=== PATIENT | female | born 1940 | race African-American/Black ===

== ENCOUNTER 2016-10-31 14:16 | Outpatient (CLI) | payer MEDICARE ==
[~2016-10-31] VITALS: Ht 165.1 cm; Wt 69.4 kg
[2016-10-31 14:34] VITALS: BP_SYST 176; BP_DIAS 88; BP_DIAS 96
[2016-11-06] MEDS ORDERED: METF850T2 PO (17:11)
== END 2016-10-31 23:59 | disposition home or self-care (01) ==
LOC: CSC 14:16
PROVIDERS: ATTEND Internal Medicine
DX: F01.50 Vascular dementia, unspecified severity, without behavioral disturbance, psychotic disturbance, mood disturbance, and anxiety (principal); I10 Essential (primary) hypertension; E78.5 Hyperlipidemia, unspecified; M19.042 Primary osteoarthritis, left hand; M19.041 Primary osteoarthritis, right hand; T44.7X6A Underdosing of beta-adrenoreceptor antagonists, initial encounter; Y92.039 Unspecified place in apartment as the place of occurrence of the external cause; K59.09 Other constipation; E03.9 Hypothyroidism, unspecified; E11.9 Type 2 diabetes mellitus without complications; Z79.84 Long term (current) use of oral hypoglycemic drugs; E83.52 Hypercalcemia; N39.41 Urge incontinence; F32.9 Major depressive disorder, single episode, unspecified; R45.3 Demoralization and apathy
CPT/HCPCS: G0463

== ENCOUNTER 2019-03-23 21:38 | Inpatient (IN) | payer MEDICARE, OTHER ==
[~2019-03-23] VITALS: Ht 167.6 cm; Wt 44.6 kg
[~2019-03-23 21:38] MED LIST: METF-441 PO
--- NOTE | 2019-03-23 21:50 | NUR ---
BIB AMBULANCE. DTR PRESENT AT THE BED SIDE. DTR REPORTED INCREASED WEAKNESS AND LATHARGIC SINCE FRIDAY NIGHT. PMH: DM TYPE 2, ANIMAL THERAPIST SHUNT IN PLACE. VSS . PLACED ON A MONITOR . WILL CONT TO MONITOR ,
--- NOTE | 2019-03-23 22:08 | NUR ---
FSBS:[id number] DR EDDY AT THE BED SIDE
[2019-03-23] MEDS ORDERED: IV NS 0.9% 1,000 ML BAG IV ONE ×2 (22:30→23:00)
[2019-03-23 22:50] LABS: WHITE BLOOD COUNT (AUTO) 8.7 K/uL (4.3-11.0)
[2019-03-23 22:51] LABS: HEMATOCRIT 39 % (33-45); HEMOGLOBIN 12.7 g/dL (11.5-14.8); LYMPHOCYTES % (AUTO) 3.5 % (20.0-44.0); MEAN CORPUSCULAR HGB CONC 32 g/dl (31.0-36.0); MEAN CORPUSCULAR VOLUME 91 fL (82-100); MONOCYTES % (AUTO) 3.1 % (2.0-12.0); NEUTROPHILS % (AUTO) 93.4 % (43.0-81.0); PLATELET COUNT (AUTO) 115 /CMM (150-450); RED BLOOD CELL COUNT(AUTO) 4.32 MIL/uL (4.0-5.2)
[2019-03-23 22:53] LABS: BILIRUBIN,TOTAL 0.3 mg/dL (0.2-1.0); CALCIUM, SERUM 10.3 mg/dL (8.5-10.1); CARBON DIOXIDE 34 mmol/L (21-32); CHLORIDE 122 mmol/L (98-107); CREATININE 0.8 mg/dL (0.6-1.3); GLUCOSE 300 mg/dL (74-106); UREA NITROGEN, BLOOD 32 mg/dL (7-18)
[2019-03-23 22:54] LABS: ALANINE AMINOTRANSFERASE 63 U/L (12-78); ALBUMIN 2.7 g/dL (3.4-5.0); ALKALINE PHOSPHATASE 123 U/L (46-116); ASPARTATE AMINOTRANSFERASE 4 U/L (15-37); TOTAL PROTEIN, SERUM 6.1 g/dL (6.4-8.2)
[2019-03-23 22:55] LABS: POTASSIUM 2.4 mmol/L (3.5-5.1); SODIUM SERUM 167 mmol/L (136-145)
[2019-03-23 23:14] LABS: APPEARANCE,URINE SLIGHTLY CLOUDY (CLEAR); COLOR,URINE YELLOW (YELLOW); PROTEIN,URINE 30 mg/dl (NEGATIVE); UGLUCOSE 500 MG/DL mg/dL (NEGATIVE)
[2019-03-23 23:15] LABS: BILIRUBIN,URINE NEGATIVE (NEGATIVE); BLOOD, URINE TRACE Ery/uL (NEGATIVE); KETONES,URINE NEGATIVE (NEGATIVE); LEUKOCYTE ESTERASE ,URINE NEGATIVE (NEGATIVE); NITRITE, URINE NEGATIVE (NEGATIVE)
[2019-03-23] MEDS ORDERED: POTASSIUM CL. PREMIX PERIPHER. 200 ML ONE (23:17)
[2019-03-23] MEDS: POTASSIUM CL. PREMIX PERIPHER. 50 ML IV SCH (23:26)
[2019-03-23] MEDS ORDERED: IV 1/2NS 1000 ML 1,000 ML IV PRN (23:38)
--- NOTE | 2019-03-23 23:40 | NUR ---
311-2 TELE DX DEHYDRATION, HYPOKALCEMIA, HYPERNATREMIA
--- NOTE | 2019-03-23 23:54 | NUR ---
REPORT GIVEN TO MITCH ON THIRD FLOOR
[2019-03-24] VITALS (7 sets, daily range): BP systolic 130–149; BP diastolic 72–86
[2019-03-24] MEDS ORDERED: MAG HYDROX/AL HYDROX/SIMETH 30 ML UDC PO PRN
[2019-03-24] MEDS ORDERED: DEXTROSE 50%-WATER 50 ML DISP.SYRIN IV PRN
[2019-03-24] MEDS ORDERED: ONDANSETRON HCL/PF 4 MG/2 ML VIAL IVP PRN
[2019-03-24] MEDS ORDERED: HYDROCODONE/APAP 5/325MG 1 EACH TABLET PO PRN
[2019-03-24] MEDS ORDERED: MAGNESIUM HYDROXIDE 30 ML UDC PO PRN
[2019-03-24] MEDS ORDERED: ZOLPIDEM TARTRATE 5 MG TABLET PO PRN
[2019-03-24] MEDS ORDERED: Z GUARD REMEDY 2 OZ OINT TP PRN
[2019-03-24] MEDS ORDERED: ACETAMINOPHEN 325 MG TABLET PO PRN
--- NOTE | 2019-03-24 00:25 | NUR ---
dredge master opening notes Received Pt from ER nurse Lore. Pt is awake and aphasic. Pt's daughter at the bed side. Pt's daughter helped with the admission process. Pt potassium was 2.4 and received 2 bags of potassium with Lore and will continue to have 2 more bags of potassium. Pt's glucose was 155 and gave 2 Units of regular insulin. VS is stable Pt is on tele monitor Sinus Rhythm. Safety precaution is maintained. Bed at low position and call light is within reach. Will continue to monitor.
--- NOTE | 2019-03-24 00:30 | NUR ---
TRANSFERRED TO RM 311-2 ON THIRD FLOOR IN STABLE CONDITION UNDER ACLS PROTOCOL
[2019-03-24] MEDS: POTASSIUM CL. PREMIX PERIPHER. 50 ML IV SCH ×9 (00:31→16:27)
--- NOTE | 2019-03-24 00:33 | NUR ---
TWO BAG OF KCL WAS ADMINISTERED AND ANOTHER TWO BAG WAS HANDED TO WILDA ON THIRD FLOOR TO BE ADMINISTERED.
[2019-03-24 00:34] LABS: RBC,URINE 0-2 /HPF (0-2)
[2019-03-24 00:35] LABS: BACTERIA,URINE Many /HPF (None Seen); SQUAMOUS EPITHELIAL CELL,UR Few /HPF (None Seen); WBC,URINE 0-2 /HPF (0-3)
[2019-03-24] MEDS: BLOOD SUGAR DIAGNOSTIC 1 EACH STRIP IN SCH ×4 (00:42→17:45)
[2019-03-24] MEDS: INSULIN REGULAR, HUMAN 100 UNIT/ML 3 ML VIAL SQ PRN ×3 (00:50→17:51)
--- NOTE | 2019-03-24 04:10 | NUR ---
gasket former notes Pt is resting in bed comfortably with eyes closed. No signs of distress or discomfort. NO SOB. Iv sites on L AC is intact and patent. Administered IV fluids 0.45%NS 1000ml rate @ 75ml/hr. Will continue to monitor.
[2019-03-24 06:53] LABS: HEMOGLOBIN 11.2 g/dL (11.5-14.8); RED BLOOD CELL COUNT(AUTO) 3.82 MIL/uL (4.0-5.2); WHITE BLOOD COUNT (AUTO) 6.8 K/uL (4.3-11.0)
[2019-03-24 06:54] LABS: BASOPHILS % (AUTO) 0.1 % (0.0-2.0); EOSINOPHILS % (AUTO) 0.1 % (0.0-6.0); HEMATOCRIT 35 % (33-45); LYMPHOCYTES # (AUTO) 0.3 /CMM (0.8-4.8); LYMPHOCYTES % (AUTO) 4.5 % (20.0-44.0); MEAN CORPUSCULAR HGB CONC 32 g/dl (31.0-36.0); MEAN CORPUSCULAR VOLUME 90 fL (82-100); MONOCYTES # (AUTO) 0.2 /CMM (0.1-1.30); MONOCYTES % (AUTO) 3.3 % (2.0-12.0); NEUTROPHILS # (AUTO) 6.3 /CMM (1.8-8.9); PLATELET COUNT (AUTO) 83 /CMM (150-450)
--- NOTE | 2019-03-24 07:00 | NUR ---
freelance designer closing notes Pt is aphasic/non verbal. Pt is resting in bed comfortbaly. Arouse easily. No signs of acute distress or discomfort. VS is stable. IV sites on left AC is intact, patent and infusing well. Pt is on bus monitor-SR with occasionally PVC, occasionally PAC and occasionally junctional. Pt is NPO per MD order. Pt blood glucose in the morning was 128. Safety precaution is maintained. Bed at low position and call light. Will endorse to morning nurse for ALEX.
[2019-03-24 07:17] LABS: CALCIUM, SERUM 8.5 mg/dL (8.5-10.1); CARBON DIOXIDE 35 mmol/L (21-32); CHLORIDE 125 mmol/L (98-107); CREATININE 0.4 mg/dL (0.6-1.3); GLUCOSE 144 mg/dL (74-106); UREA NITROGEN, BLOOD 22 mg/dL (7-18)
--- NOTE | 2019-03-24 07:17 | NUR ---
DRY MILL OPERATOR NOTE REPORTED CRITICAL LAB RESULTS NA 167 AND K 2.6 TO PRIMARY HOSPITALIST CARLOS ALLEN NP PER PROTOCOL. NO ORDERS AT THIS TIME, PER CARLOS HE WILL REVIEW AND PT IS PENDING NEPHROLOGY CONSULT.
[2019-03-24 07:18] LABS: MAGNESIUM 1.8 mg/dL (1.8-2.4); PHOSPHORUS 1.8 mg/dL (2.5-4.9)
[2019-03-24 07:22] LABS: POTASSIUM 2.6 mmol/L (3.5-5.1); SODIUM SERUM 167 mmol/L (136-145)
--- NOTE | 2019-03-24 07:30 | NUR ---
HOT SAW HELPER OPENING NOTE RECEIVED PT IN BED, SEMI-FOWLERS. PT IS NON-VERBAL, EYES OPEN SPONTANEOUSLY TO VERBAL AND TACTILE STIMULI. NO ACUTE DISTRESS NOTED, BREATHING IS EVEN AND UNLABORED ON ROOM AIR. LEFT AC #20G IS INFUSING 1/2 NS @ 75 ML/HR WITHOUT REDNESS OR SWELLING. ASPIRATION PRECAUTIONS MAINTAINED. PT IS NPO PENDING SWALLOW EVAL. 1:1 SITTER AT THE BEDSIDE FOR SAFETY. ALL NEEDS ATTENDED TO. BED IS LOCKED AND IN LOWEST POSITION, SIDE RAILS UP X2, BED ALARM ON, CALL LIGHT AND POSSESSIONS WITHIN REACH.
[2019-03-24 07:43] LABS: CHOLESTEROL 187 mg/dL (<200); HDL CHOLESTEROL 45 mg/dL (40-60); LDL 109 mg/dL (0-99); THYROID STIMULATING HORMONE 0.362 uIU/mL (0.358-3.74); TRIGLYCERIDES 229 mg/dL (30-150)
--- NOTE | 2019-03-24 07:45 | NUR ---
BUSINESS PROCESS EXPERT NOTE REPORTED TO PRIMARY HOSPITALIST GURINDER ALLEN NP THAT PT PRESENTS WITH INCREASED LEFT SIDED WEAKNESS SINCE ADMISSION WITH NO HEAD IMAGING DONE SINCE ER ADMISSION. PER DMITIRY HE WILL REVIEW AND PLACE ORDERS IF HEAD IMAGING INDICATED.
[2019-03-24] MEDS ORDERED: METF-440 PO (08:39)
[2019-03-24] MEDS: FAMOTIDINE/PF INJ 20 MG/2 ML VIAL IV SCH ×2 (08:40→17:45)
[2019-03-24] MEDS ORDERED: POTA20TA83 PO (08:43)
[2019-03-24] MEDS ORDERED: AMLO10TA4 PO (08:43)
[2019-03-24] MEDS ORDERED: MULT-1200 PO (08:43)
[2019-03-24] MEDS ORDERED: LISI40TA4 PO (08:43)
[2019-03-24] MEDS ORDERED: PANTOPRAZOLE 40 MG VIAL IV SCH (09:00)
[2019-03-24] MEDS ORDERED: IV 1/2NS 1000 ML 1,000 ML IV PRN (10:13)
--- NOTE | 2019-03-24 10:15 | NUR ---
AIR BREAKER OPERATOR NOTE PER AYAKA IN PHARMACY POTASSIUM CHLORIDE MIX COMPATIBLE WITH 1/2 NS FLUIDS.
[2019-03-24] MEDS ORDERED: NEUTRA PHOS 1 POWD.PACKET PO ONE ×2 (10:30→12:00)
--- NOTE | 2019-03-24 10:53 | NUR ---
WOUND CARE CONSULT: PT PRESENTS WITH SACRAL ULCER WITH SURROUNDING DEEP TISSUE INJURY, BUTTOCK AND PERINEAL RASH WITH SKIN STAINING AND RT HEEL INTACT DEEP TISSUE INJURY AND LEFT HEEL SCAR, PRESENT ON ADMISSION. PT IS VERY THIN WITH CURRENT STACY SCORE OF 11. PT ON NUSRAT ISOFLEX LOW AIRLOSS BED. ALL SKIN PROTECTION AND WOUND CARE RECOMMENDATIONS DISCUSSED WITH NURSING STAFF. RECOMMEND SURGICAL CONSULT. DR MARY GRACE PRICE NOTIFIED OF CONSULT REQUEST. IN AGREEMENT WITH PLAN OF CARE. WILL SEE PRN. Addendum: 03/24/19 at 1055 by JOSE VALLES WNDNU Amended: Links added.
[2019-03-24] MEDS ORDERED: HYDROGEL DRESSING 90 GM TUBE TP PRN (11:00)
[2019-03-24] MEDS: HYDROGEL DRESSING 90 GM TUBE TP SCH (11:52)
[2019-03-24] MEDS: IV 1/2NS 1000 ML 1,000 ML IV PRN ×2 (11:53→22:00)
[2019-03-24] MEDS: LISINOPRIL (20MG) 20 MG TABLET PO SCH (16:26)
[2019-03-24] MEDS ORDERED: ENSURE ENLIVE 237 ML LIQUID (VANILLA) PO SCH (17:00)
[2019-03-24] MEDS: ENSURE ENLIVE 237 ML LIQUID (VANILLA) PO SCH (17:45)
[2019-03-24] MEDS: CLOTRIMAZOLE 1% 15 GM TUBE TP SCH (17:45)
--- NOTE | 2019-03-24 18:19 | NUR ---
FLORIST HELPER CLOSING NOTE PT IN BED, SEMI-FOWLERS. PT IS NON-VERBAL, EYES OPEN SPONTANEOUSLY TO VERBAL AND TACTILE STIMULI. NO ACUTE DISTRESS NOTED, BREATHING IS EVEN AND UNLABORED ON ROOM AIR. PT ON MOBILE APPLICATION ENGINEER WITH SINUS TACHYCARDIA WIH PVC AND PJC, HR 110 AT THIS TIME. LEFT AC #20G IS INFUSING 1/2 NS @ 75 ML/HR WITHOUT REDNESS OR SWELLING. ASPIRATION PRECAUTIONS MAINTAINED. ADLS AND WOUND CARE PROVIDED ORDERED AND PT TURNED AND REPOSITIONED Q2H FOR THE DURATION OF THE SHIFT. 1:1 SITTER AT THE BEDSIDE FOR SAFETY. ALL NEEDS ATTENDED TO. BED IS LOCKED AND IN LOWEST POSITION, SIDE RAILS UP X2, BED ALARM ON, CALL LIGHT AND POSSESSIONS WITHIN REACH. WILL ENDORSE TO REGISTERED NURSE POST PARTUM NURSE FOR CONTINUITY OF CARE.
--- NOTE | 2019-03-24 18:51 | NUR ---
MS PAULINO NOTE NOAH GILLETTE FROM CRISIS TEAM, SHE IS PLACING PT ON HOLD AND WILL BRING UP DOCUMENTATION SHORTLY. Addendum: 03/24/19 at 1852 by SARAHI IGLESIAS RN PLEASE DISREGARD, WRONG PT
--- NOTE | 2019-03-24 18:53 | NUR ---
MS RN NOTE URINE COLLECTED VIA STRAIGHT CATH, DENIS JERRY IN LAB FOR DISTRIBUTION COORDINATOR
--- NOTE | 2019-03-24 19:30 | NUR ---
MS RN NOTES RECEIVED ON BED SLEEPING ON SEMI LEFT SIDE POSITION,BREATHING REGULAR,NOT IN ANY FORM OF RESPIRATORY DISTRESS.IVF 1/2 NS AT 100ML/HR RATE IN PROGRESS VIA IV PUMP ON LAC,SITTER AT BEDSIDE FOR SAFETY.SACRAL DRESSING INTACT AND DRY.CALL LIGHT IN REACH,NEEDS ANTICIPATED.
[2019-03-24 20:31] LABS: URINE SODIUM, RANDOM 64 mmol/l (40-220)
[2019-03-24 21:25] LABS: OSMOLALITY,URINE 486 mOS/kg (340-1090)
[2019-03-25] VITALS: BP_SYST 153; BP_DIAS 75; BP_DIAS 78
--- NOTE | 2019-03-25 | NUR ---
HEAD BOYS TENNIS COACH NOTES ACCU-CHECK BLOOD SUGAR CHECK 378,COVERED WITH HUMULIN R 15 UNITS PER SLIDING SCALE.
[2019-03-25] MEDS: BLOOD SUGAR DIAGNOSTIC 1 EACH STRIP IN SCH ×5 (00:11→23:49)
[2019-03-25] MEDS: INSULIN REGULAR, HUMAN 100 UNIT/ML 3 ML VIAL SQ PRN ×5 (00:19→23:52)
--- NOTE | 2019-03-25 03:00 | NUR ---
NAIL FEEDER NOTES SOUND ASLEEP,SITTER AT BEDSIDE.
[2019-03-25 04:00] VITALS: BP 139/69
--- NOTE | 2019-03-25 05:30 | NUR ---
MS RN NOTES ACCU-CHECK BLOOD SUGAR CHECK 180,COVERED WITH HUMULIN R 3 UNITS PER SLIDING SCALE.IVF IN PROGRESS.
--- NOTE | 2019-03-25 06:05 | NUR ---
COMIC BOOK DESIGNER NOTES REMAINS NON VERBAL,OPEN EYES ONLY,SACRAL WOUND DRESSING CHANGED WITH MEPILEX,ID RECOMMEND SURGICAL CONSULT.LEFT ARMS REMAINS FLACCID AND WEAK ON RIGHT ARM.IVF IN PROGRESS.MORNING CARE ADMINISTERED BY ANNETTA BLEVINS TOLERATED WELL.IN NO ACUTE DISTRESS.WILL ENDORSE TO DAY NURSE FOR ALEX.
--- NOTE | 2019-03-25 07:30 | NUR ---
veteran appeals reviewer Opening Note Patient currently resting in bed with eyes open in Semi-Fowlers position, no acute distress noted. Aspiration precautions maintained. Easily arousable to verbal and tactile stimuli. Alert and oriented to self, non-verbal. No acute neurological changes. Respirations even and unlabored on room air. External media monitor in place: current rhythm junctional with PAC and PVC at 97 bpm. Peripheral IV access to the left AC 20 gauge, intact, patent and infusing 0.45% NS at 100 ml/hr. as ordered. Safety and fall precautions in place: bed in lowest and locked position, side rails up x2, bed alarm on, call light and personal possessions in reach, room well lit, floor clutter-free. Patient currently clean, dry and comfortable, on low-air loss mattress. Will continue to monitor and intervene as needed.
[2019-03-25 08:00] VITALS: BP 149/83
--- NOTE | 2019-03-25 08:30 | NUR ---
correctional supervisor lieutenant Note Seen and examined by MD. at bedside. Given verbal update to daughter via telephone. Will continue to monitor.
[2019-03-25] MEDS: IV 1/2NS 1000 ML 1,000 ML IV PRN (08:33)
[2019-03-25] MEDS: ASCORBIC ACID 500 MG TABLET PO SCH (08:34)
[2019-03-25] MEDS: LISINOPRIL (20MG) 20 MG TABLET PO SCH (08:34)
[2019-03-25] MEDS: MULTIVIT W/MINERALS 1 TAB TABLET PO SCH (08:34)
[2019-03-25] MEDS: AMLODIPINE BESYLATE 10 MG TABLET PO SCH (08:34)
[2019-03-25] MEDS: HYDROGEL DRESSING 90 GM TUBE TP SCH (08:37)
[2019-03-25] MEDS: CLOTRIMAZOLE 1% 15 GM TUBE TP SCH ×2 (08:37→17:40)
[2019-03-25] MEDS: FAMOTIDINE/PF INJ 20 MG/2 ML VIAL IV SCH ×2 (08:38→17:41)
[2019-03-25] MEDS: ENSURE ENLIVE 237 ML LIQUID (VANILLA) PO SCH ×3 (08:38→17:41)
[2019-03-25] MEDS ORDERED: MULTIVIT W/MINERALS 1 TAB TABLET PO SCH (09:00)
[2019-03-25 09:04] LABS: BASOPHILS % (AUTO) 0.3 % (0.0-2.0); EOSINOPHILS % (AUTO) 0.7 % (0.0-6.0); HEMATOCRIT 36 % (33-45); HEMOGLOBIN 11.3 g/dL (11.5-14.8); LYMPHOCYTES # (AUTO) 0.4 /CMM (0.8-4.8); LYMPHOCYTES % (AUTO) 5.3 % (20.0-44.0); MEAN CORPUSCULAR HGB CONC 32 g/dl (31.0-36.0); MEAN CORPUSCULAR VOLUME 91 fL (82-100); MONOCYTES # (AUTO) 0.2 /CMM (0.1-1.30); MONOCYTES % (AUTO) 2.9 % (2.0-12.0); NEUTROPHILS # (AUTO) 6.2 /CMM (1.8-8.9); NEUTROPHILS % (AUTO) 90.8 % (43.0-81.0); PLATELET COUNT (AUTO) 70 /CMM (150-450); RED BLOOD CELL COUNT(AUTO) 3.95 MIL/uL (4.0-5.2); WHITE BLOOD COUNT (AUTO) 6.8 K/uL (4.3-11.0)
[2019-03-25 09:21] LABS: CALCIUM, SERUM 8.7 mg/dL (8.5-10.1); CARBON DIOXIDE 32 mmol/L (21-32); CHLORIDE 114 mmol/L (98-107); CREATININE 0.6 mg/dL (0.6-1.3); MAGNESIUM 1.7 mg/dL (1.8-2.4); PHOSPHORUS 2.2 mg/dL (2.5-4.9); SODIUM SERUM 154 mmol/L (136-145); UREA NITROGEN, BLOOD 19 mg/dL (7-18)
[2019-03-25 09:28] LABS: GLUCOSE 360 mg/dL (74-106); POTASSIUM 2.6 mmol/L (3.5-5.1)
[2019-03-25 09:55] LABS: LYMPHOCYTES % (MANUAL) 3 % (16-48); MONOCYTES % (MANUAL) 5 % (0-11.0); NEUTROPHILS % (MANUAL) 92 (42-76)
[2019-03-25] MEDS ORDERED: NEUTRA PHOS 1 POWD.PACKET PO ONE (10:00)
[2019-03-25] MEDS: Magnesium 1GM/D5W 100ML PREMIX 100 ML IV SCH ×2 (11:29→13:14)
[2019-03-25] MEDS: POTASSIUM CL. PREMIX PERIPHER. 50 ML IV SCH ×6 (11:29→18:53)
[2019-03-25] MEDS ORDERED: SILVER NITRATE APPLICATOR 1 EA BOX TP ONE (12:00)
--- NOTE | 2019-03-25 18:30 | NUR ---
power shovel operator Closing Note Patient currently resting in bed with eyes open in Semi-Fowlers position, no acute distress noted. Aspiration precautions maintained. Easily arousable to verbal and tactile stimuli. Alert and oriented to self, non-verbal. No acute neurological changes. Respirations even and unlabored on room air. External satellite project site monitor in place: current rhythm junctional with PAC and PVC at 92 bpm. Peripheral IV access to the left AC 20 gauge, intact, patent and infusing fluids as ordered. Safety and fall precautions in place: bed in lowest and locked position, side rails up x2, bed alarm on, call light and personal possessions in reach, room well lit, floor clutter-free. Patient currently clean, dry and comfortable, on low-air loss mattress. Turned and repositioned every 2 hours and as tolerated to maintain skin integrity. Family present at bedside. No acute events this shift. Will endorse to Pina RN for continuity of care.
--- NOTE | 2019-03-25 19:30 | NUR ---
PROFESSIONAL BASS FISHERMAN NOTES RECEIVED ON BED HAVING DINNER FOOD,WITH DAUGHTER AT BEDSIDE.NOTED ALMOST 100% OF HER DINNER FOOD CONSUMED.NEGATIVE FOR ASPIRATION.HOB ELEVATED .LAST DOSE OF POTASSIUM IV INFUSING VIA IV PUMP.IV SITE REMAINS PATENT.LEFT ARM REMAINS FLACCID AND WEAKNESS ON THE RIGHT ARM.MEPILEX ON SACRAL AREA INTACT AND DRY.REPOSITION PER PROTOCOL.ON GEL BED FOR WOUND MANAGEMENT.WILL CONTINUE TO MONITOR STATUS.
[2019-03-25 20:00] VITALS: BP 136/62
--- NOTE | 2019-03-25 21:23 | NUR ---
ADMITTING COORDINATOR NOTES STARTED ON IVF 1 WITH 40MEQ KCL AT 100ML/HR RATE ORDERED.
--- NOTE | 2019-03-26 | NUR ---
DIRECTOR INSTRUMENTATION NOTES ACCU-CHECK BLOOD SUGAR CHECK 225,COVERED WITH HUMULIN R 6 UNITS ,GIVEN SQ ON RIGHT LOWER QUADRANT
[2019-03-26 00:42] VITALS: BP 130/72
[2019-03-26 04:00] VITALS: BP 139/69
[2019-03-26] MEDS: BLOOD SUGAR DIAGNOSTIC 1 EACH STRIP IN SCH ×3 (05:26→17:25)
--- NOTE | 2019-03-26 05:30 | NUR ---
FOOD MANAGER NOTES ACCU-CHECK BLOOD SUGAR CHECK 250,COVERED WITH HUMULIN R 6 UNITS GIVEN SQ ON LEFT DELTOID
[2019-03-26] MEDS: INSULIN REGULAR, HUMAN 100 UNIT/ML 3 ML VIAL SQ PRN ×3 (05:33→17:44)
--- NOTE | 2019-03-26 06:25 | NUR ---
PAINTING SUPERVISOR NOTES NO SIGNIFICANT CHANGE IN STATUS.REMAINS NON VERBAL,IVF IN PROGRESS,MORNING CARE RENDERED,TOLERATED WELL.FOR SACRAL WOUND DEBRIDEMENT BY BERNY TODAY,CONSENT ON CHART.REPOSITION PER PROTOCOL.CALL LIGHT IN REACH,NEEDS ATTENDED.
[2019-03-26 07:05] LABS: BASOPHILS % (AUTO) 0.1 % (0.0-2.0); CALCIUM, SERUM 8.5 mg/dL (8.5-10.1); CARBON DIOXIDE 35 mmol/L (21-32); CHLORIDE 115 mmol/L (98-107); CREATININE 0.4 mg/dL (0.6-1.3); EOSINOPHILS % (AUTO) 0.1 % (0.0-6.0); GLUCOSE 259 mg/dL (74-106); HEMATOCRIT 29 % (33-45); HEMOGLOBIN 9.6 g/dL (11.5-14.8); LYMPHOCYTES # (AUTO) 0.3 /CMM (0.8-4.8); LYMPHOCYTES % (AUTO) 5.4 % (20.0-44.0); MAGNESIUM 2.1 mg/dL (1.8-2.4); MEAN CORPUSCULAR HGB CONC 33 g/dl (31.0-36.0); MEAN CORPUSCULAR VOLUME 89 fL (82-100); MONOCYTES # (AUTO) 0.2 /CMM (0.1-1.30); MONOCYTES % (AUTO) 2.9 % (2.0-12.0); NEUTROPHILS % (AUTO) 91.5 % (43.0-81.0); PHOSPHORUS 2.3 mg/dL (2.5-4.9); PLATELET COUNT (AUTO) 66 /CMM (150-450); POTASSIUM 3.6 mmol/L (3.5-5.1); RED BLOOD CELL COUNT(AUTO) 3.24 MIL/uL (4.0-5.2); SODIUM SERUM 152 mmol/L (136-145); UREA NITROGEN, BLOOD 17 mg/dL (7-18); WHITE BLOOD COUNT (AUTO) 5.5 K/uL (4.3-11.0)
--- NOTE | 2019-03-26 07:15 | NUR ---
filter operator Opening Note Patient currently resting in bed with eyes open in Semi-Fowlers position, no acute distress noted. Aspiration precautions maintained. Easily arousable to verbal and tactile stimuli. Alert and oriented to self, non-verbal. No acute neurological changes. Respirations even and unlabored on room air. External production internship in place: current rhythm junctional with PAC and PVC at 85 bpm. Peripheral IV access to the left AC 20 gauge, intact, patent and infusing fluids as ordered. Safety and fall precautions in place: bed in lowest and locked position, side rails up x2, bed alarm on, call light and personal possessions in reach, room well lit, floor clutter-free. Patient currently clean, dry and comfortable, on low-air loss mattress. Will continue to monitor and intervene as needed.
[2019-03-26 08:00] VITALS: BP 154/77
[2019-03-26 08:38] LABS: BAND % (MANUAL) 1 % (0.0-5.0); LYMPHOCYTES % (MANUAL) 8 % (16-48); MONOCYTES % (MANUAL) 3 % (0-11.0); NEUTROPHILS % (MANUAL) 88 (42-76)
[2019-03-26] MEDS: MULTIVIT W/MINERALS 1 TAB TABLET PO SCH (09:10)
[2019-03-26] MEDS: ASCORBIC ACID 500 MG TABLET PO SCH (09:10)
[2019-03-26] MEDS: FAMOTIDINE/PF INJ 20 MG/2 ML VIAL IV SCH ×2 (09:10→17:00)
[2019-03-26] MEDS: LISINOPRIL (20MG) 20 MG TABLET PO SCH (09:11)
[2019-03-26] MEDS: ENSURE ENLIVE 237 ML LIQUID (VANILLA) PO SCH ×3 (09:11→17:00)
[2019-03-26] MEDS: AMLODIPINE BESYLATE 10 MG TABLET PO SCH (09:11)
[2019-03-26] MEDS: CLOTRIMAZOLE 1% 15 GM TUBE TP SCH ×2 (09:22→17:36)
[2019-03-26] MEDS: HYDROGEL DRESSING 90 GM TUBE TP SCH (09:23)
[2019-03-26] MEDS ORDERED: NEUTRA PHOS 1 POWD.PACKET PO ONE (10:00)
--- NOTE | 2019-03-26 11:00 | NUR ---
superintendent service Note Seen and examined by MD. at bedside. Given verbal update to daughter via telephone. Will continue to monitor.
[2019-03-26] MEDS ORDERED: NEUTRA PHOS 1 POWD.PACKET NG ONE (12:00)
[2019-03-26 16:00] VITALS: BP 155/67
--- NOTE | 2019-03-26 18:50 | NUR ---
MS RN Closing Note Patient currently resting in bed with eyes open in Semi-Fowlers position, no acute distress noted. Aspiration precautions maintained. Easily arousable to verbal and tactile stimuli. Alert and oriented to self, non-verbal. Tracks with eyes. No acute neurological changes. Respirations even and unlabored on room air. Peripheral IV access to the left AC 20 gauge, intact, patent and infusing fluids as ordered. Safety and fall precautions in place: bed in lowest and locked position, side rails up x2, bed alarm on, call light and personal possessions in reach, room well lit, floor clutter-free. Patient currently clean, dry and comfortable, on low-air loss mattress. Turned and repositioned every 2 hours and as tolerated to maintain skin integrity. Family present at bedside. No acute events this shift. Wound care rendered as ordered. Will endorse to nightshift RN for continuity of care.
--- NOTE | 2019-03-26 19:40 | NUR ---
MSRN ASLEEP. APPEARS COMFORTABLE. DAUGHTER AT BEDSIDE. DISCUSSED TO DAUGHTER PLAN OF CARE AND MEDICATION REGIMEN. NEEDS FREQ REPOSITIONING, SACRAL ULCER COVERED WITH MEPILEX, S/P INCISION AND DEBRIDEMENT EARLIER TODAY. NO OTHER NEEDS FOR NOW, CLOSELY WATCHED.
[2019-03-26 20:00] VITALS: BP 131/68
[2019-03-26] MEDS: CEFEPIME 1 GM in IV D5W 50 ML IV SCH (21:46)
--- NOTE | 2019-03-26 22:30 | NUR ---
MSRN IV SITE LEAKING, STARTED 24 GAUGE ON RIGHT HAND WITH GOOD BLOOD RETURN BY RN. REMAINS NONVERBAL . HS CARE STARTED, KEPT DRY CLEAN AND COMFORTABLE. PRESENT IVF INFUSING WELL.
[2019-03-27] MEDS: BLOOD SUGAR DIAGNOSTIC 1 EACH STRIP IN SCH ×5 (00:49→23:27)
[2019-03-27] MEDS: INSULIN REGULAR, HUMAN 100 UNIT/ML 3 ML VIAL SQ PRN ×5 (00:50→23:28)
[2019-03-27 06:21] LABS: EOSINOPHILS % (AUTO) 0.1 % (0.0-6.0); HEMATOCRIT 31 % (33-45); HEMOGLOBIN 10.4 g/dL (11.5-14.8); LYMPHOCYTES # (AUTO) 0.3 /CMM (0.8-4.8); LYMPHOCYTES % (AUTO) 5.1 % (20.0-44.0); MEAN CORPUSCULAR HGB CONC 34 g/dl (31.0-36.0); MEAN CORPUSCULAR VOLUME 89 fL (82-100); MONOCYTES # (AUTO) 0.2 /CMM (0.1-1.30); MONOCYTES % (AUTO) 3.2 % (2.0-12.0); NEUTROPHILS # (AUTO) 5.4 /CMM (1.8-8.9); NEUTROPHILS % (AUTO) 91.6 % (43.0-81.0); PLATELET COUNT (AUTO) 77 /CMM (150-450); RED BLOOD CELL COUNT(AUTO) 3.44 MIL/uL (4.0-5.2)
[2019-03-27 06:23] LABS: CALCIUM, SERUM 8.7 mg/dL (8.5-10.1); CARBON DIOXIDE 34 mmol/L (21-32); CHLORIDE 113 mmol/L (98-107); CREATININE 0.5 mg/dL (0.6-1.3); GLUCOSE 291 mg/dL (74-106); PHOSPHORUS 2.3 mg/dL (2.5-4.9); POTASSIUM 3.5 mmol/L (3.5-5.1); SODIUM SERUM 152 mmol/L (136-145); UREA NITROGEN, BLOOD 20 mg/dL (7-18)
--- NOTE | 2019-03-27 07:00 | NUR ---
MSRN ENDORSED TO INCOMING RN FOR CONTINUITY OF CARE. PATIENT REMAINS UNCHANGED.
[2019-03-27 08:00] VITALS: BP 160/71
[2019-03-27] MEDS: FAMOTIDINE/PF INJ 20 MG/2 ML VIAL IV SCH ×2 (08:59→18:03)
[2019-03-27] MEDS: CEFEPIME 1 GM in IV D5W 50 ML IV SCH (08:59)
[2019-03-27] MEDS: ASCORBIC ACID 500 MG TABLET PO SCH (09:00)
[2019-03-27] MEDS: AMLODIPINE BESYLATE 10 MG TABLET PO SCH (09:00)
[2019-03-27] MEDS: MULTIVIT W/MINERALS 1 TAB TABLET PO SCH (09:00)
[2019-03-27] MEDS: ENSURE ENLIVE 237 ML LIQUID (VANILLA) PO SCH ×3 (09:16→18:03)
[2019-03-27] MEDS: LISINOPRIL (20MG) 20 MG TABLET PO SCH (09:16)
[2019-03-27 09:21] LABS: LYMPHOCYTES % (MANUAL) 4 % (16-48); MONOCYTES % (MANUAL) 4 % (0-11.0); NEUTROPHILS % (MANUAL) 92 (42-76)
[2019-03-27] MEDS: HYDROGEL DRESSING 90 GM TUBE TP SCH (11:07)
[2019-03-27] MEDS: CLOTRIMAZOLE 1% 15 GM TUBE TP SCH ×2 (11:07→17:00)
[2019-03-27] MEDS ORDERED: NEUTRA PHOS 1 POWD.PACKET PO ONE (12:30)
[2019-03-27 16:00] VITALS: BP 153/88
[2019-03-27] MEDS: CEFAZOLIN 1 GM in IV D5W 50 ML IV SCH (19:00)
--- NOTE | 2019-03-27 19:14 | NUR ---
MS RN RECEIVE PT IN BED OPENS EYES NON VERBAL, RESPIRATIONS EVEN AND UNLABORED,STABLE, NO S/S OF DISTRESS, SAFETY MEASURES IN PLACE. WILL CONTINUE TO MONITOR
--- NOTE | 2019-03-27 19:55 | NUR ---
PATIENT ASLEEP. APPEARS COMFORTABLE. DAUGHTER AT BEDSIDE. NEEDS ATTENDED, PT TURNED AND REPOSITIONED Q2H, WOUND CARE PERFORMED, POST DEBRIDEMENT PICTURE TAKEN AND PLACED IN THE CHART. IV ASSESS INTACT AND PATENT, IV FLUID IS RUNNING ORDERED. WILL ENDORSE TO NEXT SHIFT FOR ALEX.
[2019-03-27 20:00] VITALS: BP 151/77
[2019-03-27] MEDS ORDERED: CEPHALEXIN MONOHYDRATE 250 MG CAPSULE PO SCH (21:00)
[2019-03-27] MEDS: Potassium Chloride 20 MEQ in IV D5W 1,000 ML IV PRN (21:09)
[2019-03-28] MEDS: CEFAZOLIN 1 GM in IV D5W 50 ML IV SCH ×3 (01:55→17:07)
[2019-03-28] MEDS: BLOOD SUGAR DIAGNOSTIC 1 EACH STRIP IN SCH ×3 (05:18→16:46)
[2019-03-28] MEDS: INSULIN REGULAR, HUMAN 100 UNIT/ML 3 ML VIAL SQ PRN ×4 (05:20→21:56)
--- NOTE | 2019-03-28 06:19 | NUR ---
MS RN ASLEEP AND EASILY AWAKEN, RESPIRATION EVEN AND UNLABORED, KEPT CLEAN AND DRY AND COMFORTABLE. NEEDS ATTENDED AND ANTICIPATED, NURSING CARE RENDERED, OFFLOAD HEELS AND ELBOWS. REPOSITION EVERY 2 HOURS. TREATMENT ORDERED TO THE WOUND. GOOD SKIN CARE PROVIDED. SAFETY MEASURES AT ALL TIMES. ENDORSE TO THE NEXT SHIFT.
[2019-03-28 06:39] LABS: EOSINOPHILS % (AUTO) 0.1 % (0.0-6.0); HEMATOCRIT 28 % (33-45); HEMOGLOBIN 9.3 g/dL (11.5-14.8); LYMPHOCYTES # (AUTO) 0.3 /CMM (0.8-4.8); LYMPHOCYTES % (AUTO) 4.2 % (20.0-44.0); MEAN CORPUSCULAR HGB CONC 34 g/dl (31.0-36.0); MEAN CORPUSCULAR VOLUME 89 fL (82-100); MONOCYTES # (AUTO) 0.2 /CMM (0.1-1.30); MONOCYTES % (AUTO) 3.5 % (2.0-12.0); NEUTROPHILS # (AUTO) 5.7 /CMM (1.8-8.9); NEUTROPHILS % (AUTO) 92.2 % (43.0-81.0); PLATELET COUNT (AUTO) 80 /CMM (150-450); RED BLOOD CELL COUNT(AUTO) 3.12 MIL/uL (4.0-5.2); WHITE BLOOD COUNT (AUTO) 6.2 K/uL (4.3-11.0)
[2019-03-28 06:43] LABS: CALCIUM, SERUM 8.4 mg/dL (8.5-10.1); CARBON DIOXIDE 32 mmol/L (21-32); CHLORIDE 110 mmol/L (98-107); CREATININE 0.5 mg/dL (0.6-1.3); GLUCOSE 296 mg/dL (74-106); PHOSPHORUS 2.3 mg/dL (2.5-4.9); POTASSIUM 3.5 mmol/L (3.5-5.1); SODIUM SERUM 147 mmol/L (136-145); UREA NITROGEN, BLOOD 19 mg/dL (7-18)
[2019-03-28 07:42] LABS: LYMPHOCYTES % (MANUAL) 9 % (16-48); MONOCYTES % (MANUAL) 1 % (0-11.0); NEUTROPHILS % (MANUAL) 90 (42-76)
[2019-03-28 08:00] VITALS: BP 130/63
[2019-03-28] MEDS: MULTIVIT W/MINERALS 1 TAB TABLET PO SCH (08:54)
[2019-03-28] MEDS: ASCORBIC ACID 500 MG TABLET PO SCH (08:54)
[2019-03-28] MEDS: FAMOTIDINE/PF INJ 20 MG/2 ML VIAL IV SCH ×2 (08:54→17:07)
[2019-03-28] MEDS: AMLODIPINE BESYLATE 10 MG TABLET PO SCH (08:56)
[2019-03-28] MEDS: LISINOPRIL (20MG) 20 MG TABLET PO SCH (08:57)
[2019-03-28] MEDS ORDERED: NEUTRA PHOS 1 POWD.PACKET PO ONE (09:00)
[2019-03-28] MEDS: THERAHONEY GEL 1.5 OZ TUBE TP SCH (09:00)
[2019-03-28] MEDS: CLOTRIMAZOLE 1% 15 GM TUBE TP SCH ×2 (09:00→17:09)
[2019-03-28] MEDS: HYDROGEL DRESSING 90 GM TUBE TP SCH (09:00)
[2019-03-28] MEDS: ENSURE ENLIVE 237 ML LIQUID (VANILLA) PO SCH ×3 (09:02→17:09)
[2019-03-28 09:19] VITALS: BP 130/63
[2019-03-28] MEDS: Potassium Chloride 20 MEQ in IV D5W 1,000 ML IV PRN (11:52)
--- NOTE | 2019-03-28 12:00 | NUR ---
PETE APPLIED TO THE AFFECTED ARIA DIRECTED.
[2019-03-28 15:52] VITALS: BP 139/76
--- NOTE | 2019-03-28 19:00 | NUR ---
PATIENT ASLEEP. NO S/S PAIN OR DISCOMFORT. DAUGHTER AT BEDSIDE. NEEDS ATTENDED, PT TURNED AND REPOSITIONED Q2H, WOUND CARE PERFORMED, IV ASSESS INTACT AND PATENT, IV FLUID IS RUNNING ORDERED. WILL ENDORSE TO NEXT SHIFT FOR ALEX.
--- NOTE | 2019-03-28 19:54 | NUR ---
RN MS OPENING NOTES PT IN BED, SLEEPING, EASILY AROUSED TO NAME CALL, BREATHING EVEN AND UNLABORED ON ROOM AIR. IN NO APPARENT PAIN OR DISCOMFORT AT THIS TIME, IV ACCESS ON THE R HAND 24G WITH 1/2 NS WITH 40 MEQ @100ML./HR BED IN LOWEST LOCKED POSITION, CALL LIGHT WITHIN REACH AT ALL TIMES. DAUGHTER AT BEDSIDE. WILL CONTINUE TO MONITOR FREQUENTLY.
[2019-03-28 20:00] VITALS: BP 149/68
[2019-03-28] MEDS ORDERED: INSULIN GLARGINE, 100 UNIT/ML CARTRIDGE SQ SCH (22:00)
[2019-03-29] MEDS: BLOOD SUGAR DIAGNOSTIC 1 EACH STRIP IN SCH ×4 (00:17→17:22)
[2019-03-29] MEDS: INSULIN REGULAR, HUMAN 100 UNIT/ML 3 ML VIAL SQ PRN ×4 (00:19→17:29)
[2019-03-29] MEDS: CEFAZOLIN 1 GM in IV D5W 50 ML IV SCH ×3 (01:40→17:33)
[2019-03-29] MEDS: Potassium Chloride 20 MEQ in IV D5W 1,000 ML IV PRN (01:41)
--- NOTE | 2019-03-29 06:03 | NUR ---
RN MS CLOSING NOTES PT REMAINS IN BED, SLEEPING, EASILY AROUSED TO NAME CALL, BREATHING EVEN AND UNLABORED ON ROOM AIR. IN NO APPARENT PAIN OR DISCOMFORT AT THIS TIME, IV ACCESS ON THE R HAND 24G WITH 1/2 NS WITH 20 MEQ @100ML./HR BG OF 249, INSULIN GIVEN. BED IN LOWEST LOCKED POSITION, CALL LIGHT WITHIN REACH AT ALL TIMES. DAUGHTER AT BEDSIDE. WILL ENDORSE TO DAY NURSE FOR ALEX.
--- NOTE | 2019-03-29 07:10 | NUR ---
m/s director physical therapy: initial assessment received pt in bed with eyes open, non-verbal, and unable to comprehend. reality orientation provided prn. vp marketing services and skin at bedside to draw blood, but unable to due to hard stick. noted iv leaking to right hand. no apparent distress noted. will continue to monitor.
[2019-03-29 07:17] LABS: CALCIUM, SERUM 8.5 mg/dL (8.5-10.1); CARBON DIOXIDE 29 mmol/L (21-32); CHLORIDE 106 mmol/L (98-107); CREATININE 0.4 mg/dL (0.6-1.3); GLUCOSE 256 mg/dL (74-106); PHOSPHORUS 2.6 mg/dL (2.5-4.9); POTASSIUM 3.7 mmol/L (3.5-5.1); SODIUM SERUM 142 mmol/L (136-145); UREA NITROGEN, BLOOD 20 mg/dL (7-18)
[2019-03-29] MEDS: LISINOPRIL (20MG) 20 MG TABLET PO SCH (08:24)
[2019-03-29] MEDS: MULTIVIT W/MINERALS 1 TAB TABLET PO SCH (08:25)
[2019-03-29] MEDS: ASCORBIC ACID 500 MG TABLET PO SCH (08:25)
[2019-03-29] MEDS: AMLODIPINE BESYLATE 10 MG TABLET PO SCH (08:25)
[2019-03-29] MEDS: ENSURE ENLIVE 237 ML LIQUID (VANILLA) PO SCH (08:30)
--- NOTE | 2019-03-29 08:30 | NUR ---
m/s waiter/waitress second class: notes pt received glucerna on her tray, but order was ensure. pt is diabetic and per recommendation pt should be on glucerna. order change to glucerna. lab called and informed me that her blood was clotted and someone will draw her lab around 9am.
[2019-03-29 08:38] VITALS: BP 165/78
--- NOTE | 2019-03-29 10:00 | NUR ---
m/s corn shucker: notes attempted to insert new iv, but unsuccessful. will continue to monitor.
[2019-03-29] MEDS: THERAHONEY GEL 1.5 OZ TUBE TP SCH (11:17)
[2019-03-29] MEDS: CLOTRIMAZOLE 1% 15 GM TUBE TP SCH ×2 (11:18→17:22)
[2019-03-29] MEDS: HYDROGEL DRESSING 90 GM TUBE TP SCH (11:21)
--- NOTE | 2019-03-29 11:30 | NUR ---
m/s dairy cattle farm worker: notes e.r. nurse here to inserted new iv to right hand, gauge #22 at this time. will continue to monitor.
[2019-03-29] MEDS: FAMOTIDINE/PF INJ 20 MG/2 ML VIAL IV SCH ×2 (11:42→17:33)
[2019-03-29] MEDS: GLUCERNA SHAKE 237 ML CAN PO SCH ×2 (12:07→17:22)
--- NOTE | 2019-03-29 14:00 | NUR ---
m/s television analyzer: notes daughter visiting at this time and updated plan of care; also all questions and concerns answered.
--- NOTE | 2019-03-29 14:30 | NUR ---
m/s artificial breeding distributor: notes received order to d'c iv fluids of d5w with 20meq potassium. order read back and carried out and acknowledged.
--- NOTE | 2019-03-29 16:15 | NUR ---
Post-op java web application developer Note Patient ambulates with steady gait, in stable condition. Vital signs stable. Monitored appropriately. Personal belongings inventoried, signed belongings form. No skin issues noted. Peripheral IV access established to the left hand 20 gauge removed with catheter tip intact, no bleeding, redness or swelling of site. Provided post-operative education, discharge education and Exitcare provided to both patient and spouse. Emphasized emergency situations and possible complications with both patient and spouse. Verbalized understanding, signed discharge form. All questions answered. ID bands removed. Patient escorted to [facility] via wheelchair with ISIDRO Casiano, discharged home in stable condition with spouse, Shea, via private car. Addendum: 03/29/19 at 1616 by TORSTEN LAMB RN Correction: Documentation for wrong patient for this entry.
[2019-03-29 16:18] VITALS: BP 140/78
--- NOTE | 2019-03-29 16:30 | NUR ---
m/s all round butcher: notes daughter left at this time. pt resting comfortable with no distress noted. will monitor.
--- NOTE | 2019-03-29 17:25 | NUR ---
m/s community outreach director: notes dr. perez (surgeon) here and clarify sacral wound tx order with order to d'c hydrogel. order read back and carried out.
--- NOTE | 2019-03-29 18:30 | NUR ---
m/s roll or tape edge machine operator: notes resting comfortable in bed with no distress noted. needs attended. call light within reach. will continue to monitor.
--- NOTE | 2019-03-29 19:22 | NUR ---
RN MS OPENING NOTES PT IN BED, SLEEPING, EASILY AROUSED TO NAME CALL, BREATHING EVEN AND UNLABORED ON ROOM AIR. IN NO APPARENT PAIN OR DISCOMFORT AT THIS TIME, IV ACCESS ON THE R HAND 22 SL, PATENT AND FLUSHING. BED IN LOWEST LOCKED POSITION, CALL LIGHT WITHIN REACH AT ALL TIMES. WILL CONTINUE TO MONITOR FREQUENTLY.
[2019-03-29 19:45] LABS: BASOPHILS % (AUTO) 0.3 % (0.0-2.0); EOSINOPHILS % (AUTO) 1.3 % (0.0-6.0); HEMATOCRIT 31 % (33-45); HEMOGLOBIN 10.4 g/dL (11.5-14.8); LYMPHOCYTES # (AUTO) 0.5 /CMM (0.8-4.8); LYMPHOCYTES % (AUTO) 5.2 % (20.0-44.0); MEAN CORPUSCULAR HGB CONC 33 g/dl (31.0-36.0); MEAN CORPUSCULAR VOLUME 89 fL (82-100); MONOCYTES # (AUTO) 0.3 /CMM (0.1-1.30); MONOCYTES % (AUTO) 3.7 % (2.0-12.0); NEUTROPHILS # (AUTO) 7.8 /CMM (1.8-8.9); NEUTROPHILS % (AUTO) 89.5 % (43.0-81.0); PLATELET COUNT (AUTO) 118 /CMM (150-450); RED BLOOD CELL COUNT(AUTO) 3.52 MIL/uL (4.0-5.2); WHITE BLOOD COUNT (AUTO) 8.8 K/uL (4.3-11.0)
[2019-03-29 20:00] VITALS: BP 138/77
[2019-03-29 20:12] VITALS: BP 138/77
[2019-03-29] MEDS: INSULIN GLARGINE, 100 UNIT/ML CARTRIDGE SQ SCH (21:55)
[2019-03-30] MEDS: INSULIN REGULAR, HUMAN 100 UNIT/ML 3 ML VIAL SQ PRN ×5 (00:32→23:30)
[2019-03-30] MEDS: BLOOD SUGAR DIAGNOSTIC 1 EACH STRIP IN SCH ×5 (00:33→23:28)
[2019-03-30] MEDS: CEFAZOLIN 1 GM in IV D5W 50 ML IV SCH ×3 (02:02→18:31)
--- NOTE | 2019-03-30 06:09 | NUR ---
RN MS CLOSING NOTES PT REMAINS IN BED, SLEEPING, EASILY AROUSED TO NAME CALL, BREATHING EVEN AND UNLABORED ON ROOM AIR. IN NO APPARENT PAIN OR DISCOMFORT AT THIS TIME, IV ACCESS ON THE R HAND 22G SL PATENT AND FLUSHING. BG OF 172, INSULIN GIVEN. BED IN LOWEST LOCKED POSITION, CALL LIGHT WITHIN REACH AT ALL TIMES. WILL ENDORSE TO DAY NURSE FOR ALEX.
--- NOTE | 2019-03-30 07:00 | NUR ---
MS RN INITIAL NOTES Report received at bedside. Patient received in bed, awake, comfortable. Patient is non-verbal. No signs and symptoms of distress. No SOB/labored breathing noted. Safety measures in place. Will continue to monitor and assess patient
[2019-03-30 08:00] VITALS: BP 140/77
[2019-03-30] MEDS: GLUCERNA SHAKE 237 ML CAN PO SCH ×3 (08:04→17:23)
[2019-03-30] MEDS: AMLODIPINE BESYLATE 10 MG TABLET PO SCH (08:42)
[2019-03-30] MEDS: MULTIVIT W/MINERALS 1 TAB TABLET PO SCH (08:42)
[2019-03-30] MEDS: ASCORBIC ACID 500 MG TABLET PO SCH (08:42)
[2019-03-30] MEDS: FAMOTIDINE/PF INJ 20 MG/2 ML VIAL IV SCH ×2 (08:42→17:19)
[2019-03-30] MEDS: LISINOPRIL (20MG) 20 MG TABLET PO SCH (08:42)
[2019-03-30] MEDS: CLOTRIMAZOLE 1% 15 GM TUBE TP SCH ×2 (08:43→17:24)
[2019-03-30] MEDS: THERAHONEY GEL 1.5 OZ TUBE TP SCH (08:43)
--- NOTE | 2019-03-30 11:55 | NUR ---
MS RN NOTES Ms. Dora NP at bedside
[2019-03-30 16:40] VITALS: BP 145/71
--- NOTE | 2019-03-30 19:10 | NUR ---
MS RN OPENING NOTES Received patient sitting up in bed watching TV, daughter at bedside. Breathing even and unlabored. Not in any distress, on room air. Daughter said she just finished feeding her mother, tolerating well. Safety measures in place; call light within reach. Bed in low, locked position. Patient stable as endorsed by the morning RN. Will continue to monitor accordingly
--- NOTE | 2019-03-30 19:35 | NUR ---
MS RN CLOSING NOTES Patient remained in bed, intermittently sleeping, easily aroused. All due meds given and tolerated. No facial grimacing or moaning noted or reported. No SOB/labored breathing noted or reported. No signs and symptoms of distress noted or reported. Continue antibiotics and hospital stay as planned. Kept patient clean, dry and comfortable. Wound treatment rendered. Bed in lowest position with bed alarm on and call light within reach. Daughter at bedside aware of possible discharge tomorrow. Endorsed to oncoming shift nurse
--- NOTE | 2019-03-30 19:37 | NUR ---
MS LORA CLOSING NOTES Patient remained in bed, intermittently sleeping, easily aroused. All due meds given and tolerated. No facial grimacing or moaning noted or reported. On continuous oxygen therapy @2LPM via nasal cannula with no SOB/labored breathing noted or reported. No signs and symptoms of distress noted or reported. Continue antibiotics and hospital stay as planned. Continue on IVF treatment. Kept patient clean, dry and comfortable. wound treatment rendered. Called RT for breathing treatment. Awaiting for arrival. Bed in lowest position with bed alarm on and call light within reach. Endorsed to oncoming shift nurse Addendum: 03/31/19 at 0832 by ROBBY HINOJOSA RN INCORRECT PATIENT Addendum: 03/31/19 at 0834 by ROBBY HINOJOSA RN INCORRECT PATIENT (DUPLICATE)
[2019-03-30 20:19] VITALS: BP 155/77
[2019-03-30] MEDS: INSULIN GLARGINE, 100 UNIT/ML CARTRIDGE SQ SCH (21:35)
--- NOTE | 2019-03-30 21:35 | NUR ---
RN NOTES BSL checked- 295mg/dL. Lantus 10units given as ordered. Will continue to monitor
--- NOTE | 2019-03-30 23:30 | NUR ---
RN NOTES BSL checked- 276mg/dL. Insulin 9units given per sliding scale. Will continue to monitor
[2019-03-31] MEDS: CEFAZOLIN 1 GM in IV D5W 50 ML IV SCH ×2 (01:41→10:34)
[2019-03-31] MEDS: BLOOD SUGAR DIAGNOSTIC 1 EACH STRIP IN SCH ×2 (05:29→12:23)
[2019-03-31] MEDS: INSULIN REGULAR, HUMAN 100 UNIT/ML 3 ML VIAL SQ PRN ×2 (05:31→12:25)
--- NOTE | 2019-03-31 05:31 | NUR ---
RN NOTES BSL checked- 159mg/dL. Insulin 2units given per sliding scale.
--- NOTE | 2019-03-31 07:27 | NUR ---
MS RN CLOSING NOTES Patient in bed, awake, non- verbal. Breathing even and unlabored. Not in any distress, on room air. IV access intact and patent. No acute changes overnight. Safety measures in place. Endorsed ALEX to AM RN
[2019-03-31 08:00] VITALS: BP 133/61
[2019-03-31] MEDS: GLUCERNA SHAKE 237 ML CAN PO SCH ×2 (08:31→12:23)
[2019-03-31 09:16] VITALS: BP 133/71
[2019-03-31] MEDS: MULTIVIT W/MINERALS 1 TAB TABLET PO SCH (09:16)
[2019-03-31] MEDS: ASCORBIC ACID 500 MG TABLET PO SCH (09:16)
[2019-03-31] MEDS: LISINOPRIL (20MG) 20 MG TABLET PO SCH (09:16)
[2019-03-31] MEDS: AMLODIPINE BESYLATE 10 MG TABLET PO SCH (09:16)
[2019-03-31] MEDS: FAMOTIDINE/PF INJ 20 MG/2 ML VIAL IV SCH (09:16)
[2019-03-31] MEDS: CLOTRIMAZOLE 1% 15 GM TUBE TP SCH (09:17)
[2019-03-31] MEDS: THERAHONEY GEL 1.5 OZ TUBE TP SCH (09:18)
[2019-03-31] MEDS ORDERED: CEPH-570 PO (13:37)
--- NOTE | 2019-03-31 16:55 | NUR ---
MS EVIDENCE TECHNICIAN NOTES Patient is cleared for discharge by provider. Discharge instructions provided to Araceli (Daughter) along with discharge papers - reviewed and signed by daughter. Daughter verbalized understanding. Belongings checked by MOTORBOAT MECHANIC INBOARD/OUTBOARD, reviewed and form signed and confirmed by daughter. All due meds given and tolerated. No facial grimacing or moaning noted or reported. No SOB/labored breathing noted or reported. No signs and symptoms of distress noted or reported. Antibiotics prescription provided to daughter. Kept patient clean, dry and comfortable. Wound treatment rendered. IV access removed: cath tip intact with no bleeding noted. Questions and concerns addressed. Mepilex provided as requested. Approved by counter caser and OFFICE MACHINE REPAIR SHOP SUPERVISOR.
--- NOTE | 2019-03-31 17:05 | NUR ---
MS FIBERGLASS MODEL MAKER NOTES Patient picked up and to be transported by home by [facility]. Report given to EMT. Patient in stable condition. No signs and symptoms of distress noted.
== END 2019-03-31 17:05 | disposition home health service (06) | DRG 622 ==
LOC: ER 21:40 → TELE 23:41 → MED 03-26 09:22
PROVIDERS: ADMIT Student in an Organized Health Care Education/Training Program; ATTEND Hospitalist
PROC: 0JB70ZZ Excision of Back Subcutaneous Tissue and Fascia, Open Approach (ICD-10-PCS; principal; 2019-03-26)
PROC: 0JB90ZZ Excision of Buttock Subcutaneous Tissue and Fascia, Open Approach (ICD-10-PCS; 2019-03-26)
DX: E87.0 Hyperosmolality and hypernatremia (principal); L89.153 Pressure ulcer of sacral region, stage 3; L89.323 Pressure ulcer of left buttock, stage 3; G93.41 Metabolic encephalopathy; N17.0 Acute kidney failure with tubular necrosis; E44.0 Moderate protein-calorie malnutrition; G91.2 (Idiopathic) normal pressure hydrocephalus; N39.0 Urinary tract infection, site not specified; Z68.1 Body mass index [BMI] 19.9 or less, adult; J81.1 Chronic pulmonary edema; E86.0 Dehydration; E87.6 Hypokalemia; E11.65 Type 2 diabetes mellitus with hyperglycemia; E83.52 Hypercalcemia; I10 Essential (primary) hypertension; Z79.84 Long term (current) use of oral hypoglycemic drugs; D64.9 Anemia, unspecified; D69.6 Thrombocytopenia, unspecified; E83.42 Hypomagnesemia; Z98.890 Other specified postprocedural states; Z98.2 Presence of cerebrospinal fluid drainage device; Z74.01 Bed confinement status; B96.20 Unspecified Escherichia coli [E. coli] as the cause of diseases classified elsewhere; E83.39 Other disorders of phosphorus metabolism
CPT/HCPCS: 36415; 71045-TC; 80048-TC; 80061-TC; 80076-TC; 81000-TC; 82962-TC; 83735-TC; 83935-TC; 84100-TC; 84300-TC; 84443-TC; 85025-TC; 87081-TC; 87086-TC; 87186-TC; 92526; 92611-TC; 97112-TC; 97530-TC; A6248; A6402; G0378; J0690; J0692; J1815; J3475; J3480; J3490; J7060; J7070

== ENCOUNTER 2019-04-06 14:57 | Inpatient (IN) | payer MEDICARE, OTHER ==
[~2019-04-06] VITALS: Ht 167.6 cm; Wt 49.9 kg
[~2019-04-06 14:57] MED LIST changes: +AMLO10TA4 PO; +CEPH-570 PO; +LISI40TA4 PO; +METF-440 PO; -METF-441 PO; +MULT-1200 PO; +POTA20TA83 PO
[2019-04-06] MEDS ORDERED: IV NS 0.9% 1,000 ML BAG IV ONE ×2 (15:30→16:30)
[2019-04-06 15:32] LABS: BASOPHILS % (AUTO) 0.2 % (0.0-2.0); HEMATOCRIT 30 % (33-45); HEMOGLOBIN 10.4 g/dL (11.5-14.8); LYMPHOCYTES # (AUTO) 0.1 /CMM (0.8-4.8); LYMPHOCYTES % (AUTO) 1.4 % (20.0-44.0); MEAN CORPUSCULAR HGB CONC 34 g/dl (31.0-36.0); MEAN CORPUSCULAR VOLUME 90 fL (82-100); MONOCYTES # (AUTO) 0.3 /CMM (0.1-1.30); MONOCYTES % (AUTO) 3.2 % (2.0-12.0); NEUTROPHILS # (AUTO) 9.9 /CMM (1.8-8.9); NEUTROPHILS % (AUTO) 95.2 % (43.0-81.0); PLATELET COUNT (AUTO) 142 /CMM (150-450); RED BLOOD CELL COUNT(AUTO) 3.36 MIL/uL (4.0-5.2); WHITE BLOOD COUNT (AUTO) 10.4 K/uL (4.3-11.0)
[2019-04-06] MEDS ORDERED: CEPH-570 PO (15:43)
[2019-04-06 15:58] LABS: ALANINE AMINOTRANSFERASE 29 U/L (12-78); ALBUMIN 2.3 g/dL (3.4-5.0); ALKALINE PHOSPHATASE 128 U/L (46-116); ASPARTATE AMINOTRANSFERASE 21 U/L (15-37); BILIRUBIN,DIRECT 0.2 mg/dL (0.0-0.2); BILIRUBIN,TOTAL 0.6 mg/dL (0.2-1.0); CALCIUM, SERUM 9.3 mg/dL (8.5-10.1); CARBON DIOXIDE 33 mmol/L (21-32); CHLORIDE 102 mmol/L (98-107); CREATININE 0.5 mg/dL (0.6-1.3); POTASSIUM 3.3 mmol/L (3.5-5.1); SODIUM SERUM 142 mmol/L (136-145); TOTAL PROTEIN, SERUM 5.1 g/dL (6.4-8.2); UREA NITROGEN, BLOOD 24 mg/dL (7-18)
[2019-04-06 16:00] LABS: GLUCOSE 388 mg/dL (74-106)
[2019-04-06] MEDS ORDERED: CEFEPIME 1 GM in IV D5W 50 ML IV ONE (16:30)
[2019-04-06 16:35] LABS: APPEARANCE,URINE Clear (CLEAR); BILIRUBIN,URINE Negative (NEGATIVE); BLOOD, URINE Trace-intact Ery/uL (NEGATIVE); COLOR,URINE Yellow (YELLOW); KETONES,URINE Negative (NEGATIVE); LEUKOCYTE ESTERASE ,URINE Negative (NEGATIVE); NITRITE, URINE Negative (NEGATIVE); PH,URINE 6.5 (5.0-8.0); PROTEIN,URINE Trace mg/dl (NEGATIVE); UGLUCOSE 500 MG/DL mg/dL (NEGATIVE); UROBILINOGEN,URINE 0.2 EU/dL (0.2)
--- NOTE | 2019-04-06 17:14 | NUR ---
EPIC PAGED AYAKA BERGER FOR ADMISSION
[2019-04-06 17:19] LABS: BACTERIA,URINE Rare /HPF (None Seen); RBC,URINE 0-3 /HPF (0-2); SQUAMOUS EPITHELIAL CELL,UR Few /HPF (None Seen); WBC,URINE 0-2 /HPF (0-3)
--- NOTE | 2019-04-06 17:46 | NUR ---
BED 201 MEDSURG , AYAKA BERGER
--- NOTE | 2019-04-06 17:58 | NUR ---
REPORT GIVEN TO FREDY PAULINO FOR ALEX
[2019-04-06] MEDS ORDERED: INSULIN REGULAR, HUMAN 100 UNIT/ML 10 ML VIAL ONE (17:59)
[2019-04-06] MEDS ORDERED: INSULIN REGULAR, HUMAN 100 UNIT/ML 10 ML VIAL SQ ONE (18:00)
--- NOTE | 2019-04-06 18:57 | NUR ---
PATIENT TRANSFERRED TO [facility]. NO DISTRESS NOTED.
--- NOTE | 2019-04-06 19:50 | NUR ---
MS RN NOTE: PATIENT RESTING IN BED, NO ACUTE DISTRESS NOTED, DAUGHTER AT BEDSIDE. BREATHING EVEN AND UNLABORED, NO SOB NOTED. IV TO LFA IN PLACE. AWAITING ADMIT ORDERS. NO S/S OF HYPER/HYPOGLYCEMIA NOTED. BED LOCKED AND IN LOWEST POSITION, CALL LIGHT IN REACH. WILL CONTINUE TO MONITOR.
[2019-04-06 20:00] VITALS: BP 164/75
[2019-04-06] MEDS ORDERED: DEXTROSE 50%-WATER 50 ML DISP.SYRIN IV PRN (20:00)
[2019-04-06] MEDS ORDERED: Z GUARD REMEDY 2 OZ OINT TP PRN (20:00)
[2019-04-06] MEDS ORDERED: ACETAMINOPHEN 325 MG TABLET PO PRN (20:00)
[2019-04-06] MEDS ORDERED: ONDANSETRON HCL/PF 4 MG/2 ML VIAL IVP PRN (20:00)
--- NOTE | 2019-04-06 21:00 | NUR ---
MS RN NOTE: RECEIVED ADMIT ORDER FROM AYAKA BERGER NP, PATIENT WILL BLOOD PRESSURE OF 164/75, HR 87, CLARIFIED WITH MD IF PATIENT BLOOD PRESSURE MEDICATIONS CAN BE STARTED TONIGHT SINCE PATIENT HAS NOT RECEIVED TODAY'S DOSE. NORVASC 10MG ORAL AND LISINOPRIL 40MG ORAL ADJUSTED TO START TONIGHT. ORDER NOTED AND CARRIED OUT. WILL CONTINUE TO MONITOR.
[2019-04-06] MEDS: IV NS 0.9% 1,000 ML IV PRN (21:01)
[2019-04-06] MEDS: BLOOD SUGAR DIAGNOSTIC 1 EACH STRIP IN SCH ×2 (21:01→21:35)
[2019-04-06] MEDS: ENOXAPARIN SODIUM 40 MG/0.4 ML DISP.SYRIN SQ SCH (21:03)
[2019-04-06] MEDS: INSULIN REGULAR, HUMAN 100 UNIT/ML 3 ML VIAL SQ PRN (21:34)
--- NOTE | 2019-04-06 21:45 | NUR ---
MS RN NOTE: PATIENT BLOOD SUGAR LEVEL 255MG/DL, PATIENT TO RECEIVE 6 UNITS OF INSULIN PER SLIDING SCALE. NO S/S OF HYPERGLYCEMIA NOTED. WILL CONTINUE TO MONITOR.
[2019-04-06] MEDS: AMLODIPINE BESYLATE 10 MG TABLET PO SCH (21:49)
[2019-04-06] MEDS: LISINOPRIL (20MG) 20 MG TABLET PO SCH (21:49)
[2019-04-07] MEDS: INSULIN REGULAR, HUMAN 100 UNIT/ML 3 ML VIAL SQ PRN ×4 (05:56→21:17)
--- NOTE | 2019-04-07 06:15 | NUR ---
MS RN NOTE: PATIENT RESTING IN BED, NO ACUTE DISTRESS NOTED. BREATHING EVEN AND UNLABORED, NO SOB NOTED. IV TO LFA IN PLACE, INFUSING NS AT 75ML/HR. PATIENT BLOOD SUGAR LEVEL 163MG/DL, TO RECEIVE 3 UNITS OF INSULIN PER SLIDING SCALE. NO S/S OF HYPER/HYPOGLYCEMIA NOTED. BED LOCKED AND IN LOWEST POSITION, CALL LIGHT IN REACH. WILL ENDORSE TO DAY NURSE TO CONTINUE WITH PLAN OF CARE.
[2019-04-07 06:27] LABS: CHOLESTEROL 150 mg/dL (<200); HDL CHOLESTEROL 43 mg/dL (40-60); LDL 88 mg/dL (0-99); THYROID STIMULATING HORMONE 0.242 uIU/mL (0.358-3.74); TRIGLYCERIDES 153 mg/dL (30-150)
[2019-04-07 06:28] LABS: ALANINE AMINOTRANSFERASE 26 U/L (12-78); ALKALINE PHOSPHATASE 105 U/L (46-116); ASPARTATE AMINOTRANSFERASE 30 U/L (15-37); BILIRUBIN,TOTAL 0.6 mg/dL (0.2-1.0); CALCIUM, SERUM 8.8 mg/dL (8.5-10.1); CARBON DIOXIDE 33 mmol/L (21-32); CHLORIDE 108 mmol/L (98-107); CREATININE 0.2 mg/dL (0.6-1.3); GLUCOSE 167 mg/dL (74-106); MAGNESIUM 1.4 mg/dL (1.8-2.4); PHOSPHORUS 1.8 mg/dL (2.5-4.9); SODIUM SERUM 146 mmol/L (136-145); TOTAL PROTEIN, SERUM 4.4 g/dL (6.4-8.2); UREA NITROGEN, BLOOD 17 mg/dL (7-18)
[2019-04-07 06:33] LABS: BASOPHILS % (AUTO) 0.2 % (0.0-2.0); HEMATOCRIT 27 % (33-45); HEMOGLOBIN 9.1 g/dL (11.5-14.8); LYMPHOCYTES # (AUTO) 0.2 /CMM (0.8-4.8); LYMPHOCYTES % (AUTO) 3.3 % (20.0-44.0); MEAN CORPUSCULAR HGB CONC 34 g/dl (31.0-36.0); MEAN CORPUSCULAR VOLUME 89 fL (82-100); MONOCYTES # (AUTO) 0.2 /CMM (0.1-1.30); MONOCYTES % (AUTO) 3.5 % (2.0-12.0); NEUTROPHILS # (AUTO) 6.5 /CMM (1.8-8.9); PLATELET COUNT (AUTO) 125 /CMM (150-450)
[2019-04-07 06:36] LABS: IRON, SERUM 45 ug/dl (50-175); TOTAL IRON BINDING CAPACITY 104 ug/dl (250-450)
[2019-04-07 06:41] LABS: POTASSIUM 2.6 mmol/L (3.5-5.1)
[2019-04-07] MEDS: BLOOD SUGAR DIAGNOSTIC 1 EACH STRIP IN SCH ×4 (07:30→21:12)
[2019-04-07 08:00] VITALS: BP 168/68
--- NOTE | 2019-04-07 08:00 | NUR ---
MS RN NOTE: PATIENT RESTING IN BED, AWAKE,NON VERBAL,NO ACUTE DISTRESS NOTED,BREATHING EVEN AND UNLABORED, NO SOB NOTED. IV TO LFA IN PLACE WITH IV NS AT 75 ML/HR INFUSING WELL.NO S/S OF HYPER/HYPOGLYCEMIA NOTED.SEEN BY JOSEWOUND PIPE LINER WITH TX ORDERS.BED LOCKED AND IN LOWEST POSITION, CALL LIGHT IN REACH. WILL CONTINUE TO MONITOR.
[2019-04-07] MEDS: CEFTRIAXONE 1 G in IV D5W 50 ML IV SCH (08:39)
[2019-04-07] MEDS: LISINOPRIL (20MG) 20 MG TABLET PO SCH (08:40)
[2019-04-07] MEDS: AMLODIPINE BESYLATE 10 MG TABLET PO SCH (08:40)
--- NOTE | 2019-04-07 08:40 | NUR ---
WOUND CARE CONSULT: PT PRESENTS WITH STAGE 3 SACRAL ULCER AND LEFT HEEL WOUND, SOME SCRATCH MARTINEZ TO HIP AREAS, PRESENT ON ADMISSION. RECOMMEND SURGICAL AND DPM CONSULTS. LOW AIRLOSS BED TO BE PLACED (ISOFLEX). ALL SKIN PROTECTION AND WOUND CARE RECOMMENDATIONS DISCUSSED WITH NURSING STAFF. DEFER TO DPM FOR LOWER EXTREMITY. WILL SEE PRN. MARI IN AGREEMENT WITH PLAN OF CARE. Addendum: 04/07/19 at 0844 by JOSE PAIZU Amended: Links added. Addendum: 04/07/19 at [address] MARY GRACE PRICE AND DR HANLEY NOTIFIED OF SURGICAL AND DPM CONSULT REQUESTS.
[2019-04-07] MEDS ORDERED: LISINOPRIL (20MG) 20 MG TABLET PO SCH (09:00)
[2019-04-07] MEDS ORDERED: AMLODIPINE BESYLATE 10 MG TABLET PO SCH (09:00)
[2019-04-07] MEDS ORDERED: HYDROGEL DRESSING 90 GM TUBE TP PRN (09:00)
[2019-04-07] MEDS ORDERED: METFORMIN 500 MG TABLET PO SCH (09:00)
--- NOTE | 2019-04-07 10:00 | NUR ---
PLACED PT ON ISOFLEX BED AND AFLOAT AMMON HEELS WITH PILLOWS.
[2019-04-07] MEDS: HYDROGEL DRESSING 90 GM TUBE TP SCH (10:24)
[2019-04-07] MEDS: CLOTRIMAZOLE 1% 15 GM TUBE TP SCH ×2 (10:25→17:41)
[2019-04-07] MEDS: IV NS 0.9% 1,000 ML IV PRN (10:41)
[2019-04-07] MEDS: Magnesium 1GM/D5W 100ML PREMIX 100 ML IV SCH ×4 (12:13→16:00)
[2019-04-07] MEDS ORDERED: K PHOS NEUTRAL 250 MG TABLET PO ONE (12:30)
[2019-04-07] MEDS ORDERED: POTASSIUM CHLORIDE 20 MEQ TAB.PRT.SR PO ONE ×2 (12:30→18:00)
[2019-04-07 16:00] VITALS: BP 125/69
--- NOTE | 2019-04-07 18:23 | NUR ---
MS RN CLOSING NOTES PATIENT RESTING IN BED, NO ACUTE DISTRESS NOTED. BREATHING EVEN AND UNLABORED, NO SOB NOTED. IV TO LFA INTACT.SEEN BY SELENA GALICIA.NO S/S OF HYPER/HYPOGLYCEMIA NOTED. DTR AT BEDSIDE.BED LOCKED AND IN LOWEST POSITION, CALL LIGHT IN REACH.
--- NOTE | 2019-04-07 19:30 | NUR ---
RECEIVED PATIENT IN BED AWAKE; NONVERBAL. NO ACUTE DISTRESS NOTED. NO SIGNS OF PAIN NOTED. IV SITE PATENT, INTACT; FLUSHED. DAUGHTER AT BEDSIDE. SAFETY REMINDERS GIVEN. ON LOW BED WITH BILATERAL UPPER SIDE RAILS UP. CALL KEY WITHIN EASY REACH. WILL CONTINUE TO MONITOR.
[2019-04-07 20:00] VITALS: BP 137/60
[2019-04-07] MEDS: ENOXAPARIN SODIUM 40 MG/0.4 ML DISP.SYRIN SQ SCH (21:07)
--- NOTE | 2019-04-08 06:00 | NUR ---
PATIENT ASLEEP, EASILY AROUSABLE. RESPIRATIONS EVEN. NO SIGNS OF PAIN NOTED. NO SYMPTOMS OF HYPER/HYPOGLYCEMIA. DUE MEDS GIVEN WITH NO ASE NOTED. NEEDS ATTENDED. KEPT CLEAN, DRY, AND COMFORTABLE. TURNED AND REPOSITIONED Q 2 HOURS. SAFETY PRECAUTIONS AND COMFORT MEASURES IN PLACE. WILL GIVE REPORT TO DAY SHIFT FOR CONTINUITY OF CARE.
[2019-04-08 06:42] LABS: HEMATOCRIT 30 % (33-45); HEMOGLOBIN 10.1 g/dL (11.5-14.8); LYMPHOCYTES # (AUTO) 0.3 /CMM (0.8-4.8); MEAN CORPUSCULAR HGB CONC 34 g/dl (31.0-36.0); MEAN CORPUSCULAR VOLUME 90 fL (82-100); MONOCYTES # (AUTO) 0.3 /CMM (0.1-1.30); MONOCYTES % (AUTO) 3.7 % (2.0-12.0); NEUTROPHILS # (AUTO) 7.9 /CMM (1.8-8.9); NEUTROPHILS % (AUTO) 93.3 % (43.0-81.0); PLATELET COUNT (AUTO) 136 /CMM (150-450); RED BLOOD CELL COUNT(AUTO) 3.31 MIL/uL (4.0-5.2); WHITE BLOOD COUNT (AUTO) 8.5 K/uL (4.3-11.0)
[2019-04-08] MEDS: BLOOD SUGAR DIAGNOSTIC 1 EACH STRIP IN SCH ×4 (06:42→21:30)
[2019-04-08] MEDS: INSULIN REGULAR, HUMAN 100 UNIT/ML 3 ML VIAL SQ PRN ×4 (06:43→21:36)
[2019-04-08 07:06] LABS: CALCIUM, SERUM 8.8 mg/dL (8.5-10.1); CARBON DIOXIDE 36 mmol/L (21-32); CHLORIDE 106 mmol/L (98-107); CREATININE 0.3 mg/dL (0.6-1.3); GLUCOSE 153 mg/dL (74-106); MAGNESIUM 2.1 mg/dL (1.8-2.4); PHOSPHORUS 1.9 mg/dL (2.5-4.9); SODIUM SERUM 147 mmol/L (136-145); UREA NITROGEN, BLOOD 14 mg/dL (7-18)
[2019-04-08 07:10] LABS: POTASSIUM 2.4 mmol/L (3.5-5.1)
--- NOTE | 2019-04-08 07:10 | NUR ---
RECEIVED CALL FROM LAB K 2.4. WILL ENDORSE TO DAY SHIFT NURSE.
[2019-04-08 08:00] VITALS: BP 160/73
--- NOTE | 2019-04-08 08:00 | NUR ---
MS 2 RN AM NOTES RECEIVED PATIENT IN BED AWAKE; NONVERBAL. NO ACUTE DISTRESS NOTED. NO SIGNS OF PAIN NOTED. IV SITE PATENT, INTACT; FLUSHED. TURNED EVERY TWO HRS.WITH PITTING EDEMA ON BUE/BLE.ELEVATED BUE/BLE WITH PILLOWS. SAFETY REMINDERS GIVEN. ON LOW BED WITH BILATERAL UPPER SIDE RAILS UP. CALL KEY WITHIN EASY REACH. WILL CONTINUE TO MONITOR.
[2019-04-08] MEDS: CEFTRIAXONE 1 G in IV D5W 50 ML IV SCH (08:11)
[2019-04-08] MEDS: AMLODIPINE BESYLATE 10 MG TABLET PO SCH (08:12)
[2019-04-08] MEDS: LISINOPRIL (20MG) 20 MG TABLET PO SCH (08:13)
[2019-04-08] MEDS: HYDROGEL DRESSING 90 GM TUBE TP SCH (08:14)
[2019-04-08] MEDS: CLOTRIMAZOLE 1% 15 GM TUBE TP SCH ×2 (08:15→19:02)
[2019-04-08] MEDS ORDERED: NS 0.9% IV SCH (10:30)
[2019-04-08] MEDS ORDERED: D5W IV SCH (10:30)
[2019-04-08] MEDS ORDERED: LIDOCAINE HCL IV SCH (10:30)
[2019-04-08] MEDS ORDERED: POTASSIUM PHOSPHATE IV SCH (10:30)
[2019-04-08] MEDS ORDERED: POTASSIUM CHLORIDE IV SCH (10:30)
[2019-04-08] MEDS: THERAHONEY GEL 1.5 OZ TUBE TP SCH ×2 (10:47→19:03)
[2019-04-08] MEDS: POTASSIUM PHOSPHATE MM 7.5 MMOL in IV D5W 100 ML IV SCH ×4 (11:15→20:23)
[2019-04-08] MEDS: Potassium Chloride 10 MEQ, LIDOCAINE HCL/PF 1% 1 ML in IV D5W 50 ML IV SCH ×4 (12:47→17:46)
[2019-04-08 16:00] VITALS: BP 131/60
--- NOTE | 2019-04-08 19:30 | NUR ---
RECEIVED PATIENT IN BED AWAKE; NONVERBAL. NO ACUTE DISTRESS NOTED. NO SIGNS OF PAIN NOTED. IV SITES PATENT, INTACT; FLUSHED. DAUGHTER AT BEDSIDE. SAFETY REMINDERS GIVEN. ON LOW BED WITH BILATERAL UPPER SIDE RAILS UP. CALL KEY WITHIN EASY REACH. WILL CONTINUE TO MONITOR.
[2019-04-08 20:00] VITALS: BP 152/78
[2019-04-08 20:32] VITALS: BP 152/78
[2019-04-08] MEDS: ENOXAPARIN SODIUM 40 MG/0.4 ML DISP.SYRIN SQ SCH (21:25)
[2019-04-09] MEDS: BLOOD SUGAR DIAGNOSTIC 1 EACH STRIP IN SCH ×4 (06:49→21:19)
[2019-04-09] MEDS: INSULIN REGULAR, HUMAN 100 UNIT/ML 3 ML VIAL SQ PRN ×4 (06:50→21:20)
[2019-04-09 06:51] LABS: BASOPHILS % (AUTO) 0.1 % (0.0-2.0); HEMATOCRIT 30 % (33-45); LYMPHOCYTES # (AUTO) 0.3 /CMM (0.8-4.8); LYMPHOCYTES % (AUTO) 2.9 % (20.0-44.0); MEAN CORPUSCULAR HGB CONC 34 g/dl (31.0-36.0); MEAN CORPUSCULAR VOLUME 90 fL (82-100); MONOCYTES # (AUTO) 0.3 /CMM (0.1-1.30); MONOCYTES % (AUTO) 3.6 % (2.0-12.0); NEUTROPHILS # (AUTO) 8.5 /CMM (1.8-8.9); NEUTROPHILS % (AUTO) 93.4 % (43.0-81.0); PLATELET COUNT (AUTO) 135 /CMM (150-450); RED BLOOD CELL COUNT(AUTO) 3.28 MIL/uL (4.0-5.2); WHITE BLOOD COUNT (AUTO) 9.1 K/uL (4.3-11.0)
[2019-04-09 07:15] LABS: CALCIUM, SERUM 8.5 mg/dL (8.5-10.1); CARBON DIOXIDE 34 mmol/L (21-32); CHLORIDE 104 mmol/L (98-107); CREATININE 0.4 mg/dL (0.6-1.3); GLUCOSE 204 mg/dL (74-106); MAGNESIUM 1.8 mg/dL (1.8-2.4); PHOSPHORUS 2.9 mg/dL (2.5-4.9); SODIUM SERUM 145 mmol/L (136-145); UREA NITROGEN, BLOOD 16 mg/dL (7-18)
[2019-04-09 07:18] LABS: POTASSIUM 2.8 mmol/L (3.5-5.1)
--- NOTE | 2019-04-09 07:19 | NUR ---
RECEIVED REPORT FROM LAB REGARDING K 2.8. ENDORSED TO DAY SHIFT.
--- NOTE | 2019-04-09 07:32 | NUR ---
MS RN OPENING NOTES RECEIVED PT IN BED, AWAKE, NON VERBAL, A/O X1. TOLERATING RA, WITH NO ACUTE RESPIRATORY DISTRESS NOTED. PT HAS NO SIGNS OF PAIN OR ANY DISCOMFORT NOTED. PIVS TO LFA G20 SL AND RAC G24 SL, BOTH FLUSHED WITH NS, INTACT AND OPERATIONAL. PT KEPT COMFORTABLE. PT'S BED IN LOWEST, LOCKED POSITION X2. CALL LIGHT WITHIN REACH. WILL CONTINUE PLAN OF CARE.
[2019-04-09] MEDS: CEFTRIAXONE 1 G in IV D5W 50 ML IV SCH (08:41)
[2019-04-09] MEDS: LISINOPRIL (20MG) 20 MG TABLET PO SCH (08:42)
[2019-04-09] MEDS: AMLODIPINE BESYLATE 10 MG TABLET PO SCH (08:42)
[2019-04-09 09:00] VITALS: BP 141/71
[2019-04-09] MEDS: CLOTRIMAZOLE 1% 15 GM TUBE TP SCH ×2 (09:01→18:04)
[2019-04-09] MEDS: THERAHONEY GEL 1.5 OZ TUBE TP SCH ×2 (09:01→18:04)
[2019-04-09] MEDS: HYDROGEL DRESSING 90 GM TUBE TP SCH (09:02)
[2019-04-09 16:03] VITALS: BP 156/70
[2019-04-09] MEDS: POTASSIUM CL. PREMIX PERIPHER. 50 ML IV SCH ×6 (17:13→23:26)
--- NOTE | 2019-04-09 19:22 | NUR ---
RN OPEN NOTES RECEIVED PATIENT AWAKE IN BED WITH FAMILY AT BEDSIDE. A/OX1, NON-VERBAL BUT TRACKING. NO SIGNS OF DISTRESS OR DISCOMFORT. BREATHING EVEN AND UNLABORED. IV ACCESS IN RAC AND LFA WITH KCL 10MEQ INFUSING, PATENT AND INTACT, NO SIGNS OF REDNESS OR INFILTRATION. BED IN LOW LOCKED POSITION WITH SIDE RAILS X3. CALL LIGHT WITHIN REACH. WILL CONTINUE TO MONITOR.
--- NOTE | 2019-04-09 19:49 | NUR ---
MS RN CLOSING NOTES RECEIVED PT IN BED, AWAKE, NON VERBAL, A/O X1. TOLERATING RA, WITH NO ACUTE RESPIRATORY DISTRESS NOTED. PT HAS NO SIGNS OF PAIN OR ANY DISCOMFORT NOTED. DAUGHTER PRESENT BEDSIDE. PIVS TO LFA G20 SL AND RAC G24 SL, BOTH FLUSHED WITH NS, INTACT AND OPERATIONAL. ON GOING POTASSIUM IV TO LFA, NO REDNESS OR ANY INFILTRATION NOTED. ALL NEEDS AND CARE PROVIDED. PT KEPT COMFORTABLE. PT'S BED IN LOWEST, LOCKED POSITION X3. CALL LIGHT WITHIN REACH. ENDORSED TO NIGHT NURSE FOR ALEX.
[2019-04-09 20:00] VITALS: BP 158/91
[2019-04-09] MEDS: GUAIFENESIN/D-METHORPHAN HB 5 ML UDC PO PRN (21:20)
--- NOTE | 2019-04-09 21:20 | NUR ---
RN NOTES ADMINISTERED ROBITUSSIN DM ORDERED FOR COUGH AT FAMILY REQUEST. PER FAMILY PATIENT HAS HAD SLIGHT COUGH THROUGHOUT DAY. WILL CONTINUE TO MONITOR.
[2019-04-09] MEDS: ENOXAPARIN SODIUM 40 MG/0.4 ML DISP.SYRIN SQ SCH (21:22)
[2019-04-10] MEDS: BLOOD SUGAR DIAGNOSTIC 1 EACH STRIP IN SCH ×4 (06:30→21:32)
[2019-04-10] MEDS: INSULIN REGULAR, HUMAN 100 UNIT/ML 3 ML VIAL SQ PRN ×4 (06:31→21:38)
[2019-04-10 06:33] LABS: HEMATOCRIT 29 % (33-45); HEMOGLOBIN 9.8 g/dL (11.5-14.8); LYMPHOCYTES # (AUTO) 0.2 /CMM (0.8-4.8); LYMPHOCYTES % (AUTO) 2.2 % (20.0-44.0); MEAN CORPUSCULAR HGB CONC 34 g/dl (31.0-36.0); MEAN CORPUSCULAR VOLUME 90 fL (82-100); MONOCYTES # (AUTO) 0.3 /CMM (0.1-1.30); MONOCYTES % (AUTO) 3.5 % (2.0-12.0); NEUTROPHILS # (AUTO) 8.7 /CMM (1.8-8.9); NEUTROPHILS % (AUTO) 94.3 % (43.0-81.0); PLATELET COUNT (AUTO) 131 /CMM (150-450); RED BLOOD CELL COUNT(AUTO) 3.22 MIL/uL (4.0-5.2); WHITE BLOOD COUNT (AUTO) 9.2 K/uL (4.3-11.0)
[2019-04-10 06:42] LABS: THYROID STIMULATING HORMONE 0.292 uIU/mL (0.358-3.74); URIC ACID 3.5 mg/dL (2.6-7.2)
[2019-04-10 06:43] LABS: CALCIUM, SERUM 8.6 mg/dL (8.5-10.1); CARBON DIOXIDE 38 mmol/L (21-32); CHLORIDE 106 mmol/L (98-107); CREATININE 0.4 mg/dL (0.6-1.3); GLUCOSE 171 mg/dL (74-106); MAGNESIUM 1.8 mg/dL (1.8-2.4); POTASSIUM 3.3 mmol/L (3.5-5.1); SODIUM SERUM 146 mmol/L (136-145); UREA NITROGEN, BLOOD 17 mg/dL (7-18)
--- NOTE | 2019-04-10 06:51 | NUR ---
RN CLOSING NOTES PATIENT RESTING IN BED, EASILY AROUSABLE. A/OX1, NON-VERBAL BUT TRACKING. NO SIGNS OF DISTRESS OR DISCOMFORT. BREATHING EVEN AND UNLABORED. IV ACCESS IN RAC AND LFA , PATENT AND INTACT, NO SIGNS OF REDNESS OR INFILTRATION. ALL NEEDS MET. NO SIGNIFICANT CHANGES THROUGH THE NIGHT. PATIENT REPOSITIONED Q2H AND PRN. BED IN LOW LOCKED POSITION WITH SIDE RAILS X3. CALL LIGHT WITHIN REACH. WILL ENDORSE TO AM SHIFT FOR ALEX.
--- NOTE | 2019-04-10 07:22 | NUR ---
MS RN OPENING NOTES RECEIVED PT IN BED, ASLEEP, EASILY AROUSED, NON VERBAL, A/O X1. TOLERATING RA, WITH NO ACUTE RESPIRATORY DISTRESS NOTED. PT HAS NO SIGNS OF PAIN OR ANY DISCOMFORT NOTED. PIVS TO LFA G20 SL AND RAC G24 SL, BOTH FLUSHED WITH NS, INTACT AND OPERATIONAL. PT KEPT COMFORTABLE. HOB ELEVATED. PT'S BED IN LOWEST, LOCKED POSITION X3. CALL LIGHT WITHIN REACH. WILL CONTINUE TO MONITOR.
[2019-04-10 08:00] VITALS: BP 152/82
[2019-04-10] MEDS: CEFTRIAXONE 1 G in IV D5W 50 ML IV SCH (08:42)
[2019-04-10] MEDS: AMLODIPINE BESYLATE 10 MG TABLET PO SCH (08:42)
[2019-04-10] MEDS: LISINOPRIL (20MG) 20 MG TABLET PO SCH (08:43)
[2019-04-10] MEDS: CLOTRIMAZOLE 1% 15 GM TUBE TP SCH ×2 (08:44→17:48)
[2019-04-10] MEDS: THERAHONEY GEL 1.5 OZ TUBE TP SCH ×2 (08:44→17:48)
[2019-04-10] MEDS: HYDROGEL DRESSING 90 GM TUBE TP SCH (09:52)
[2019-04-10] MEDS ORDERED: POTASSIUM CHLORIDE 20 MEQ TAB.PRT.SR PO SCH (11:00)
[2019-04-10] MEDS: POTASSIUM CL. PREMIX PERIPHER. 50 ML IV SCH ×2 (11:13→12:12)
--- NOTE | 2019-04-10 12:40 | NUR ---
RN NOTES RECEIVED A FAX FROM [facility] [place] [facility] REGARDING PT'S CORTISOL LEVEL OF 78.1. DR HUTCHINSON MADE AWARE. AWAITING FOR RESPONSE.
[2019-04-10] MEDS ORDERED: K PHOS NEUTRAL 250 MG TABLET PO ONE (13:00)
--- NOTE | 2019-04-10 14:20 | NUR ---
RN NOTES DR HUTCHINSON NO RESPONSE UP TO THIS MOMENT. HOSPITALIST/TS MADE AWARE WITH ORDERS NOTED. MISCELLANEOUS ORDER WILL ENDORSE TO INCOMING NIGHT NURSE REGARDING IMPORTANT TEST.
[2019-04-10 16:00] VITALS: BP 150/83
[2019-04-10 16:47] LABS: CHLORIDE,URINE RANDOM 80 mmol/L (55-125); POTASSIUM RNDM,URINE 47 mmol/L (25-125); URINE SODIUM, RANDOM 42 mmol/l (40-220)
--- NOTE | 2019-04-10 18:45 | NUR ---
RN NOTES PT HAD EPISODE OF HTN 180/70, HR AT 130S, RR 26, O2 SATURATION AT RA AT 85-88%; HAPPENED WHEN DAUGHTER WAS FEEDING THE PT. PT PLACED ON SUPPLEMENTAL OXYGEN AT 4L VIA NC. STILL SATING AT 85-86%. PT RECHECKED BP 136/88, HR 130S. HOSPITALIST TS MADE AWARE AND ORDERED STAT CXRAY FOR POSSIBLE ASPIRATION. DAUGHTER PRESENT BEDSIDE AND AWARE. WILL ENDORSE TO INCOMING NIGHT NURSE.
--- NOTE | 2019-04-10 19:26 | NUR ---
MS RN CLOSING NOTES PT REMAINS IN BED, AWAKE, A/O X1. DAUGHTER PRESENT BEDSIDE. ON SUPPLEMENTAL OXYGEN 8L VIA SIMPLE MASK, WITH NO ACUTE RESPIRATORY DISTRESS NOTED. PT HAS NO SIGNS OF PAIN OR ANY DISCOMFORT NOTED. PIVS TO LFA G20 SL AND RAC G24 SL, BOTH FLUSHED WITH NS, INTACT AND OPERATIONAL. PT KEPT COMFORTABLE. HOB ELEVATED. PT'S BED IN LOWEST, LOCKED POSITION X3. CALL LIGHT WITHIN REACH. ENDORSED TO SUPERCHARGER MECHANIC NURSE FOR ALEX. SPECIFICALLY FOR DEXAMETHASONE SUPPRESSION TEST TONIGHT AND STAT CXRAY THAT WAS JUST DONE AT 0645.
--- NOTE | 2019-04-10 19:30 | NUR ---
MS RN NOTE: PATIENT RESTING IN BED, NO ACUTE DISTRESS NOTED, DAUGHTER AT BEDSIDE. BREATHING EVEN AND UNLABORED, NO SOB NOTED. IV TO LFA AND RFA IN PLACE. NO S/S OF HYPER/HYPOGLYCEMIA NOTED. BED LOCKED AND IN LOWEST POSITION, CALL LIGHT IN REACH. WILL CONTINUE TO MONITOR.
[2019-04-10] MEDS: GUAIFENESIN/D-METHORPHAN HB 5 ML UDC PO PRN (19:58)
[2019-04-10 20:00] VITALS: BP 153/90
[2019-04-10 21:28] LABS: OSMOLALITY,URINE 401 mOS/kg (340-1090)
--- NOTE | 2019-04-10 21:30 | NUR ---
MS RN NOTE: PATIENT BLOOD SUGAR LEVEL 212MG/DL, PATIENT TO RECEIVE 4 UNITS OF INSULIN PER SLIDING SCALE. NO S/S OF HYPERGLYCEMIA NOTED. WILL CONTINUE TO MONITOR.
[2019-04-10] MEDS: ENOXAPARIN SODIUM 40 MG/0.4 ML DISP.SYRIN SQ SCH (21:33)
[2019-04-10] MEDS ORDERED: DEXAMETHASONE 1 MG TABLET PO ONE (23:00)
[2019-04-11] MEDS: GUAIFENESIN/D-METHORPHAN HB 5 ML UDC PO PRN (03:20)
--- NOTE | 2019-04-11 06:15 | NUR ---
MS RN NOTE: PATIENT RESTING IN BED, NO ACUTE DISTRESS NOTED. BREATHING EVEN AND UNLABORED, NO SOB NOTED. IV TO LFA AND RFA IN PLACE. PATIENT BLOOD SUGAR LEVEL 134MG/DL, PATIENT TO RECEIVE 2 UNITS OF INSULIN PER SLIDING SCALE. NO S/S OF HYPER/HYPOGLYCEMIA NOTED. BED LOCKED AND IN LOWEST POSITION, CALL LIGHT IN REACH. WILL ENDORSE TO DAY NURSE TO CONTINUE WITH PLAN OF CARE.
[2019-04-11] MEDS: INSULIN REGULAR, HUMAN 100 UNIT/ML 3 ML VIAL SQ PRN ×4 (06:44→21:55)
[2019-04-11] MEDS: BLOOD SUGAR DIAGNOSTIC 1 EACH STRIP IN SCH ×4 (06:44→21:54)
--- NOTE | 2019-04-11 07:29 | NUR ---
MS RN OPENING NOTE RECEIVED PT IN BED, SEMI-FOWLERS. PT IS NON-VERBAL, EYES OPEN SPONTANEOUSLY TO VERBAL AND TACTILE STIMULI. NO ACUTE DISTRESS NOTED, BREATHING IS EVEN AND UNLABORED ON 3L NC AT THIS TIME. LEFT AC #20G AND R AC #24G IVS ARE SALINE LOCKED WITHOUT REDNESS OR SWELLING. ASPIRATION PRECAUTIONS MAINTAINED. BED IS LOCKED AND IN LOWEST POSITION, SIDE RAILS UP X3, BED ALARM ON, CALL LIGHT AND POSSESSIONS WITHIN REACH.
[2019-04-11 08:00] VITALS: BP 150/78
[2019-04-11 08:16] LABS: CALCIUM, SERUM 8.9 mg/dL (8.5-10.1); CARBON DIOXIDE 33 mmol/L (21-32); CHLORIDE 105 mmol/L (98-107); CREATININE 0.3 mg/dL (0.6-1.3); GLUCOSE 163 mg/dL (74-106); MAGNESIUM 1.8 mg/dL (1.8-2.4); PHOSPHORUS 2.6 mg/dL (2.5-4.9); POTASSIUM 4.1 mmol/L (3.5-5.1); SODIUM SERUM 143 mmol/L (136-145); UREA NITROGEN, BLOOD 16 mg/dL (7-18)
--- NOTE | 2019-04-11 08:32 | NUR ---
MS RN NOTE BOTH LEFT AC #20G AND R AC #24G IVS NOT FLUSHING AND WITH NO BLOOD RETURN. ATTEMPTED IV INSERTX2 UNSUCCESSFULLY. REQUESTED ANOTHER STAFF MEMBER TO TRY, AWAITING ARRIVAL.
[2019-04-11] MEDS: AMLODIPINE BESYLATE 10 MG TABLET PO SCH (08:35)
[2019-04-11] MEDS: LISINOPRIL (20MG) 20 MG TABLET PO SCH (08:35)
[2019-04-11] MEDS: CEFTRIAXONE 1 G in IV D5W 50 ML IV SCH ×3 (08:35→14:34)
[2019-04-11] MEDS: HYDROGEL DRESSING 90 GM TUBE TP SCH (08:36)
[2019-04-11] MEDS: CLOTRIMAZOLE 1% 15 GM TUBE TP SCH ×2 (08:36→16:54)
[2019-04-11] MEDS: THERAHONEY GEL 1.5 OZ TUBE TP SCH ×2 (08:37→16:54)
[2019-04-11 09:20] VITALS: BP 136/75
--- NOTE | 2019-04-11 09:23 | NUR ---
MS RN NOTE INFORMED PRIMARY HOSPITALIST, REGARDING PT HR 115-140 FOR THE DURATION OF THE MORNING INCLUDING AFTER LISINOPRIL 20MG AND AMLODIPINE 10MG ADMINISTRATION. CURRENT BP: 136/75. AWAITING RESPONSE.
[2019-04-11 09:30] LABS: HEMATOCRIT 39 % (33-45); MEAN CORPUSCULAR VOLUME 93 fL (82-100); PLATELET COUNT (AUTO) 115 /CMM (150-450)
[2019-04-11 09:43] LABS: HEMOGLOBIN 12.4 g/dL (11.5-14.8); RED BLOOD CELL COUNT(AUTO) 4.14 MIL/uL (4.0-5.2); WHITE BLOOD COUNT (AUTO) 2.3 K/uL (4.3-11.0)
[2019-04-11 09:44] LABS: LYMPHOCYTES % (AUTO) 8.2 % (20.0-44.0); MEAN CORPUSCULAR HGB CONC 32 g/dl (31.0-36.0); MONOCYTES % (AUTO) 2.2 % (2.0-12.0); NEUTROPHILS % (AUTO) 88.6 % (43.0-81.0)
[2019-04-11 10:06] LABS: BAND % (MANUAL) 7 % (0.0-5.0); LYMPHOCYTES % (MANUAL) 11 % (16-48); MONOCYTES % (MANUAL) 5 % (0-11.0); NEUTROPHILS % (MANUAL) 76 (42-76); REACTIVE LYMPHOCYTES 1 % (0-0)
--- NOTE | 2019-04-11 10:40 | NUR ---
MS RN NOTE ANOTHER RN ATTEMPTED IV INSERT X3 UNSUCCESSFULLY. WILL INFORM HOSPITALIST.
--- NOTE | 2019-04-11 10:50 | NUR ---
MS RN NOTE PAGED EPIC FOR PRIMARY HOSPITALIST DR.TIM BERGER, AWAITING RESPONSE.
--- NOTE | 2019-04-11 11:00 | NUR ---
MS RN NOTE INFORMED NURSING BONDING AND COMPOSITE FABRICATOR REGARDING PT HAVING NO IV ACCESS AND WAITING RESPONSE FROM PRIMARY HOSPITALIST
--- NOTE | 2019-04-11 12:00 | NUR ---
MS RN NOTE INFORMED CM REGARDING PT DAUGHTER REQUEST TO SPEAK TO CM ABOUT HOME HEALTH AND DME NEEDS UPON DISCHARGE.
--- NOTE | 2019-04-11 12:05 | NUR ---
MS RN NOTE OBTAINED ORDER FOR MIDLINE INSERTION FROM PRIMARY HOSPITALIST DR.TIM BERGER, INFORMED NURSING DRY BOSS.
--- NOTE | 2019-04-11 12:33 | NUR ---
MS RN ALIS MURILLO, PICC LINE NURSE AT THE BEDSIDE FOR MIDLINE INSERTION.
--- NOTE | 2019-04-11 14:16 | NUR ---
MS RN NOTE PER PRIMARY HOSPITALIST DR.TIM AB GOMEZ TO ADMIN ROCEPHIN 1 G NOW. INFORMED DELLA IN PHARMACY.
--- NOTE | 2019-04-11 14:38 | NUR ---
MS RN NOTE SENT RESULTS OF EKG TO PRIMARY HOSPITALIST
--- NOTE | 2019-04-11 15:15 | NUR ---
MS RN NOTE INFORMED DR.TIM BERGER OF PROCALCITONIN LEVEL 7.3. HE WILL REVIEW AND PLACE ORDERS.
--- NOTE | 2019-04-11 15:30 | NUR ---
MS RN NOTE INFORMED PRIMARY HOSPITALIST REGARDING PT LEFT UPPER EXTREMITY SWOLLEN, COLDER.
--- NOTE | 2019-04-11 15:40 | NUR ---
MS RN NOTE TECH AT THE BEDSIDE FOR DOPPLER.
--- NOTE | 2019-04-11 15:48 | NUR ---
MS RN NOTE INFORMED SELENA BUTLER FROM ID REGARDING REQUESTING TO D/C ROCEPHIN AND BEGIN VANCO AND ZOSYN. SHE IS AT THE BEDSIDE TO ROUND ON PATIENT. PER LUKE SHE "WILL TAKE CARE OF IT".
[2019-04-11 16:00] VITALS: BP 137/73
--- NOTE | 2019-04-11 16:00 | NUR ---
MS RN NOTE PER DOPPLER TECH, NO EVIDENCE OF DVT IN THE BILATERAL LOWER EXTREMITIES OR IN THE LEFT UPPER EXTREMITY.
[2019-04-11] MEDS ORDERED: MEROPENEM 500 MG in IV NS 0.9% 50 ML IV SCH (16:30)
--- NOTE | 2019-04-11 16:33 | NUR ---
MS RN NOTE INFORMED PRIMARY HOSPITALIST THAT ID ORDERED MERREM 1G Q12H AND KEPT ROCEPHIN 1G Q24H. ORDERS RECEIVED AND VERIFIED TO D/C ROCEPHIN AND START VANCO PER PHARMACY. INFORMED PHARMACIST OF NEED FOR VANCO DOSING THAT THAT PT IS A HARD STICK WITH ONLY ONE LINE.
[2019-04-11] MEDS: LACTOBACILLUS RHAMNOSUS GG 1 EACH CAP.SPRINK PO SCH (16:52)
[2019-04-11] MEDS: METOPROLOL TARTRATE 25 MG TABLET PO SCH ×3 (16:53→21:00)
[2019-04-11] MEDS ORDERED: MEROPENEM 1 G in IV NS 0.9% 100 ML IV ONE (17:00)
[2019-04-11] MEDS: MEROPENEM 1 G in IV NS 0.9% 100 ML IV SCH (17:58)
[2019-04-11] MEDS ORDERED: FEE PK DOSING 1 MIN EA MC ONE (18:01)
--- NOTE | 2019-04-11 18:22 | NUR ---
MS RN CLOSING NOTE PT IN BED, SEMI-FOWLERS. PT IS NON-VERBAL, EYES OPEN SPONTANEOUSLY TO VERBAL AND TACTILE STIMULI. BREATHING IS EVEN AND UNLABORED ON 4L NC, CONTINUOS PULSE OX IN PLACE WITH CLINICAL ALARMS CHECKED. RIGHT UPPER ARM MIDLINE IS PATENT WITH GOOD BLOOD RETURN, CLEAN, DRY AND INTACT. ADLS AND WOUND CARE PROVIDED ORDERED AND PT ASSISTED TO TURN AND REPOSITION Q2H FOR THE DURATION OF THE SHIFT. ASPIRATION PRECAUTIONS MAINTAINED. BED IS LOCKED AND IN LOWEST POSITION, SIDE RAILS UP X3, BED ALARM ON, CALL LIGHT AND POSSESSIONS WITHIN REACH. WILL ENDORSE TO VEGETABLE FARM WORKER NURSE FOR CONTINUITY OF CARE.
--- NOTE | 2019-04-11 19:25 | NUR ---
RN MS OPENING NOTES RECEIVED PT IN BED, AWAKE ALERT ORIENTEDX1, NON VERBAL, DAUGHTER AT BEDSIDE FEEDING HER. BREATHING EVEN AND UNLABORED ON 2L O2 NC. IN NO APPARENT PAIN OR DISCOMFORT AT THIS TIME. R UA MIDLINE IN PLACE, PATENT AND FLUSHING. BED UP RIGHT IN LOWEST LOCKED POSITION, CALL LIGHT WITHIN REACH AT ALL TIMES. WILL CONTINUE TO MONITOR FREQUENTLY.
[2019-04-11] MEDS ORDERED: VANCOMYCIN 0.75 GM in IV D5W 250 ML IV SCH (20:00)
[2019-04-11] MEDS: ENOXAPARIN SODIUM 40 MG/0.4 ML DISP.SYRIN SQ SCH (20:18)
[2019-04-11 20:38] VITALS: BP 145/39
[2019-04-12] MEDS ORDERED: MEROPENEM 1 G in IV NS 0.9% 100 ML IV SCH (05:00)
[2019-04-12] MEDS: MEROPENEM 1 G in IV NS 0.9% 100 ML IV SCH ×2 (05:53→18:00)
[2019-04-12 06:05] VITALS: BP 134/63
--- NOTE | 2019-04-12 06:30 | NUR ---
RN MS CLOSING NOTES PT REMAINS IN BED, AWAKE ALERT ORIENTEDX1, NON VERBAL. BREATHING EVEN AND UNLABORED ON 2L O2 NC. IN NO APPARENT PAIN OR DISCOMFORT AT THIS TIME. R UA MIDLINE IN PLACE, PATENT AND FLUSHING. BG OF 112, NO COVERAGE. SACRAL WOUND REDRESSED, PT REPOSITIONED Q2HRS.BED UP RIGHT IN LOWEST LOCKED POSITION, CALL LIGHT WITHIN REACH AT ALL TIMES. WILL ENDORSE TO DAY SHIFT FOR ALEX. BEDSIDE COMMODE IN ROOM REQUESTED BY DAUGHTER.
[2019-04-12 06:31] LABS: EOSINOPHILS % (AUTO) 0.1 % (0.0-6.0); HEMATOCRIT 30 % (33-45); HEMOGLOBIN 9.9 g/dL (11.5-14.8); LYMPHOCYTES # (AUTO) 0.2 /CMM (0.8-4.8); LYMPHOCYTES % (AUTO) 3.5 % (20.0-44.0); MEAN CORPUSCULAR HGB CONC 33 g/dl (31.0-36.0); MEAN CORPUSCULAR VOLUME 91 fL (82-100); MONOCYTES # (AUTO) 0.2 /CMM (0.1-1.30); MONOCYTES % (AUTO) 2.5 % (2.0-12.0); NEUTROPHILS # (AUTO) 5.6 /CMM (1.8-8.9); NEUTROPHILS % (AUTO) 93.9 % (43.0-81.0); PLATELET COUNT (AUTO) 106 /CMM (150-450); RED BLOOD CELL COUNT(AUTO) 3.27 MIL/uL (4.0-5.2); WHITE BLOOD COUNT (AUTO) 5.9 K/uL (4.3-11.0)
[2019-04-12 07:05] LABS: CALCIUM, SERUM 9.1 mg/dL (8.5-10.1); CARBON DIOXIDE 38 mmol/L (21-32); CHLORIDE 105 mmol/L (98-107); CREATININE 0.4 mg/dL (0.6-1.3); GLUCOSE 133 mg/dL (74-106); MAGNESIUM 1.8 mg/dL (1.8-2.4); PHOSPHORUS 2.1 mg/dL (2.5-4.9); SODIUM SERUM 147 mmol/L (136-145); UREA NITROGEN, BLOOD 18 mg/dL (7-18)
--- NOTE | 2019-04-12 07:30 | NUR ---
MS/RN NOTE THE PATIENT ALERT AND ORIENTED X1. RESPIRATION REGULAR AND UNLABORED. ON OXYGEN AT 4L/MIN VIA NASAL CANNULA. VILMA MIDLINE PATENT AND SALINE LOCKED. BED LOW AND LOCKED. SIDE RAILS UP X3. CALL LIGHT WITHIN REACH. WILL CONTINUE TO MONITOR.
[2019-04-12 07:51] LABS: BAND % (MANUAL) 24 % (0.0-5.0); LYMPHOCYTES % (MANUAL) 8 % (16-48); MONOCYTES % (MANUAL) 2 % (0-11.0); NEUTROPHILS % (MANUAL) 66 (42-76)
[2019-04-12 08:00] VITALS: BP 138/76
[2019-04-12] MEDS: BLOOD SUGAR DIAGNOSTIC 1 EACH STRIP IN SCH ×4 (08:04→23:10)
[2019-04-12] MEDS: INSULIN REGULAR, HUMAN 100 UNIT/ML 3 ML VIAL SQ PRN ×3 (08:07→23:11)
[2019-04-12] MEDS ORDERED: POTASSIUM CHLORIDE 20 MEQ TAB.PRT.SR PO ONE (09:00)
[2019-04-12] MEDS ORDERED: IV 1/2NS 1000 ML 1,000 ML IV ONE (09:00)
[2019-04-12] MEDS: LISINOPRIL (20MG) 20 MG TABLET PO SCH (09:04)
[2019-04-12] MEDS: LACTOBACILLUS RHAMNOSUS GG 1 EACH CAP.SPRINK PO SCH ×2 (09:04→16:28)
[2019-04-12] MEDS: METOPROLOL TARTRATE 25 MG TABLET PO SCH ×2 (09:05→21:06)
[2019-04-12] MEDS: AMLODIPINE BESYLATE 10 MG TABLET PO SCH (09:05)
[2019-04-12] MEDS: THERAHONEY GEL 1.5 OZ TUBE TP SCH ×2 (09:06→16:29)
[2019-04-12] MEDS: HYDROGEL DRESSING 90 GM TUBE TP SCH (09:06)
[2019-04-12] MEDS: CLOTRIMAZOLE 1% 15 GM TUBE TP SCH ×2 (09:06→16:29)
--- NOTE | 2019-04-12 11:49 | NUR ---
MS/RN NOTE THE PATIENT IS SEEN BY DR AYAKA BERGER AND RECEIVED NEW ORDER OF COLACE 100 MG BID PO. READ BACK, VERIFIED. NOTED AND CARRIED OUT.
--- NOTE | 2019-04-12 12:15 | NUR ---
MS/RN NOTE BLOOD SUGAR 217 AND 4 UNITS REGULAR INSULIN IS GIVEN PER ORDER. WITNESSED BY LORA MARIO.
[2019-04-12 16:00] VITALS: BP 152/65
[2019-04-12] MEDS ORDERED: K PHOS NEUTRAL 250 MG TABLET PO ONE (16:00)
--- NOTE | 2019-04-12 16:16 | NUR ---
MS/RN NOTE RECEIVED ORDER FROM DR AB NEGRETE CHOPPED FINE DIET. NOTED AND CARRIED OUT.
[2019-04-12] MEDS: DOCUSATE SODIUM 100 MG CAPSULE PO SCH (16:28)
--- NOTE | 2019-04-12 18:39 | NUR ---
MS/RN CLOSING NOTE THE PATIENT ALERT AND ORIENTED X1. RECEIVING OXYGEN AT 3L/MIN VIA NASAL CANNULA AND SATURATION IS AT 98%. RESPIRATION REGULAR AND UNLABORED. DENIES SOB. DENIES PAIN. THE PATIENT IS IN NO APPARENT DISTRESS. VILMA MIDLINE PATENT AND 0.45 NS INFUSING AT 75ML/HR AND NO S/S INFILTRATION NOTED. GOOD AND GENTLE SKIN CARE RENDERED. KEPT CLEAN, DRY AND COMFORTABLE. TURNED AND REPOSITIONED Q2HR AND NEEDED. BED LOW AND LOCKED. SIDE RAILS UP X3. CALL LIGHT WITHIN REACH. WILL ENDORSE TO RACING MANAGER.
--- NOTE | 2019-04-12 19:39 | NUR ---
RN MS OPENING NOTES RECEIVED PT IN BED, AWAKE ALERT ORIENTEDX1, NON VERBAL, DAUGHTER AT BEDSIDE. BREATHING EVEN AND UNLABORED ON 3L O2 NC. IN NO APPARENT PAIN OR DISCOMFORT AT THIS TIME. R UA MIDLINE IN PLACE 1/2 NS @75ML/HR . BED UP RIGHT IN LOWEST LOCKED POSITION, CALL LIGHT WITHIN REACH AT ALL TIMES. WILL CONTINUE TO MONITOR FREQUENTLY.
[2019-04-12] MEDS: DOXYCYCLINE 100 MG in IV NS 0.9% 100 ML IV SCH (21:05)
[2019-04-13] MEDS: DOXYCYCLINE 100 MG in IV NS 0.9% 100 ML IV SCH ×3 (05:46→20:07)
[2019-04-13] MEDS: MEROPENEM 1 G in IV NS 0.9% 100 ML IV SCH ×2 (05:48→17:52)
--- NOTE | 2019-04-13 06:04 | NUR ---
RN MS CLOSING NOTES PT REMAINS IN BED, AWAKE ALERT ORIENTEDX1, NON VERBAL. BREATHING EVEN AND UNLABORED ON 2L O2 NC. IN NO APPARENT PAIN OR DISCOMFORT AT THIS TIME. R UA MIDLINE IN PLACE, PATENT AND FLUSHING. SACRAL WOUND REDRESSED, PT REPOSITIONED Q2HRS.BED UP RIGHT IN LOWEST LOCKED POSITION, CALL LIGHT WITHIN REACH AT ALL TIMES. WILL ENDORSE TO DAY SHIFT FOR ALEX.
[2019-04-13] MEDS: INSULIN REGULAR, HUMAN 100 UNIT/ML 3 ML VIAL SQ PRN ×4 (06:51→22:43)
[2019-04-13] MEDS: BLOOD SUGAR DIAGNOSTIC 1 EACH STRIP IN SCH ×4 (06:51→22:41)
[2019-04-13 07:19] LABS: CALCIUM, SERUM 9.2 mg/dL (8.5-10.1); CARBON DIOXIDE 35 mmol/L (21-32); CHLORIDE 106 mmol/L (98-107); CREATININE 0.5 mg/dL (0.6-1.3); GLUCOSE 211 mg/dL (74-106); MAGNESIUM 1.7 mg/dL (1.8-2.4); PHOSPHORUS 2.4 mg/dL (2.5-4.9); POTASSIUM 3.5 mmol/L (3.5-5.1); SODIUM SERUM 147 mmol/L (136-145); UREA NITROGEN, BLOOD 17 mg/dL (7-18)
--- NOTE | 2019-04-13 07:20 | NUR ---
MS/RN OPENING NOTE THE PATIENT IS RECEIVED IN BED. AWAKE. PATIENT ALERT AND ORIENTED X1. PATIENT NON-VERBAL BUT ABLE TO FOLLOW WITH HER EYES. RECEIVING OXYGEN AT 2L/MIN VIA NASAL CANNULA. RESPIRATION REGULAR AND UNLABORED. IN NO APPARENT DISTRESS. VILMA MIDLINE PATENT AND SALINE LOCKED. BED LOW AND LOCKED. SIDE RAILS UP X3. CALL LIGHT WITHIN REACH. WILL CONTINUE TO MONITOR.
[2019-04-13 08:00] VITALS: BP 155/98
[2019-04-13] MEDS: DOCUSATE SODIUM 100 MG CAPSULE PO SCH ×2 (08:00→17:44)
[2019-04-13] MEDS: LACTOBACILLUS RHAMNOSUS GG 1 EACH CAP.SPRINK PO SCH ×2 (08:00→17:44)
[2019-04-13] MEDS: AMLODIPINE BESYLATE 10 MG TABLET PO SCH (08:00)
[2019-04-13] MEDS: METOPROLOL TARTRATE 25 MG TABLET PO SCH ×2 (08:00→20:35)
[2019-04-13] MEDS: LISINOPRIL (20MG) 20 MG TABLET PO SCH (08:01)
[2019-04-13] MEDS: THERAHONEY GEL 1.5 OZ TUBE TP SCH ×2 (08:30→17:44)
[2019-04-13] MEDS: CLOTRIMAZOLE 1% 15 GM TUBE TP SCH ×2 (08:31→17:44)
[2019-04-13] MEDS: HYDROGEL DRESSING 90 GM TUBE TP SCH (08:31)
[2019-04-13 09:48] LABS: BASOPHILS % (AUTO) 0.4 % (0.0-2.0); EOSINOPHILS % (AUTO) 1.9 % (0.0-6.0); HEMATOCRIT 32 % (33-45); HEMOGLOBIN 10.6 g/dL (11.5-14.8); LYMPHOCYTES # (AUTO) 0.1 /CMM (0.8-4.8); LYMPHOCYTES % (AUTO) 1.7 % (20.0-44.0); MEAN CORPUSCULAR HGB CONC 33 g/dl (31.0-36.0); MEAN CORPUSCULAR VOLUME 93 fL (82-100); MONOCYTES # (AUTO) 0.2 /CMM (0.1-1.30); MONOCYTES % (AUTO) 2.5 % (2.0-12.0); NEUTROPHILS # (AUTO) 7.1 /CMM (1.8-8.9); NEUTROPHILS % (AUTO) 93.5 % (43.0-81.0); PLATELET COUNT (AUTO) 121 /CMM (150-450); WHITE BLOOD COUNT (AUTO) 7.6 K/uL (4.3-11.0)
[2019-04-13] MEDS: Magnesium 1GM/D5W 100ML PREMIX 100 ML IV SCH ×2 (12:15→14:18)
[2019-04-13] MEDS ORDERED: K PHOS NEUTRAL 250 MG TABLET PO ONE (13:00)
--- NOTE | 2019-04-13 14:58 | NUR ---
MS/RN NOTE THE PATIENT WAS SEEN BY MIKE AND NEW ORDER OF THERAHONEY TO BE APPLIED ON SACRAL ULCER. NOTED AND CARRIED OUT.
[2019-04-13] MEDS ORDERED: IV D5W 1,000 ML IV PRN (15:56)
[2019-04-13 16:00] VITALS: BP 153/79
--- NOTE | 2019-04-13 18:16 | NUR ---
MS/RN CLOSING NOTE THE PATIENT ALERT AND ORIENTED X1. NON-VERBAL BUT ABLE TO FOLLOW WITH HER EYES. RECEIVING OXYGEN AT 1L/MIN AND SATURATION IS AT 96%. RESPIRATION REGULAR AND UNLABORED. IN NO APPARENT DISTRESS. VILMA MIDLINE PATENT AND IV ANTIBIOTIC INFUSING WITH NO S/S INFILTRATION. BED LOW AND LOCK.CALL LIGHT WITHIN REACH. WILL ENDORSE TO AIRCRAFT LOAD CONTROLLER.
--- NOTE | 2019-04-13 19:22 | NUR ---
RN MS OPENING NOTES RECEIVED PT IN BED, AWAKE ALERT ORIENTEDX1, NON VERBAL, DAUGHTER AT BEDSIDE. BREATHING EVEN AND UNLABORED ON 2L O2 NC. IN NO APPARENT PAIN OR DISCOMFORT AT THIS TIME. R UA MIDLINE IN PLACE. BED UP RIGHT IN LOWEST LOCKED POSITION, CALL LIGHT WITHIN REACH AT ALL TIMES. WILL CONTINUE TO MONITOR FREQUENTLY.
[2019-04-13 20:00] VITALS: BP 149/85
--- NOTE | 2019-04-13 20:36 | NUR ---
METOPROLOL PER PT'S DAUGHTER REQUEST, PM DOSE OF METOPROLOL HELD. PT'S HEART RATE GOING DOWN TO THE 40S DURING THE DAY, PER DAUGHTER.
[2019-04-13 21:42] VITALS: BP 149/85
[2019-04-14] MEDS: MEROPENEM 1 G in IV NS 0.9% 100 ML IV SCH ×2 (05:03→17:22)
[2019-04-14 06:34] LABS: CALCIUM, SERUM 8.7 mg/dL (8.5-10.1); CARBON DIOXIDE 39 mmol/L (21-32); CHLORIDE 108 mmol/L (98-107); CREATININE 0.5 mg/dL (0.6-1.3); GLUCOSE 216 mg/dL (74-106); MAGNESIUM 1.9 mg/dL (1.8-2.4); SODIUM SERUM 152 mmol/L (136-145); UREA NITROGEN, BLOOD 17 mg/dL (7-18)
[2019-04-14] MEDS: BLOOD SUGAR DIAGNOSTIC 1 EACH STRIP IN SCH ×4 (06:37→22:41)
[2019-04-14 06:38] LABS: POTASSIUM 2.2 mmol/L (3.5-5.1)
[2019-04-14] MEDS: INSULIN REGULAR, HUMAN 100 UNIT/ML 3 ML VIAL SQ PRN ×4 (06:39→22:41)
--- NOTE | 2019-04-14 07:21 | NUR ---
RN MS CLOSING NOTES PT REMAINS IN BED, AWAKE ALERT ORIENTEDX1, NON VERBAL. BREATHING EVEN AND UNLABORED ON 1L O2 NC. IN NO APPARENT PAIN OR DISCOMFORT AT THIS TIME. R UA MIDLINE IN PLACE, PATENT AND FLUSHING. SACRAL WOUND REDRESSED, PT REPOSITIONED Q2HRS.BED UP RIGHT IN LOWEST LOCKED POSITION, CALL LIGHT WITHIN REACH AT ALL TIMES. WILL ENDORSE TO DAY SHIFT FOR ALEX.
--- NOTE | 2019-04-14 07:30 | NUR ---
MS RN OPENING NOTE RECEIVED PT IN BED, SEMI-FOWLERS. PT IS NON-VERBAL, EYES OPEN SPONTANEOUSLY TO VERBAL AND TACTILE STIMULI. NO ACUTE DISTRESS NOTED, BREATHING IS EVEN AND UNLABORED ON 3L NC AT THIS TIME. RIGHT UPPER ARM MIDLINE IS PATENT WITH GOOD BLOOD RETURN, CLEAN, DRY AND INTACT. CONTINUOS PULSE OX IN PLACE, ALL CLINICAL ALARMS CHECKED. ASPIRATION PRECAUTIONS MAINTAINED. BED IS LOCKED AND IN LOWEST POSITION, SIDE RAILS UP X3, BED ALARM ON, CALL LIGHT AND POSSESSIONS WITHIN REACH.
[2019-04-14 08:00] VITALS: BP 149/94
[2019-04-14] MEDS: LISINOPRIL (20MG) 20 MG TABLET PO SCH (08:13)
[2019-04-14] MEDS: DOCUSATE SODIUM 100 MG CAPSULE PO SCH ×2 (08:13→17:19)
[2019-04-14] MEDS: LACTOBACILLUS RHAMNOSUS GG 1 EACH CAP.SPRINK PO SCH ×2 (08:13→17:19)
[2019-04-14] MEDS: AMLODIPINE BESYLATE 10 MG TABLET PO SCH (08:13)
[2019-04-14] MEDS: DOXYCYCLINE HYCLATE (100 MG) 100 MG TABLET PO SCH ×2 (08:13→20:07)
[2019-04-14] MEDS: THERAHONEY GEL 1.5 OZ TUBE TP SCH ×2 (08:14→17:19)
[2019-04-14] MEDS: CLOTRIMAZOLE 1% 15 GM TUBE TP SCH ×2 (08:15→17:22)
[2019-04-14] MEDS: HYDROGEL DRESSING 90 GM TUBE TP SCH (08:15)
[2019-04-14] MEDS: METOPROLOL TARTRATE 25 MG TABLET PO SCH (08:52)
--- NOTE | 2019-04-14 08:52 | NUR ---
MS RN NOTE PT DAUGHTER REFUSED METOPROLOL. EDUCATION PROVIDED, PT DAUGHTER STILL REFUSED. WILL INFORM PRIMARY HOSPITALIST OF HER REQUEST TO D/C MED ENTIRELY.
[2019-04-14] MEDS: POTASSIUM CL. PREMIX PERIPHER. 50 ML IV SCH ×4 (11:14→14:23)
--- NOTE | 2019-04-14 11:25 | NUR ---
MS RN NOTE ROUNDED WITH PRIMARY HOSPITALIST JADA RAYGOZA NP. PROVIDED NOTE FROM DAUGHTER PER HER REQUEST.
[2019-04-14] MEDS: SPIRONOLACTONE 25 MG TABLET PO SCH (15:30)
[2019-04-14 16:00] VITALS: BP 149/82
--- NOTE | 2019-04-14 17:18 | NUR ---
MS RN NOTE REQUESTED D5W WITH 40MEW KCL FROM PHARMACY, PER FAMILIA STILL BEING MADE, AWAITING RECEIPT.
--- NOTE | 2019-04-14 18:10 | NUR ---
MS RN CLOSING NOTE PT IN BED, SEMI-FOWLERS. PT IS NON-VERBAL, EYES OPEN SPONTANEOUSLY TO VERBAL AND TACTILE STIMULI. BREATHING IS EVEN AND UNLABORED ON 4L NC, CONTINUOS PULSE OX IN PLACE WITH CLINICAL ALARMS CHECKED. RIGHT UPPER ARM MIDLINE IS PATENT WITH GOOD BLOOD RETURN, CLEAN, DRY AND INTACT. ADLS AND WOUND CARE PROVIDED ORDERED AND PT ASSISTED TO TURN AND REPOSITION Q2H FOR THE DURATION OF THE SHIFT. ASPIRATION PRECAUTIONS MAINTAINED. BED IS LOCKED AND IN LOWEST POSITION, SIDE RAILS UP X3, BED ALARM ON, CALL LIGHT AND POSSESSIONS WITHIN REACH. WILL ENDORSE TO HIDE WORKER NURSE FOR CONTINUITY OF CARE.
--- NOTE | 2019-04-14 18:25 | NUR ---
MS RN NOTE PT BEGAN TO COUGH WHEN BEING FED IN HIGH FOWLERS POSITION, SP02 DECREASED TO 83% ON 2L NC. PROVIDED ORAL SUCTION, SWITCHED PT TO SIMPLE MASK 8L, SP02 INCREASED TO 93%. RT AT THE BEDSIDE FOR ASSESSMENT AND DEEP SUCTION. INFORMED PRIMARY HOSPITALIST JADA RAYGOZA NP AND RECEIVED ORDERS FOR STAT ABG, PER JADA STAUFFER CHEST X-RAY AT THIS TIME. INFORMED RT. DAUGHTER AT THE BEDSIDE.
--- NOTE | 2019-04-14 18:35 | NUR ---
MS RN NOTE RT COMPLETED DEEP SUCTION, PLACED PT BACK ON SIMPLE MASK 12L, SP02 96%, PER RT HE WILL BE BACK SHORTLY TO COMPLETE ABG.
[2019-04-14] MEDS: Potassium Chloride 40 MEQ in IV D5W 1,000 ML IV PRN (18:46)
--- NOTE | 2019-04-14 19:30 | NUR ---
MS RN NOTE: PATIENT RESTING IN BED, NO ACUTE DISTRESS NOTED, DAUGHTER AT BEDSIDE. BREATHING EVEN AND UNLABORED, NO SOB NOTED. MIDLINE TO VILMA IN PLACE, INFUSING D5W WITH 40MEQ KCL AT 100ML/HR. NO S/S OF HYPER/HYPOGLYCEMIA NOTED. BED LOCKED AND IN LOWEST POSITION, CALL LIGHT IN REACH. WILL CONTINUE TO MONITOR.
[2019-04-14 19:45] LABS: ABG BASE EXCESS 16.3 mmol/L; ABG OXYGEN SATURATION 97.1 % (92.0-98.5); ABG PH 7.518 (7.350-7.450); ABG PO2 98.4 mmHg (75.0-100.0); AaDO2 199.6 mmHg; COHb 0.3 % (0.5-1.5); MetHb 0.6 % (0.0-1.5); O2Hb 96.2 % (94.0-97.0); SITE, ABG Right Radial; VENT MODE, BG simnple 02 mask
[2019-04-14 20:00] VITALS: BP 138/97
[2019-04-14] MEDS: GUAIFENESIN/D-METHORPHAN HB 5 ML UDC PO PRN (20:07)
--- NOTE | 2019-04-14 22:30 | NUR ---
MS RN NOTE: PATIENT BLOOD SUGAR LEVEL 265MG/DL, PATIENT TO RECEIVE 6 UNITS OF INSULIN PER SLIDING SCALE. NO S/S OF HYPERGLYCEMIA NOTED. WILL CONTINUE TO MONITOR.
[2019-04-15] MEDS: Potassium Chloride 40 MEQ in IV D5W 1,000 ML IV PRN ×2 (05:12→18:00)
[2019-04-15] MEDS: MEROPENEM 1 G in IV NS 0.9% 100 ML IV SCH ×2 (05:12→17:55)
[2019-04-15 06:36] LABS: BASOPHILS % (AUTO) 0.1 % (0.0-2.0); HEMATOCRIT 25 % (33-45); HEMOGLOBIN 8.2 g/dL (11.5-14.8); LYMPHOCYTES # (AUTO) 0.2 /CMM (0.8-4.8); MEAN CORPUSCULAR HGB CONC 33 g/dl (31.0-36.0); MEAN CORPUSCULAR VOLUME 91 fL (82-100); MONOCYTES # (AUTO) 0.3 /CMM (0.1-1.30); MONOCYTES % (AUTO) 4.4 % (2.0-12.0); NEUTROPHILS # (AUTO) 6.2 /CMM (1.8-8.9); NEUTROPHILS % (AUTO) 92.5 % (43.0-81.0); PLATELET COUNT (AUTO) 103 /CMM (150-450); RED BLOOD CELL COUNT(AUTO) 2.71 MIL/uL (4.0-5.2); WHITE BLOOD COUNT (AUTO) 6.7 K/uL (4.3-11.0)
[2019-04-15] MEDS: BLOOD SUGAR DIAGNOSTIC 1 EACH STRIP IN SCH ×4 (06:36→21:22)
[2019-04-15] MEDS: INSULIN REGULAR, HUMAN 100 UNIT/ML 3 ML VIAL SQ PRN ×4 (06:38→21:26)
--- NOTE | 2019-04-15 06:40 | NUR ---
MS RN NOTE: PATIENT RESTING IN BED, NO ACUTE DISTRESS NOTED. BREATHING EVEN AND UNLABORED, NO SOB NOTED. MIDLINE TO VILMA IN PLACE, INFUSING D5W WITH 40 MEQ KCL AT 100ML/HR. PATIENT BLOOD SUGAR LEVEL 163MG/DL, PATIENT TO RECEIVE 3 UNITS OF INSULIN PER SLIDING SCALE. NO S/S OF HYPER/HYPOGLYCEMIA NOTED. BED LOCKED AND IN LOWEST POSITION, CALL LIGHT IN REACH. WILL ENDORSE TO DAY NURSE TO CONTINUE WITH PLAN OF CARE.
[2019-04-15 06:47] LABS: CHLORIDE 109 mmol/L (98-107); CREATININE 0.4 mg/dL (0.6-1.3); GLUCOSE 207 mg/dL (74-106); POTASSIUM 3.3 mmol/L (3.5-5.1); SODIUM SERUM 151 mmol/L (136-145); UREA NITROGEN, BLOOD 16 mg/dL (7-18)
[2019-04-15 06:58] LABS: CARBON DIOXIDE 42 mmol/L (21-32)
--- NOTE | 2019-04-15 07:42 | NUR ---
RN OPENING NOTES PT AWAKE AND RESTING IN BED. PT NONVERBAL. NO APPARENT S/S OF PAIN, DISTRESS OR SOB AT THIS TIME. PT HAS RIGHT UPPER ARM MIDLINE INTACT AND RUNNING D5W WITH 40 MEQ KCL AT 100ML/HR. PT TOLERATING FLUIDS WELL. PT ON CONTINUOUS PULSE OX. SAFETY PRECAUTIONS IN PLACE, BED IN LOWEST LOCKED POSITION, X3 SIDE RAILS UP AND CALL LIGHT WITHIN REACH. WILL CONTINUE TO MONITOR.
[2019-04-15 08:00] VITALS: BP 169/84
[2019-04-15] MEDS: DOXYCYCLINE HYCLATE (100 MG) 100 MG TABLET PO SCH ×2 (08:19→21:22)
[2019-04-15] MEDS: LACTOBACILLUS RHAMNOSUS GG 1 EACH CAP.SPRINK PO SCH ×2 (08:19→17:53)
[2019-04-15] MEDS: DOCUSATE SODIUM 100 MG CAPSULE PO SCH ×2 (08:19→17:53)
[2019-04-15] MEDS: AMLODIPINE BESYLATE 10 MG TABLET PO SCH (08:20)
[2019-04-15] MEDS: LISINOPRIL (20MG) 20 MG TABLET PO SCH (08:20)
[2019-04-15] MEDS: SPIRONOLACTONE 25 MG TABLET PO SCH (08:20)
[2019-04-15] MEDS: THERAHONEY GEL 1.5 OZ TUBE TP SCH ×2 (08:29→17:56)
[2019-04-15 08:30] LABS: BAND % (MANUAL) 2 % (0.0-5.0); LYMPHOCYTES % (MANUAL) 4 % (16-48); MONOCYTES % (MANUAL) 5 % (0-11.0); NEUTROPHILS % (MANUAL) 89 (42-76)
--- NOTE | 2019-04-15 09:19 | NUR ---
RN NOTES CALLED PHARMACY PER LOTRIMIN CREAM AND HYDROGEL. WILL BRING.
[2019-04-15] MEDS: HYDROGEL DRESSING 90 GM TUBE TP SCH (09:53)
[2019-04-15] MEDS: CLOTRIMAZOLE 1% 15 GM TUBE TP SCH (09:53)
[2019-04-15 10:15] LABS: ABG BASE EXCESS 18.5 mmol/L; ABG OXYGEN SATURATION 98.3 % (92.0-98.5); ABG PCO2 51.7 mmHg (35.0-45.0); ABG PH 7.538 (7.350-7.450); ABG PO2 155.1 mmHg (75.0-100.0); AaDO2 41.6 mmHg; COHb 0.3 % (0.5-1.5); MetHb 0.9 % (0.0-1.5); O2Hb 97.1 % (94.0-97.0); SITE, ABG Right Radial
[2019-04-15] MEDS: POTASSIUM CHLORIDE 20 MEQ POWDER PACKET PO SCH (13:40)
[2019-04-15] MEDS: GUAIFENESIN/D-METHORPHAN HB 5 ML UDC PO PRN ×2 (13:47→21:23)
[2019-04-15 16:00] VITALS: BP 160/72
--- NOTE | 2019-04-15 19:24 | NUR ---
RN NOTES PER MATTRESS INSPECTOR GRAYSON, ELENA LOTRIMIN AND HYDROGEL
--- NOTE | 2019-04-15 19:24 | NUR ---
RN CLOSING NOTES PT AWAKE AND RESTING IN BED. PT NONVERBAL. DAUGHTER AT BEDSIDE. NO APPARENT S/S OF PAIN, DISTRESS OR SOB AT THIS TIME. PT HAS RIGHT UPPER ARM MIDLINE INTACT AND RUNNING D5W WITH 40 MEQ KCL AT 100ML/HR. PT TOLERATING FLUIDS WELL. PT ON CONTINUOUS PULSE OX. SAFETY PRECAUTIONS IN PLACE, BED IN LOWEST LOCKED POSITION, X3 SIDE RAILS UP AND CALL LIGHT WITHIN REACH. WILL ENDORSE TO ENGINEER TECHNICAL STAFF NURSE FOR CONTINUITY OF CARE.
--- NOTE | 2019-04-15 19:36 | NUR ---
MS RN RECEIVE PT IN BED A/O X1 NON VERBAL DAUGHTER AT BEDSIDE STABLE, NO S/S OF DISTRESS, SAFETY MEASURES IN PLACE. WILL CONTINUE TO MONITOR
[2019-04-15 20:00] VITALS: BP 145/74
[2019-04-16] MEDS: MEROPENEM 1 G in IV NS 0.9% 100 ML IV SCH ×2 (05:03→17:53)
[2019-04-16] MEDS: Potassium Chloride 40 MEQ in IV D5W 1,000 ML IV PRN (05:03)
--- NOTE | 2019-04-16 06:03 | NUR ---
MS RN SLEPT WELL THROUGHOUT THE NIGHT. NO SIGNIFICANT CHANGES THROUGHOUT THE SHIFT. RESPIRATIONS EVEN AND UNLABORED. 02 SAT AT 98%. KEPT CLEAN AND DRY AND COMFORTABLE. NEEDS ATTENDED AND ANTICIPATED, AM CARE RENDERED, OFFLOAD HEELS AND ELBOWS. ASSISTED REPOSITION EVERY 2 HOURS. SAFETY MEASURES AT ALL TIMES. ENDORSE TO THE NEXT SHIFT.
[2019-04-16] MEDS: BLOOD SUGAR DIAGNOSTIC 1 EACH STRIP IN SCH ×4 (06:36→21:51)
[2019-04-16] MEDS: INSULIN REGULAR, HUMAN 100 UNIT/ML 3 ML VIAL SQ PRN ×4 (06:38→21:53)
--- NOTE | 2019-04-16 07:44 | NUR ---
RN OPENING NOTES PT SLEEPING IN BED. PT NONVERBAL. NO APPARENT S/S OF PAIN, DISTRESS OR SOB AT THIS TIME. PT 02 98% ON 2L O2 VIA NASAL CANNULA. PT HAS RIGHT UPPER ARM MIDLINE INTACT AND RUNNING D5 WITH 40 MEQ OF KCL@ 100 ML/HR. SAFETY PRECAUTIONS IN PLACE, BED IN LOWEST LOCKED POSITION, X2 SIDE RAILS UP AND CALL LIGHT WITHIN REACH. WILL CONTINUE TO MONITOR.
[2019-04-16 08:00] VITALS: BP 166/79
[2019-04-16 08:00] LABS: CALCIUM, SERUM 9.2 mg/dL (8.5-10.1); CARBON DIOXIDE 39 mmol/L (21-32); CHLORIDE 103 mmol/L (98-107); CREATININE 0.6 mg/dL (0.6-1.3); GLUCOSE 271 mg/dL (74-106); POTASSIUM 3.8 mmol/L (3.5-5.1); SODIUM SERUM 144 mmol/L (136-145); UREA NITROGEN, BLOOD 16 mg/dL (7-18)
[2019-04-16 08:03] LABS: EOSINOPHILS % (AUTO) 0.1 % (0.0-6.0); HEMATOCRIT 30 % (33-45); HEMOGLOBIN 9.8 g/dL (11.5-14.8); LYMPHOCYTES # (AUTO) 0.2 /CMM (0.8-4.8); LYMPHOCYTES % (AUTO) 4.5 % (20.0-44.0); MEAN CORPUSCULAR HGB CONC 33 g/dl (31.0-36.0); MEAN CORPUSCULAR VOLUME 91 fL (82-100); MONOCYTES # (AUTO) 0.3 /CMM (0.1-1.30); NEUTROPHILS # (AUTO) 3.9 /CMM (1.8-8.9); NEUTROPHILS % (AUTO) 88.4 % (43.0-81.0); PLATELET COUNT (AUTO) 120 /CMM (150-450); RED BLOOD CELL COUNT(AUTO) 3.29 MIL/uL (4.0-5.2); WHITE BLOOD COUNT (AUTO) 4.4 K/uL (4.3-11.0)
[2019-04-16] MEDS: THERAHONEY GEL 1.5 OZ TUBE TP SCH ×2 (09:12→17:53)
[2019-04-16] MEDS: DOCUSATE SODIUM 100 MG CAPSULE PO SCH ×2 (09:13→16:37)
[2019-04-16] MEDS: LACTOBACILLUS RHAMNOSUS GG 1 EACH CAP.SPRINK PO SCH ×2 (09:13→17:53)
[2019-04-16] MEDS: DOXYCYCLINE HYCLATE (100 MG) 100 MG TABLET PO SCH ×2 (09:13→20:46)
[2019-04-16] MEDS: POTASSIUM CHLORIDE 20 MEQ POWDER PACKET PO SCH (09:13)
[2019-04-16] MEDS: AMLODIPINE BESYLATE 10 MG TABLET PO SCH (09:14)
[2019-04-16] MEDS: LISINOPRIL (20MG) 20 MG TABLET PO SCH (09:14)
[2019-04-16] MEDS: SPIRONOLACTONE 25 MG TABLET PO SCH (09:14)
[2019-04-16 09:36] LABS: BAND % (MANUAL) 5 % (0.0-5.0); LYMPHOCYTES % (MANUAL) 4 % (16-48); MONOCYTES % (MANUAL) 6 % (0-11.0); NEUTROPHILS % (MANUAL) 85 (42-76)
[2019-04-16] MEDS: GUAIFENESIN/D-METHORPHAN HB 5 ML UDC PO PRN ×3 (11:28→20:46)
[2019-04-16] MEDS ORDERED: IV D5W 1,000 ML IV PRN (15:30)
[2019-04-16 16:00] VITALS: BP 141/82
--- NOTE | 2019-04-16 19:21 | NUR ---
MS RN RECEIVE PT IN BED A/O X 1 WATCHING TV STABLE, NO S/S OF DISTRESS, SAFETY MEASURES IN PLACE. WILL CONTINUE TO MONITOR Addendum: 04/16/19 at 1922 by JOLYNN KWAN RN PT NON VERBAL RESPONSIVE TO VERBAL STIMULATION OPENS EYES TO NAME
[2019-04-16 20:00] VITALS: BP_SYST 150; BP_DIAS 90; BP_DIAS 91
[2019-04-17] MEDS: MEROPENEM 1 G in IV NS 0.9% 100 ML IV SCH (05:31)
--- NOTE | 2019-04-17 06:15 | NUR ---
MS RN AM CARE RENDERED. 02 SAT 100%, NON VERBAL OPENS EYES TO TACTILE STIMULATION NAME, REPOSITION Q2H. NO SIGNIFICANT CHANGES THROUGHOUT THE SHIFT. RESPIRATIONS EVEN AND UNLABORED. KEPT CLEAN AND DRY AND COMFORTABLE. NEEDS ATTENDED AND ANTICIPATED, OFFLOAD HEELS AND ELBOWS. SAFETY MEASURES AT ALL TIMES. ENDORSE TO THE NEXT SHIFT. SLEPT WELL DURING THE NIGHT.
[2019-04-17] MEDS: BLOOD SUGAR DIAGNOSTIC 1 EACH STRIP IN SCH ×2 (06:35→12:20)
[2019-04-17 06:38] LABS: CALCIUM, SERUM 8.9 mg/dL (8.5-10.1); CARBON DIOXIDE 35 mmol/L (21-32); CHLORIDE 98 mmol/L (98-107); CREATININE 0.4 mg/dL (0.6-1.3); GLUCOSE 207 mg/dL (74-106); POTASSIUM 3.1 mmol/L (3.5-5.1); SODIUM SERUM 138 mmol/L (136-145); UREA NITROGEN, BLOOD 14 mg/dL (7-18)
[2019-04-17] MEDS: INSULIN REGULAR, HUMAN 100 UNIT/ML 3 ML VIAL SQ PRN ×2 (06:38→12:21)
[2019-04-17 08:00] VITALS: BP 145/83
[2019-04-17 08:51] VITALS: BP 145/83
[2019-04-17] MEDS: LACTOBACILLUS RHAMNOSUS GG 1 EACH CAP.SPRINK PO SCH (08:53)
[2019-04-17] MEDS: GUAIFENESIN/D-METHORPHAN HB 5 ML UDC PO PRN ×2 (08:53→13:20)
[2019-04-17] MEDS: AMLODIPINE BESYLATE 10 MG TABLET PO SCH (08:54)
[2019-04-17] MEDS: POTASSIUM CHLORIDE 20 MEQ POWDER PACKET PO SCH (08:54)
[2019-04-17 08:55] VITALS: BP 145/83
[2019-04-17] MEDS: DOXYCYCLINE HYCLATE (100 MG) 100 MG TABLET PO SCH (08:55)
[2019-04-17] MEDS: SPIRONOLACTONE 25 MG TABLET PO SCH (08:55)
[2019-04-17] MEDS: LISINOPRIL (20MG) 20 MG TABLET PO SCH (08:55)
[2019-04-17] MEDS: DOCUSATE SODIUM 100 MG CAPSULE PO SCH (08:56)
[2019-04-17] MEDS: THERAHONEY GEL 1.5 OZ TUBE TP SCH (09:05)
[2019-04-17] MEDS ORDERED: POTASSIUM CHLORIDE 20 MEQ POWDER PACKET PO ONE (10:30)
[2019-04-17] MEDS ORDERED: METF-441 PO (10:43)
[2019-04-17] MEDS ORDERED: POTA20TA83 PO (10:43)
--- NOTE | 2019-04-17 13:20 | NUR ---
MS/RN NOTE DISCHARGE EDUCATION PROVIDED TO THE CAREGIVER (DAUGHTER) DUE TO PATIENT BEING ALERT AND ORIENTED X1. THE CAREGIVER VERBALIZED UNDERSTANDING. PRESCRIPTION GIVEN TO THE CAREGIVER AND THE COPY IS SAVED IN THE CHARGE. THE PATIENT WILL BE PICKED UP VIA AMBULANCE.
--- NOTE | 2019-04-17 14:10 | NUR ---
MS/RN NOTE RIGHT UPPER ARM MIDLINE IS REMOVED PER ORDER. NO MISSING PARTS NOTED. NO BLEEDING OR S/S INFECTION AT THE SITE.
--- NOTE | 2019-04-17 15:00 | NUR ---
MS/RN NOTE THE PATIENT ALERT AND ORIENTED X1. IN ROOM AIR AND SATURATION IS AT 93%. RESPIRATION REGULAR AND UNLABORED. THE PATIENT IN NO APPARENT DISTRESS. THE PATIENT IS PICKED UP BY [facility] GOING HOME. DAUGHTER WAITING FOR THE PATIENT AT HOME. PATIENT LEFT THE HOSPITAL IN STABLE CONDITION.
== END 2019-04-17 15:00 | disposition home or self-care (01) | DRG 166 ==
LOC: ER 14:57 → MEDSG2 17:53
PROVIDERS: ADMIT Nurse Practitioner Acute Care; ATTEND Nurse Practitioner Acute Care
PROC: 05H533Z Insertion of Infusion Device into Right Subclavian Vein, Percutaneous Approach (ICD-10-PCS; 2019-04-11)
PROC: B546ZZA Ultrasonography of Right Subclavian Vein, Guidance (ICD-10-PCS; 2019-04-11)
PROC: 0JB70ZZ Excision of Back Subcutaneous Tissue and Fascia, Open Approach (ICD-10-PCS; principal; 2019-04-13)
DX: J69.0 Pneumonitis due to inhalation of food and vomit (principal); E43 Unspecified severe protein-calorie malnutrition; L89.153 Pressure ulcer of sacral region, stage 3; L89.154 Pressure ulcer of sacral region, stage 4; L89.323 Pressure ulcer of left buttock, stage 3; N17.0 Acute kidney failure with tubular necrosis; G93.41 Metabolic encephalopathy; J96.01 Acute respiratory failure with hypoxia; E87.3 Alkalosis; D68.59 Other primary thrombophilia; G91.2 (Idiopathic) normal pressure hydrocephalus; Z68.1 Body mass index [BMI] 19.9 or less, adult; E87.0 Hyperosmolality and hypernatremia; R47.01 Aphasia; E24.9 Cushing's syndrome, unspecified; E87.4 Mixed disorder of acid-base balance; G81.94 Hemiplegia, unspecified affecting left nondominant side; E11.65 Type 2 diabetes mellitus with hyperglycemia; D69.6 Thrombocytopenia, unspecified; E87.6 Hypokalemia; D63.8 Anemia in other chronic diseases classified elsewhere; I10 Essential (primary) hypertension; Z79.84 Long term (current) use of oral hypoglycemic drugs; Z79.899 Other long term (current) drug therapy; E83.42 Hypomagnesemia; F03.90 Unspecified dementia, unspecified severity, without behavioral disturbance, psychotic disturbance, mood disturbance, and anxiety; Z98.2 Presence of cerebrospinal fluid drainage device; Z87.440 Personal history of urinary (tract) infections; Z74.01 Bed confinement status; I25.10 Atherosclerotic heart disease of native coronary artery without angina pectoris; Z74.09 Other reduced mobility; S90.822A Blister (nonthermal), left foot, initial encounter; E86.1 Hypovolemia; E83.39 Other disorders of phosphorus metabolism
CPT/HCPCS: 36415; 36569; 36600; 71045-TC; 80048-TC; 80053-TC; 80061-TC; 80076-TC; 81000-TC; 82024; 82088; 82436-TC; 82533; 82803-TC; 82962-TC; 83540-TC; 83605-TC; 83735-TC; 83880; 83935-TC; 84100-TC; 84132-TC; 84133-TC; 84244; 84300-TC; 84443-TC; 84484-TC; 84550-TC; 84702-TC; 85025-TC; 85730-TC; 87040-TC; 87081-TC; 87086-TC; 92526; 92611-TC; 93970-TC; 97110-TC; 97112-TC; 97530-TC; A4216; A6248; A6403; G0378; J0692; J0696; J1650; J1815; J2185; J3370; J3475; J3480; J3490; J7030; J7060; J7070; J8540

== ENCOUNTER 2019-05-17 16:10 | Inpatient (IN) | payer MEDICARE ==
[~2019-05-17] VITALS: Ht 170.2 cm; Wt 60.8 kg
[~2019-05-17 16:10] MED LIST changes: +METF-441 PO
--- NOTE | 2019-05-17 16:28 | NUR ---
THIERNO BRASHER 87 From Home "Daughter called worried about the fact she may be dehydrated and have swelling on her hand" BS 291, TO ER BED 10, NON-VERBAL, HOOKED TO PROJECT INTERNSHIP, TACHY AT 142BPM, HYPERVENTILATING NOTED, CHANGED TO GOWN, PROVIDED W WARM BLANKET, DR EDDY AT BEDSIDE.
[2019-05-17] MEDS ORDERED: ONDANSETRON HCL/PF 4 MG/2 ML VIAL ONE (16:58)
[2019-05-17 17:00] LABS: BASOPHILS % (AUTO) 0.1 % (0.0-2.0); EOSINOPHILS % (AUTO) 0.1 % (0.0-6.0); HEMATOCRIT 29 % (33-45); HEMOGLOBIN 9.4 g/dL (11.5-14.8); LYMPHOCYTES # (AUTO) 0.4 /CMM (0.8-4.8); LYMPHOCYTES % (AUTO) 3.8 % (20.0-44.0); MEAN CORPUSCULAR HGB CONC 33 g/dl (31.0-36.0); MEAN CORPUSCULAR VOLUME 94 fL (82-100); MONOCYTES # (AUTO) 0.2 /CMM (0.1-1.30); MONOCYTES % (AUTO) 2.5 % (2.0-12.0); NEUTROPHILS # (AUTO) 9.1 /CMM (1.8-8.9); NEUTROPHILS % (AUTO) 93.5 % (43.0-81.0); PLATELET COUNT (AUTO) 68 /CMM (150-450); RED BLOOD CELL COUNT(AUTO) 3.04 MIL/uL (4.0-5.2)
[2019-05-17] MEDS ORDERED: ONDANSETRON HCL/PF 4 MG/2 ML VIAL IVP ONE (17:00)
[2019-05-17] MEDS ORDERED: IV NS 0.9% 1,000 ML BAG IV ONE ×2 (17:00→17:30)
[2019-05-17 17:07] LABS: CALCIUM, SERUM 8.3 mg/dL (8.5-10.1); CARBON DIOXIDE 30 mmol/L (21-32); CHLORIDE 99 mmol/L (98-107); CREATININE 0.8 mg/dL (0.6-1.3); GLUCOSE 233 mg/dL (74-106); POTASSIUM 5.2 mmol/L (3.5-5.1); SODIUM SERUM 136 mmol/L (136-145); UREA NITROGEN, BLOOD 25 mg/dL (7-18)
--- NOTE | 2019-05-17 17:11 | NUR ---
PATIENT'S DAUGHTER REFUSED MEDICATION FOR PATIENT
[2019-05-17 17:13] LABS: ALANINE AMINOTRANSFERASE 896 U/L (12-78); ALKALINE PHOSPHATASE 499 U/L (46-116); ASPARTATE AMINOTRANSFERASE 236 U/L (15-37); BILIRUBIN,DIRECT 0.4 mg/dL (0.0-0.2); BILIRUBIN,TOTAL 0.9 mg/dL (0.2-1.0); LIPASE 308 U/L (73-393); TOTAL PROTEIN, SERUM 4.6 g/dL (6.4-8.2)
--- NOTE | 2019-05-17 17:15 | NUR ---
ERADICATOR AT BEDSIDE
[2019-05-17] MEDS ORDERED: IV NS 0.9% 1,000 ML IV PRN (17:16)
[2019-05-17] MEDS ORDERED: PIPERACILLIN /TAZOBACTAM 3.375 G in IV D5W 50 ML IV ONE (17:30)
[2019-05-17] MEDS ORDERED: PIPERACILLIN /TAZOBACTAM 3.375 G VIAL IV ONE (17:31)
[2019-05-17 17:40] LABS: LYMPHOCYTES % (MANUAL) 2 % (16-48); NEUTROPHILS % (MANUAL) 95 (42-76); WHITE BLOOD COUNT (AUTO) 10.3 K/uL (4.3-11.0)
[2019-05-17 17:41] LABS: MONOCYTES % (MANUAL) 3 % (0-11.0)
--- NOTE | 2019-05-17 17:42 | NUR ---
US TECH AT BEDSIDE
[2019-05-17] MEDS ORDERED: INSU100V7 SQ (17:55)
[2019-05-17 18:02] LABS: APPEARANCE,URINE Cloudy (CLEAR); BILIRUBIN,URINE SMALL (NEGATIVE); BLOOD, URINE Small Ery/uL (NEGATIVE); COLOR,URINE Yellow (YELLOW); KETONES,URINE 15 (NEGATIVE); LEUKOCYTE ESTERASE ,URINE Negative (NEGATIVE); NITRITE, URINE Negative (NEGATIVE); PROTEIN,URINE 100 mg/dl (NEGATIVE); UGLUCOSE Negative (NEGATIVE)
[2019-05-17 18:42] LABS: BACTERIA,URINE Few /HPF (None Seen); RBC,URINE 0-2 /HPF (0-2); SQUAMOUS EPITHELIAL CELL,UR Few /HPF (None Seen); WBC,URINE 0-2 /HPF (0-3); YEAST,URINE Many /HPF (None Seen)
--- NOTE | 2019-05-17 19:01 | NUR ---
[employer] - paged
[2019-05-17] MEDS ORDERED: ACETAMINOPHEN 325 MG TABLET PO PRN (19:30)
[2019-05-17] MEDS ORDERED: MAGNESIUM HYDROXIDE 30 ML UDC PO PRN (19:30)
[2019-05-17] MEDS ORDERED: ONDANSETRON HCL/PF 4 MG/2 ML VIAL IVP PRN (19:30)
[2019-05-17] MEDS ORDERED: DEXTROSE 50%-WATER 50 ML DISP.SYRIN IV PRN (19:30)
[2019-05-17] MEDS ORDERED: HYDROCODONE/APAP 5/325MG 1 EACH TABLET PO PRN (19:30)
[2019-05-17] MEDS ORDERED: MAG HYDROX/AL HYDROX/SIMETH 30 ML UDC PO PRN (19:30)
--- NOTE | 2019-05-17 19:35 | NUR ---
REPORT GIVEN TO WAQAS PAULINO FOR ALEX
--- NOTE | 2019-05-17 20:23 | NUR ---
NURSING SUP GAVE ICU BED 254.
--- NOTE | 2019-05-17 20:53 | NUR ---
REPORT GIVEN TO PAUL IN ICU
--- NOTE | 2019-05-17 21:15 | NUR ---
ZAIRE, PICC/MID LINE NURSE AT THE BED SIDE
[2019-05-17 21:23] LABS: THYROID STIMULATING HORMONE 0.376 uIU/mL (0.358-3.74)
[2019-05-17 21:25] LABS: PHOSPHORUS 2.4 mg/dL (2.5-4.9)
[2019-05-17 21:27] LABS: MAGNESIUM 0.8 mg/dL (1.8-2.4)
[2019-05-17 21:43] VITALS: BP 138/69
--- NOTE | 2019-05-17 21:43 | NUR ---
PT WAS TRANDFERRED TO RM 254 UNDER ACLS PROTOCOL IN STABLE CONDITION
[2019-05-17] MEDS: IV NS 0.9% 1,000 ML IV PRN (21:56)
[2019-05-17 22:00] VITALS: BP 121/73
--- NOTE | 2019-05-17 22:00 | NUR ---
QUALITY SYSTEMS MANAGER RCD PT FROM ER W/DX SEPSIS; PT IS AWAKE DOES NOT FOLLOW COMMANDS AND IS NON VERBAL. AFIB ON THE MONITOR. ON O2 2L VIA NC W/DIMINISHED LUNG SOUNDS. PT W/SMALL AMOUNT OF STOOL NOTED; PENDING C DIFF SPECIMEN TO BE COLLECTED PT HAS HX OF DIARRHEA. LEFT HAND SWELLING; ELEVATED ON PILLOW. WOUNDS NOTED TO SACRAL AREA WITH WOUND TREATMENT RENDERED. REQUESTED WOUND CARE CONSULT. VILMA MIDLINE WITH NS INFUSING. PT FROM ER WITH MAGNESIUM 0.[address] EATON FOR FURTHER ORDERS. DAUGHTER INGRIS WOULD LIKE TO BE UPDATED ON MEDICATIONS/TREATMENTS GIVEN TO PT. UPDATED ON PLAN OF CARE AND VISITATION POLICY.
[2019-05-17] MEDS ORDERED: INSULIN REGULAR, HUMAN 100 UNIT/ML 3 ML VIAL ONE (22:14)
[2019-05-17] MEDS: BLOOD SUGAR DIAGNOSTIC 1 EACH STRIP VI SCH (22:31)
[2019-05-17] MEDS: *INSULIN REGULAR(HUMULIN R)HUM 100 UNIT/ML VIAL SQ PRN (22:33)
[2019-05-17] MEDS: Magnesium 1GM/D5W 100ML PREMIX 100 ML IV SCH (22:56)
[2019-05-17] MEDS: IV NS 0.9% 3,000 ML IV PRN (22:59)
[2019-05-17 23:00] VITALS: BP 109/67
--- NOTE | 2019-05-17 23:07 | NUR ---
PROTECTION CHIEF INDUSTRIAL PLANT DR EATON AT BEDSIDE EVALUATING PT. UPDATED DAUGHTER ON PLAN OF CARE.
[2019-05-18] VITALS (21 sets, daily range): BP systolic 75–145; BP diastolic 18–82
[2019-05-18] MEDS: Magnesium 1GM/D5W 100ML PREMIX 100 ML IV SCH ×3 (00:04→09:52)
[2019-05-18] MEDS: IV NS 0.9% 250 ML IV PRN (00:04)
[2019-05-18] MEDS ORDERED: PIPERACILLIN /TAZOBACTAM 3.375 G VIAL IV ONE (00:15)
[2019-05-18] MEDS: PIPERACILLIN /TAZOBACTAM 3.375 G in IV D5W 100 ML IV SCH ×3 (01:01→16:09)
[2019-05-18] MEDS: IV NS 0.9% 3,000 ML IV PRN ×2 (03:35→08:35)
[2019-05-18 04:55] LABS: ALANINE AMINOTRANSFERASE 681 U/L (12-78); ALBUMIN 1.8 g/dL (3.4-5.0); ALKALINE PHOSPHATASE 387 U/L (46-116); ASPARTATE AMINOTRANSFERASE 119 U/L (15-37); BILIRUBIN,DIRECT 0.2 mg/dL (0.0-0.2); BILIRUBIN,TOTAL 0.5 mg/dL (0.2-1.0); CALCIUM, SERUM 7.3 mg/dL (8.5-10.1); CARBON DIOXIDE 31 mmol/L (21-32); CHLORIDE 103 mmol/L (98-107); CREATININE 0.7 mg/dL (0.6-1.3); GLUCOSE 265 mg/dL (74-106); HEMATOCRIT 26 % (33-45); HEMOGLOBIN 8.5 g/dL (11.5-14.8); LYMPHOCYTES # (AUTO) 0.2 /CMM (0.8-4.8); LYMPHOCYTES % (AUTO) 2.2 % (20.0-44.0); MAGNESIUM 1.4 mg/dL (1.8-2.4); MEAN CORPUSCULAR HGB CONC 33 g/dl (31.0-36.0); MEAN CORPUSCULAR VOLUME 94 fL (82-100); MONOCYTES # (AUTO) 0.2 /CMM (0.1-1.30); NEUTROPHILS # (AUTO) 9.3 /CMM (1.8-8.9); NEUTROPHILS % (AUTO) 95.8 % (43.0-81.0); PHOSPHORUS 2.3 mg/dL (2.5-4.9); PLATELET COUNT (AUTO) 54 /CMM (150-450); RED BLOOD CELL COUNT(AUTO) 2.72 MIL/uL (4.0-5.2); SODIUM SERUM 141 mmol/L (136-145); UREA NITROGEN, BLOOD 22 mg/dL (7-18); WHITE BLOOD COUNT (AUTO) 9.7 K/uL (4.3-11.0)
[2019-05-18 06:09] LABS: LYMPHOCYTES % (MANUAL) 3 % (16-48); MONOCYTES % (MANUAL) 3 % (0-11.0); NEUTROPHILS % (MANUAL) 94 (42-76)
--- NOTE | 2019-05-18 07:00 | NUR ---
BIOLOGIST AIDE UNABLE TO COLLECT SPECIMEN FOR CDIFF PT DID NOT HAVE BM. WILL ENDORSE TO NEXT SHIFT. SPO2 SENSOR DID NOT PROPERLY SURGICAL CONSULTANT; NO DISTRESS NOTED.
--- NOTE | 2019-05-18 07:30 | NUR ---
LUNCHROOM OPERATOR AM NOTES RECEIVED REPORT. PT IN BED, NON VERBAL, EYES OPEN, BLANK STARE, NO SOB, ON 2L O2 VIA NASAL CANULA. AFIB HR 120 ON TELE MONITOR. NO SIGNS OF PAIN, BOTH HAND SWOLLEN AND OOZING. ELEVATED WITH PILLOWS. RT HAND G 22 IV ACCESS FLUSHES WELL AND VILMA MIDLINE WITH NS AT 200 ML/HR BAG #2. BOTH SITES CLEAR. SEE NURSING FLOWSHEETS FOR SKIN ISSUES. FOR WOUND CARE CONSULT. FOR SWALLOW EVAL. DAUGHTER INGRIS WOULD LIKE TO BE UPDATED ON MEDICATIONS/TREATMENTS GIVEN TO PT. UPDATED ON PLAN OF CARE AND VISITATION POLICY. HOB ELEVATED. SAFETY MEASURES IN PLACE. WILL MONITOR CLOSELY.
[2019-05-18] MEDS: PANTOPRAZOLE 40 MG TABLET.DR PO SCH (08:12)
[2019-05-18] MEDS: BLOOD SUGAR DIAGNOSTIC 1 EACH STRIP VI SCH ×4 (08:12→21:41)
--- NOTE | 2019-05-18 08:20 | NUR ---
POLICE AND FIRE DISPATCHER NOTES ACCUCHECK. BS 214 MG/DL. 6 UNITS HUM R GIVEN PER SS. TRANSFER TO TELE STATUS PER DR. WHALEY
[2019-05-18] MEDS ORDERED: ENOXAPARIN SODIUM 40 MG/0.4 ML DISP.SYRIN SQ SCH (08:30)
[2019-05-18] MEDS ORDERED: POTASSIUM PHOSPHATE MM 15 MMOL in IV D5W 250 ML IV SCH (08:30)
[2019-05-18] MEDS: INSULIN REGULAR, HUMAN 100 UNIT/ML 3 ML VIAL SQ PRN ×3 (08:48→17:16)
[2019-05-18] MEDS ORDERED: POTASSIUM CHLORIDE 20 MEQ TAB.PRT.SR PO SCH (09:00)
--- NOTE | 2019-05-18 09:30 | NUR ---
HIGH SCHOOL HOME ECONOMICS TEACHER NOTES DUE MEDS GIVEN
--- NOTE | 2019-05-18 11:09 | NUR ---
WOUND CARE CONSULT: PT PRESENTS WITH SACRAL STAGE 3 ULCER WHICH EXTENDS TO LEFT BUTTOCK, LEFT ELBOW SCAR AND LEFT HEEL INTACT DEEP TISSUE INJURY, ALL PRESENT ON ADMISSION. PT NOTED TO HAVE GENERALIZED EDEMA. SURGICAL CONSULT RECOMMENDED AND DR MARY GRACE PRICE AWARE OF CONSULT REQUEST. RECOMMENDATIONS MADE FOR WOUND CARE AND SKIN PROTECTION. DISCUSSED WITH NURSING STAFF AND Hany MCKEON SURGICAL N.P. PT ON FIRST STEP [facility]. WILL SEE PRN. MARI IN AGREEMENT WITH PLAN OF CARE. Addendum: 05/18/19 at 1111 by JOSE VALLES WNDNU Amended: Links added. Addendum: 05/18/19 at 1346 by JOSE VALLES WNDNU CORRECTION: LEFT HEEL DETERMINED TO BE SCAR. AREA TO BE PROTECTED AND OFFLOADED. DISCUSSED WITH NURSING STAFF.
[2019-05-18] MEDS: POTASSIUM PHOSPHATE MM 7.5 MMOL in IV D5W 100 ML IV SCH ×2 (11:18→14:36)
[2019-05-18] MEDS: SANTYL OINTMENT TP SCH (12:00)
--- NOTE | 2019-05-18 12:14 | NUR ---
MENTAL HEALTH NURSE PRACTITIONER NOTES ACCUCHECK DONE. BS 285 MG/DL. 9 UNITS HUM R GIVEN PER SS
[2019-05-18] MEDS: IV NS 0.9% 1,000 ML IV PRN (16:08)
--- NOTE | 2019-05-18 17:07 | NUR ---
DIRECTOR OF FINANCIAL PLANNING NOTES ACCUCHECK DONE. BS 321 MG/DL. 12 UNITS HUM R GIVEN PER SS
--- NOTE | 2019-05-18 19:02 | NUR ---
TOP TAPER MACHINE CLOSING NOTES ALL NEEDS MET. PATIENT RESTING COMFORTABLY. NOT IN ANY DISTRESS. PM CARE DONE AND PRESCRIBED WOUND TREATMENT. TURNED AND REPOSITIONED Q 2HOURS. HR REMAINS 130s TO 140s, AWARE. IVF RUNNING AT 75 ML/HR TO RIGHT UPPER ARM MIDLINE. SITE CLEAR. PUREED DIET. CALL LIGHT WITHIN REACH. SAFETY MEASURES IN PLACE. NO OTHER SIGNIFICANT CHANGE IN CONDITION. STILL FOR C DIFF STOOL SPECIMEN FOR COLLECTION, NO BM THE WHOLE SHIFT. WILL ENDORSE TO NEXT SHIFT FOR ALEX.
[2019-05-18] MEDS: MICAFUNGIN SODIUM 100 MG in IV NS 0.9% 100 ML IV SCH (20:13)
--- NOTE | 2019-05-18 20:40 | NUR ---
RN NOTES PATIENT TRANSFFERED TO [facility] ROOM 117-1 FOR CONTINUITY OF CARE REPORT GIVEN TO NELLY PAULINO. PATIENT IS AWAKE, NON VERBAL. NO ACUTE RESPIRATORY DISTRESS. WITH O2 3LPM VIA NC. SATURATION 100%. A-FIB UNCONTROLLED ON TELE MONITOR. IV SITE INTACT AND PATENT. IV ATB AT 8PM GIVEN ORDERED. VSS CONTINUE WITH IVF. KEPT PT CLEAN AND DRY. ENDORSED CONTINUITY OF CARE.
--- NOTE | 2019-05-18 20:40 | NUR ---
RN NOTE RECEIVED PATIENT FROM [facility] ICU, REQUESTED BY A NURSE TO TAKE A PICTURE OF LEFT ELBOW/ARM, PICTURE WAS TAKEN, PATIENT IS ON 3 L/MIN VIA NASAL CANULA, NO RESPIRATORY DISTRESS NOTED, PATIENT IS NON VERBAL, UNCONTROLLED A-FIB 120 BEATS/MIN NOTED, SKIN CARE PROVIDED, ALL SAFETY MEASURES TAKEN, WILL CONTINUE TO MONITOR PATIENT
[2019-05-18] MEDS: *INSULIN REGULAR(HUMULIN R)HUM 100 UNIT/ML VIAL SQ PRN (21:40)
[2019-05-19] VITALS (14 sets, daily range): BP systolic 91–141; BP diastolic 48–92
[2019-05-19] MEDS: PIPERACILLIN /TAZOBACTAM 3.375 G in IV D5W 100 ML IV SCH ×3 (00:26→17:06)
[2019-05-19 07:00] LABS: HEMATOCRIT 26 % (33-45); HEMOGLOBIN 8.5 g/dL (11.5-14.8); LYMPHOCYTES # (AUTO) 0.2 /CMM (0.8-4.8); LYMPHOCYTES % (AUTO) 1.6 % (20.0-44.0); MEAN CORPUSCULAR HGB CONC 33 g/dl (31.0-36.0); MEAN CORPUSCULAR VOLUME 93 fL (82-100); MONOCYTES # (AUTO) 0.2 /CMM (0.1-1.30); MONOCYTES % (AUTO) 2.3 % (2.0-12.0); NEUTROPHILS # (AUTO) 9.4 /CMM (1.8-8.9); NEUTROPHILS % (AUTO) 96.1 % (43.0-81.0); PLATELET COUNT (AUTO) 59 /CMM (150-450); RED BLOOD CELL COUNT(AUTO) 2.75 MIL/uL (4.0-5.2); WHITE BLOOD COUNT (AUTO) 9.8 K/uL (4.3-11.0)
--- NOTE | 2019-05-19 07:20 | NUR ---
RN INITIAL NOTES PATIENT IN BED, NON VERBAL ONLY OPENS EYES. ON 3L NC, SATING WELL >95%. ON TELE MONITOR, AFIB. LEAD PRESSMAN AWARE STATES THAT MAY BE PHYSIOLOGIC, HYDRATE PATIENT AND FOLLOW UP. STOOL SAMPLE PENDING, NO BM LAST NIGHT. HAS RIGHT UA MIDLINE WITH NS AT 75ML/HR. RIGHT HAND #22 SALINE LOCKED. NO SIGNS OF ANY PAIN OR SOB. BED LOCKED AND IN LOWEST POSITION. WILL CONTINUE TO MONITOR LATER
[2019-05-19 07:28] LABS: ALANINE AMINOTRANSFERASE 505 U/L (12-78); ALBUMIN 1.7 g/dL (3.4-5.0); ALKALINE PHOSPHATASE 424 U/L (46-116); ASPARTATE AMINOTRANSFERASE 63 U/L (15-37); BILIRUBIN,TOTAL 0.5 mg/dL (0.2-1.0); CALCIUM, SERUM 8.1 mg/dL (8.5-10.1); CARBON DIOXIDE 27 mmol/L (21-32); CHLORIDE 105 mmol/L (98-107); CREATININE 0.7 mg/dL (0.6-1.3); GLUCOSE 145 mg/dL (74-106); MAGNESIUM 1.5 mg/dL (1.8-2.4); PHOSPHORUS 2.6 mg/dL (2.5-4.9); POTASSIUM 3.1 mmol/L (3.5-5.1); SODIUM SERUM 141 mmol/L (136-145); TOTAL PROTEIN, SERUM 4.2 g/dL (6.4-8.2); UREA NITROGEN, BLOOD 16 mg/dL (7-18)
[2019-05-19] MEDS: BLOOD SUGAR DIAGNOSTIC 1 EACH STRIP VI SCH ×4 (07:46→22:47)
[2019-05-19 08:04] LABS: BAND % (MANUAL) 1 % (0.0-5.0); LYMPHOCYTES % (MANUAL) 1 % (16-48); MONOCYTES % (MANUAL) 3 % (0-11.0); NEUTROPHILS % (MANUAL) 95 (42-76)
[2019-05-19] MEDS: PANTOPRAZOLE 40 MG TABLET.DR PO SCH (08:06)
[2019-05-19] MEDS: SANTYL OINTMENT TP SCH (08:17)
--- NOTE | 2019-05-19 09:31 | NUR ---
WOUND CARE CONSULT: RECEIVED CONSULT TO RECHECK LEFT ELBOW SCAR. NO DRAINAGE NOTED BUT LEFT ARM NOTED TO BE VERY EDEMATOUS WITH SOME WEEPING EDEMA. ELEVATED ON PILLOW WITH MEPILEX PROTECTION ON LEFT ELBOW. CONTINUE PRESENT TREATMENT. DISCUSSED WITH NURSING STAFF. DEFER TO MD FOR EDEMA. WILL SEE PRN.
[2019-05-19 09:42] LABS: ALBUMIN 1.7 g/dL (3.4-5.0); BILIRUBIN,DIRECT 0.2 mg/dL (0.0-0.2); BILIRUBIN,TOTAL 0.5 mg/dL (0.2-1.0); TOTAL PROTEIN, SERUM 4.3 g/dL (6.4-8.2)
--- NOTE | 2019-05-19 10:30 | NUR ---
RN NOTES DR ALEXANDER AT BEDSIDE, AWARE OF THE PATIENT'S BILATERAL EDEMA ON BILATERAL UPPER EXTREMITIES. BLOOD CX PENDING. AWARE THAT THE DAUGHTER IS CONCERNED ABOUT THE PATIENT'S OXYGEN ON NASAL CANNULA.
--- NOTE | 2019-05-19 11:15 | NUR ---
RN NOTES DAUGHTER AT BEDSIDE, AWARE OF PATIENT'S CONDITION AT THIS TIME. BLOOD CX STILL PENDING.
[2019-05-19] MEDS: POTASSIUM CL. PREMIX PERIPHER. 50 ML IV SCH ×6 (11:16→19:15)
[2019-05-19] MEDS: Magnesium 1GM/D5W 100ML PREMIX 100 ML IV SCH ×2 (11:16→13:26)
[2019-05-19] MEDS: INSULIN REGULAR, HUMAN 100 UNIT/ML 3 ML VIAL SQ PRN ×2 (12:24→17:35)
[2019-05-19] MEDS: IV NS 0.9% 1,000 ML IV PRN (12:31)
[2019-05-19] MEDS: GLUCERNA SHAKE 237 ML CAN PO SCH (14:03)
--- NOTE | 2019-05-19 17:37 | NUR ---
INITIAL RESULTS OF DUPLEX VENOUS UPPER EXT BI SHOWED POSITIVE FOR THROMBUS AT LT BRACHIAL AND LT RADIAL VEINS. ADVISED ATTENDING AND TEXTILE MACHINE OPERATOR, AND CHAPARRITA RE PRELIMINARY FINDINGS.
--- NOTE | 2019-05-19 19:24 | NUR ---
DECK SCALER NOTES RECEIVED PT ON BED. A/O X 1. LETHARGIC. ON TELE MONITOR AFIB UNCONTROLLED. ON NASAL CANNULA 5LPM, RESPIRATORY DISTRESS NOTED. 19:26 CALLED YARN TEXTURING MACHINE OPERATOR FOR SOB, DESATURATION IN NASAL CANNULA 5LPM. PT PLACED ON NRB 15L. CALLED EPIC TELECINE OPERATOR FOR ORDERS. ABG RESULTED, CXR STAT ORDERED. PER TELECINE OPERATOR, TRANSFER PT TO ICU WITH BIPAP ORDERS. 19:58 PT TRANSFERRED TO ICU VIA ACLS PROTOCOL WITH ICU NURSE AND PRIMARY NURSE.
--- NOTE | 2019-05-19 19:30 | NUR ---
WARP PICKER NOTES PER DR ALEXANDER , ORDERED LOVENOX 1MG/KG Q12H PHARMACY TO DOSE.
--- NOTE | 2019-05-19 19:44 | NUR ---
RN CLOSING NOTES PATIENT IN BED, NON VERBAL OPENS EYES ONLY. DAUGHTER AT BEDSIDE AND NOC SHIFT CN AT BEDSIDE, DECIDED TO CALL VASCULAR SURGEON. PATIENT'S BASELINE IS A&Ox0. WAS NOT ABLE TO GET A CORRECT READING OF THE PATIENT'S SATURATION. ORDERED A STAT ABG, AND STAT CXR PER DR BERGER. RESULTS STILL PENDING. CN AND ICU NURSE AT BEDSIDE. AWARE THAT THE PATIENT IS STILL ON UNCONTROLLED AFIB, AWARE. DR ALEXANDER AWARE THAT PATIENT IS POSITIVE FOR DVT ON HER LEFT BRACHIAL AND RADIAL. ORDERED LOVENOX, CARRIED OUT BY NOC SHIFT RN. STOOL SAMPLE STILL PENDING. BLOOD CX STILL PENDING. REPORT GIVEN TO NOC SHIFT. ICU NURSE, CN AND PRIMARY NURSE AND DAUGHTER STILL AT BEDSIDE
--- NOTE | 2019-05-19 20:05 | NUR ---
INFORMATICA DEVELOPER RCD PT FROM [facility] POST MEAT PROCESSING CENTER MANAGER. PT PLACED ON BIPAP. ABG TO FOLLOW IN ONE HOUR. DAUGHTER AT BEDSIDE UPDATED ON PLAN OF CARE.
--- NOTE | 2019-05-19 20:08 | NUR ---
PT PLACED ON BIPAP 20/5, RATE 24, FIO2 100% PER MD'S ORDERED . BIPAP PLUGGED INTO RED OUTLET, ALARMS ON AND AUDIBLE. AMBU BAG AT BEDSIDE . WILL CONTINUE TO MONITOR THE PT.
[2019-05-19] MEDS: MICAFUNGIN SODIUM 100 MG in IV NS 0.9% 100 ML IV SCH (20:34)
[2019-05-19] MEDS: ENOXAPARIN SODIUM 40 MG/0.4 ML DISP.SYRIN SQ SCH (20:34)
[2019-05-19 21:08] LABS: ABG BASE EXCESS -2.4 mmol/L; ABG OXYGEN SATURATION 85.8 % (92.0-98.5); ABG PCO2 53.7 mmHg (35.0-45.0); ABG PO2 64.1 mmHg (75.0-100.0); AaDO2 595.2 mmHg; COHb 0.3 % (0.5-1.5); MetHb 0.8 % (0.0-1.5); O2Hb 84.9 % (94.0-97.0); SITE, ABG Right Radial
[2019-05-19 21:51] LABS: ABG BASE EXCESS -5.7 mmol/L; ABG OXYGEN SATURATION 61.9 % (92.0-98.5); ABG PCO2 104.7 mmHg (35.0-45.0); ABG PH 7.018 (7.350-7.450); ABG PO2 51.5 mmHg (75.0-100.0); AaDO2 556.8 mmHg; COHb 0.1 % (0.5-1.5); O2Hb 61.2 % (94.0-97.0); SITE, ABG Right Radial
[2019-05-19 22:46] LABS: ABG OXYGEN SATURATION 94.6 % (92.0-98.5); ABG PCO2 45.5 mmHg (35.0-45.0); ABG PH 7.352 (7.350-7.450); ABG PO2 87.8 mmHg (75.0-100.0); AaDO2 579.7 mmHg; COHb 0.3 % (0.5-1.5); MetHb 0.8 % (0.0-1.5); O2Hb 93.6 % (94.0-97.0); SITE, ABG Right Radial
--- NOTE | 2019-05-19 23:00 | NUR ---
SALVAGE LABORER PT NOTED TO BE MORE AWAKE. CONTINUE TO MONITOR.
[2019-05-20] VITALS (30 sets, daily range): BP systolic 66–146; BP diastolic 28–119
[2019-05-20] MEDS: *INSULIN REGULAR(HUMULIN R)HUM 100 UNIT/ML VIAL SQ PRN (00:04)
[2019-05-20] MEDS: PIPERACILLIN /TAZOBACTAM 3.375 G in IV D5W 100 ML IV SCH ×3 (01:02→17:08)
[2019-05-20] MEDS: IV NS 0.9% 1,000 ML IV PRN (03:59)
[2019-05-20 04:27] LABS: BASOPHILS % (AUTO) 0.1 % (0.0-2.0); EOSINOPHILS % (AUTO) 0.1 % (0.0-6.0); HEMATOCRIT 27 % (33-45); HEMOGLOBIN 8.9 g/dL (11.5-14.8); LYMPHOCYTES # (AUTO) 0.1 /CMM (0.8-4.8); MEAN CORPUSCULAR HGB CONC 33 g/dl (31.0-36.0); MEAN CORPUSCULAR VOLUME 96 fL (82-100); MONOCYTES # (AUTO) 0.1 /CMM (0.1-1.30); MONOCYTES % (AUTO) 3.1 % (2.0-12.0); NEUTROPHILS # (AUTO) 4.3 /CMM (1.8-8.9); NEUTROPHILS % (AUTO) 93.7 % (43.0-81.0); PLATELET COUNT (AUTO) 52 /CMM (150-450); RED BLOOD CELL COUNT(AUTO) 2.83 MIL/uL (4.0-5.2); WHITE BLOOD COUNT (AUTO) 4.5 K/uL (4.3-11.0)
[2019-05-20 04:48] LABS: ALANINE AMINOTRANSFERASE 384 U/L (12-78); ALBUMIN 1.5 g/dL (3.4-5.0); ALKALINE PHOSPHATASE 476 U/L (46-116); ASPARTATE AMINOTRANSFERASE 80 U/L (15-37); BILIRUBIN,TOTAL 0.4 mg/dL (0.2-1.0); CALCIUM, SERUM 8.6 mg/dL (8.5-10.1); CARBON DIOXIDE 25 mmol/L (21-32); CHLORIDE 106 mmol/L (98-107); CREATININE 0.9 mg/dL (0.6-1.3); GLUCOSE 330 mg/dL (74-106); PHOSPHORUS 2.7 mg/dL (2.5-4.9); POTASSIUM 4.5 mmol/L (3.5-5.1); SODIUM SERUM 141 mmol/L (136-145); TOTAL PROTEIN, SERUM 4.2 g/dL (6.4-8.2); UREA NITROGEN, BLOOD 19 mg/dL (7-18)
[2019-05-20 05:10] LABS: BAND % (MANUAL) 7 % (0.0-5.0); LYMPHOCYTES % (MANUAL) 3 % (16-48); MONOCYTES % (MANUAL) 3 % (0-11.0); NEUTROPHILS % (MANUAL) 85 (42-76)
--- NOTE | 2019-05-20 07:03 | NUR ---
SERVICE GIRL MINIMAL URINE OUTPUT; MD AWARE WITH NO NEW ORDERS.
--- NOTE | 2019-05-20 08:00 | NUR ---
ICU/RN INITIAL NOTES RECEIVED REPORT FROM NIGHT NURSE. PT OPENS EYES, DOES NOT FOLLOW COMMANDS, RESPONDS TO SOME TACTILE STIMULI. ON BIPAP WITH SETTINGS ORDERED BY MD, WILL TRY NASAL CANULA. PT YONI ON TELE. IV FLUID INFUSING ORDERED. VILLANUEVA CATH IN PLACE, DRAINING MINIMAL AMOUNT OF URINE. MIDLINE PATENT AND INTACT. BLOOD PRESSURE CUFF PLACED ON LEFT LEG. ALL NEEDS WILL BE ATTENDED TO, SAFETY MEASURES TAKEN, BED IN LOW POSITION, SIDE RAILS UP, CALL LIGHT WITHIN REACH. WILL CONTINUE TO MONITOR AND CARE.
--- NOTE | 2019-05-20 08:14 | NUR ---
placed into 3 lpm o2 flow via nasal cannula daughter @ bedside. spo2 96 - 98%. bipap machine on stand by @ bedside. Addendum: 05/20/19 at 0816 by JAMES MORRIS RT Amended: Links added.
[2019-05-20] MEDS: BLOOD SUGAR DIAGNOSTIC 1 EACH STRIP VI SCH ×6 (08:20→23:56)
[2019-05-20] MEDS: PANTOPRAZOLE 40 MG TABLET.DR PO SCH (08:20)
[2019-05-20] MEDS: ENOXAPARIN SODIUM 40 MG/0.4 ML DISP.SYRIN SQ SCH ×2 (08:22→21:16)
[2019-05-20] MEDS: INSULIN REGULAR, HUMAN 100 UNIT/ML 3 ML VIAL SQ PRN ×2 (08:26→12:30)
[2019-05-20] MEDS: GLUCERNA SHAKE 237 ML CAN PO SCH (08:33)
[2019-05-20] MEDS: SANTYL OINTMENT TP SCH (08:36)
--- NOTE | 2019-05-20 08:37 | NUR ---
placed back to bipap due to increased wob and 87% spo2. Addendum: 05/20/19 at 0838 by JAMES MORRIS RT Amended: Links added.
--- NOTE | 2019-05-20 09:55 | NUR ---
FIO2 DECREASED FROM 100% TO 50% PER DR. MOULTON Addendum: 05/20/19 at 0955 by JAMES MORRIS RT Amended: Links added.
[2019-05-20] MEDS: ACETYLCYSTEINE 10% SOLN 400 MG/4 ML VIAL NEB SCH ×3 (09:56→23:11)
[2019-05-20] MEDS: IPRATROPIUM NEB FS 0.5 MG/2.5 ML AMPUL.NEB NEB SCH ×4 (11:30→23:11)
--- NOTE | 2019-05-20 12:00 | NUR ---
ICU/RN: RECTAL TEMP 94.4 RECEIVED ORDERS FOR AIMEE NAVARRO. WILL REASSESS
[2019-05-20] MEDS ORDERED: IV D5/ 0.9% NACL 1,000 ML IV PRN (15:00)
--- NOTE | 2019-05-20 18:42 | NUR ---
ICU/RN ENDING NOTES,AM REPORT WILL BE ENDORSED TO NIGHT NURSE FOR CONTINUATION OF CARE. PT ON BIPAP ORDERED, TOLERATING WELL, NO DISTRESS. PT ON TELE, UNCONTROLLED A.FIB. BEAR HUGGER IN PLACE FOR LOW TEMP, ASSESSING FREQUENTLY. VILLANUEVA CATH DRAINING MINIMAL URINE. ALL NEEDS WILL BE ATTENDED TO, SAFETY MEASURES TAKEN, BED IN LOW POSITION, SIDE RAILS UP, CALL LIGHT WITHIN REACH.
--- NOTE | 2019-05-20 20:00 | NUR ---
ICU NOTES RECEIVED PT ON BIPAP 50% RATE OF 24, W/ EYES OPEN,TRACKS,DOES NOT FOLLOW COMMANDS.DAUGHTER AT BEDSIDE VISITING,UPDATED W/ PT'S CONDITION,NEEDS A LOT OF REASSURANCE AND MORAL SUPPORT.
[2019-05-20] MEDS: MICAFUNGIN SODIUM 100 MG in IV NS 0.9% 100 ML IV SCH (21:15)
--- NOTE | 2019-05-20 21:45 | NUR ---
ICU NOTES. INCONTINENT OF LARGE AMT SOFT YELLOWISH SOFT STOOL,CLEANSED,COMPLETE BED BATH DONE.
--- NOTE | 2019-05-20 22:00 | NUR ---
ICU NOTES ATTEMPTED TO GIVE ORANGE JUICE FOR BLOOD SUGAR OF 67,BUT UNABLE TO SWALLOW.
[2019-05-21] VITALS (36 sets, daily range): BP systolic 57–187; BP diastolic 30–139
[2019-05-21] MEDS: PIPERACILLIN /TAZOBACTAM 3.375 G in IV D5W 100 ML IV SCH ×3 (01:11→17:21)
[2019-05-21] MEDS: IPRATROPIUM NEB FS 0.5 MG/2.5 ML AMPUL.NEB NEB SCH ×6 (03:14→23:39)
[2019-05-21 04:30] LABS: BASOPHILS % (AUTO) 0.1 % (0.0-2.0); HEMATOCRIT 25 % (33-45); HEMOGLOBIN 8.4 g/dL (11.5-14.8); LYMPHOCYTES # (AUTO) 0.3 /CMM (0.8-4.8); LYMPHOCYTES % (AUTO) 3.6 % (20.0-44.0); MEAN CORPUSCULAR HGB CONC 34 g/dl (31.0-36.0); MEAN CORPUSCULAR VOLUME 93 fL (82-100); MONOCYTES # (AUTO) 0.2 /CMM (0.1-1.30); MONOCYTES % (AUTO) 2.5 % (2.0-12.0); NEUTROPHILS # (AUTO) 6.5 /CMM (1.8-8.9); NEUTROPHILS % (AUTO) 93.8 % (43.0-81.0); WHITE BLOOD COUNT (AUTO) 6.9 K/uL (4.3-11.0)
[2019-05-21 04:35] LABS: PLATELET COUNT (AUTO) 37 /CMM (150-450)
[2019-05-21 04:40] LABS: CALCIUM, SERUM 8.7 mg/dL (8.5-10.1); CARBON DIOXIDE 22 mmol/L (21-32); CHLORIDE 108 mmol/L (98-107); CREATININE 0.7 mg/dL (0.6-1.3); GLUCOSE 144 mg/dL (74-106); MAGNESIUM 1.7 mg/dL (1.8-2.4); PHOSPHORUS 3.1 mg/dL (2.5-4.9); POTASSIUM 3.9 mmol/L (3.5-5.1); SODIUM SERUM 141 mmol/L (136-145); UREA NITROGEN, BLOOD 22 mg/dL (7-18)
[2019-05-21 04:55] LABS: BAND % (MANUAL) 1 % (0.0-5.0); LYMPHOCYTES % (MANUAL) 4 % (16-48); MONOCYTES % (MANUAL) 2 % (0-11.0); NEUTROPHILS % (MANUAL) 92 (42-76)
--- NOTE | 2019-05-21 06:00 | NUR ---
ICU NOTES REMAINS IN A-FIB FROM 130'S TO120'S.
--- NOTE | 2019-05-21 07:00 | NUR ---
ICU NOTES REPORT AND CARE OF PT. GIVEN TO ALISSA PAULINO.
[2019-05-21] MEDS: PANTOPRAZOLE 40 MG TABLET.DR PO SCH (07:30)
[2019-05-21] MEDS: ACETYLCYSTEINE 10% SOLN 400 MG/4 ML VIAL NEB SCH ×3 (07:32→23:39)
[2019-05-21] MEDS: GLUCERNA SHAKE 237 ML CAN PO SCH (08:08)
[2019-05-21] MEDS: BLOOD SUGAR DIAGNOSTIC 1 EACH STRIP VI SCH ×3 (08:11→17:22)
[2019-05-21] MEDS: Magnesium 1GM/D5W 100ML PREMIX 100 ML IV SCH ×2 (08:20→09:10)
[2019-05-21] MEDS: SANTYL OINTMENT TP SCH (08:21)
[2019-05-21 08:36] LABS: ABG OXYGEN SATURATION 98.5 % (92.0-98.5); ABG PCO2 24.1 mmHg (35.0-45.0); ABG PH 7.566 (7.350-7.450); ABG PO2 199.3 mmHg (75.0-100.0); AaDO2 130.1 mmHg; COHb 0.3 % (0.5-1.5); MetHb 1.1 % (0.0-1.5); O2Hb 97.1 % (94.0-97.0); PEEP,BG 5 cm H2O; SITE, ABG Right Radial; VENT MODE, BG ST 20/5 BUR 24 50%
[2019-05-21] MEDS: FOLIC ACID 1 MG TABLET PO SCH (10:00)
[2019-05-21] MEDS: IV D5/ 0.9% NACL 1,000 ML IV PRN (10:05)
--- NOTE | 2019-05-21 10:45 | NUR ---
ICU/RN: PT CONVERTED TO SINUS RHYTHM, WILL CONTINUE TO MONITOR.
--- NOTE | 2019-05-21 11:45 | NUR ---
ICU/RN: PT TAKEN OFF BIPAP FOR WEANING TRIAL PER . PT STARTED HAVING INCREASED WORK OF BREATHING. RT WAS UNABLE TO OBTAIN AN ABG. MEANWHILE PT PLACED BACK ON BIPAP WITH SETTINGS ORDERED. ORDERS RECEIVED TO INTUBATE PT BASED ON CLINICAL PRESENTATION, NON RESPONSIVENESS AND VBG RESULTS. FAMILY AT BEDSIDE, INFORMED.
--- NOTE | 2019-05-21 12:10 | NUR ---
ICU/RN: PT INTUBATED PER MD ORDERS. PLACED ON VENT WITH SETTINGS ORDERED, DAUGHTER AT BEDSIDE. NO DISTRESS NOTED. WILL CONTINUE TO MONITOR
--- NOTE | 2019-05-21 12:38 | NUR ---
RT NOTE PT INTUBATED PER MD ORDER. AC 18 450 100% +5 PER PELEG ORDER. 7.5 ETT 23 CM AT LIP. ALARMS SET PER PROTOCOL AND AUDIBLE. VENT PLUGGED IN TO RED OUTLET. AMBU BAG AT BED SIDE. RALES HEARD UPON AUSCULTATION. SMALL THIN CLEAR SECRETIONS FOUND UPON SUCTION. PT WAS PREVIOUSLY ON BIPAP BEFORE INTUBATION. FAILED WEANING ON NC DUE TO INCREASE WOB. MORNING ABG ON BIPAP WAS SHOWN TO PELEG DURING HES MORNING ROUNDING. PELEG ORDERED TRIAL ON NC AND POST ARTERIAL BLOOD GAS. UNABLE TO OBTAIN ARTERIAL BLOOD GAS ON NASAL CANNULA TRIAL, VENOUS RESULTS OBTAINED. ASKED AYANA CHASE FOR HELP WITH ARTERIAL BLOOD DRAW. UNABLE TO OBTAIN ABG ONLY VENOUS RESULT BOTH RADIALLY AND BRACHIALLY. PLACED PT BACK ON BIPAP ON PREVIOUS SETTINGS DUE TO HIGH C02 AND LOW PH LEVEL ON VENOUS RESULTS MEAN WHILE WE CONTINUED TO TRY AND OBTAIN ACCURATE ARTERIAL BLOOD RESULTS. LORA OVALLEPI NOTIFIED OF VENOUS RESULTS AND PLAN TO CONTINUE TO TRY TO OBTAIN ACCURATE ARTERIAL BLOOD PER ARTERIAL BLOOD GAS ORDER. Addendum: 05/21/19 at 1255 by VIKAS HINOJOSA RT Amended: Links added.
--- NOTE | 2019-05-21 12:45 | NUR ---
ICU/RN: RECEIVED A CALL FROM AT [facility] REGARDING THE CHEST XRAY. ETT IN RIGHT MAIN STEM BRONCHUS. INFORMED . RECEIVED ORDERS TO PULL BACK ETT 3CM.
[2019-05-21] MEDS ORDERED: ETOMIDATE 2 MG/ML VIAL IV ONE (12:46)
[2019-05-21] MEDS ORDERED: SUCCINYLCHOLINE CHLORIDE 20 MG/ML VIAL IV ONE (12:46)
[2019-05-21] MEDS: DIGOXIN INJ 0.5 MG/2 ML AMPUL IV SCH ×2 (12:58→17:21)
[2019-05-21] MEDS: *INSULIN REGULAR(HUMULIN R)HUM 100 UNIT/ML VIAL SQ PRN (12:59)
[2019-05-21 13:55] LABS: ABG BASE EXCESS -5.7 mmol/L; ABG OXYGEN SATURATION 98.2 % (92.0-98.5); ABG PCO2 26.7 mmHg (35.0-45.0); ABG PH 7.437 (7.350-7.450); ABG PO2 154.1 mmHg (75.0-100.0); AaDO2 532.2 mmHg; COHb 0.3 % (0.5-1.5); MetHb 0.9 % (0.0-1.5); PEEP,BG 5 cm H2O; SITE, ABG Right Radial; VENT MODE, BG AC 18 450 100% +5; VT, ABG 450 mL
--- NOTE | 2019-05-21 18:45 | NUR ---
ICU/RN ENDING NOTES,AM REPORT WILL BE ENDORSED TO NIGHT NURSE FOR CONTINUATION OF CARE. PT ON VENT SETTINGS ORDERED BY , ETT 7.5 20CM AT THE LIP. NO DISTRESS NOTED. VILLANUEVA CATH IN PLACE, RIGHT UPPER ARM MIDLINE PATENT AND INTACT, IVF INFUSING ORDERED. ALL NEEDS ATTENDED TO, SAFETY MEASURES TAKEN. BED IN LOW POSITION, SIDE RAILS UP, CALL LIGHT WITHIN REACH. PT TURNED AND REPOSITIONED.
[2019-05-21] MEDS ORDERED: DEXTROSE 50%-WATER 50 ML DISP.SYRIN IV PRN (19:00)
--- NOTE | 2019-05-21 19:30 | NUR ---
ICU NOTES RECEIVED PT AWAKE,TRACKS,DOES NOT FOLLOW COMMANDS.PT ON VENT VIA ORAL ETT,O2 SAT.91%-94% ,FIO2 50%.MONITOR SHOW ATRIAL FLUTTER CONTROLLED RATE.
[2019-05-21] MEDS: MICAFUNGIN SODIUM 100 MG in IV NS 0.9% 100 ML IV SCH (19:44)
--- NOTE | 2019-05-21 20:15 | NUR ---
ICU NOTES DAUGHTER IN TO SEE PT.DETAILED REPORT GIVEN,REASSURANCE GIVEN.
[2019-05-21] MEDS: MEROPENEM 500 MG in IV NS 0.9% 50 ML IV SCH (20:55)
--- NOTE | 2019-05-21 22:00 | NUR ---
ICU NOTES SUCTIONED FOR SCANT-MODERATE BEIGE SECRETIONS.ORAL CARE DONE
[2019-05-21] MEDS: BLOOD SUGAR DIAGNOSTIC 1 EACH STRIP IN SCH (22:16)
[2019-05-22] VITALS (37 sets, daily range): BP systolic 85–143; BP diastolic 38–111
[2019-05-22] MEDS: IV D5/ 0.9% NACL 1,000 ML IV PRN ×2 (00:13→12:44)
[2019-05-22] MEDS: IPRATROPIUM NEB FS 0.5 MG/2.5 ML AMPUL.NEB NEB SCH ×6 (03:33→23:55)
[2019-05-22] MEDS ORDERED: DIGOXIN INJ 0.5 MG/2 ML AMPUL ONE (04:34)
[2019-05-22] MEDS: DIGOXIN INJ 0.5 MG/2 ML AMPUL IV SCH (04:40)
--- NOTE | 2019-05-22 04:41 | NUR ---
ICU NOTES DIGOXIN 0.5MG GIVEN IVP,MISSED DOSE AT M/N.MONITOR SHOWS BRUNILDA ABREU. Addendum: 05/22/19 at 0447 by HUSSAIN AVILA RN DIGOXIN 0.25MG IVP GIVEN INSTEAD OF 0.5
[2019-05-22] MEDS: MEROPENEM 500 MG in IV NS 0.9% 50 ML IV SCH (04:50)
[2019-05-22 05:45] LABS: ALANINE AMINOTRANSFERASE 605 U/L (12-78); ALKALINE PHOSPHATASE 385 U/L (46-116); ASPARTATE AMINOTRANSFERASE 550 U/L (15-37); BILIRUBIN,DIRECT 0.3 mg/dL (0.0-0.2); BILIRUBIN,TOTAL 0.6 mg/dL (0.2-1.0); CALCIUM, SERUM 8.9 mg/dL (8.5-10.1); CARBON DIOXIDE 23 mmol/L (21-32); CHLORIDE 110 mmol/L (98-107); CREATININE 0.9 mg/dL (0.6-1.3); GLUCOSE 291 mg/dL (74-106); MAGNESIUM 2.2 mg/dL (1.8-2.4); PHOSPHORUS 3.3 mg/dL (2.5-4.9); POTASSIUM 3.7 mmol/L (3.5-5.1); SODIUM SERUM 143 mmol/L (136-145); TOTAL PROTEIN, SERUM 3.6 g/dL (6.4-8.2); UREA NITROGEN, BLOOD 25 mg/dL (7-18)
[2019-05-22] MEDS: BLOOD SUGAR DIAGNOSTIC 1 EACH STRIP IN SCH ×3 (06:00→17:28)
--- NOTE | 2019-05-22 06:00 | NUR ---
ICU/NOTES REMAINS IN A-FIB FLUTTER CONTROLLED VENTRICULAR RESPONSE.AWAKE TOLERATING VENT,SAT. OF 96-97%.SUBNORMAL TEMP OF 96.4DEGREES ,PLACED ON HYPERTHERMIA BLANKET.PT AWAKE, TRACKS.
[2019-05-22] MEDS: INSULIN REGULAR, HUMAN 100 UNIT/ML 3 ML VIAL SQ PRN ×2 (06:01→13:00)
[2019-05-22 06:25] LABS: ALBUMIN 1.1 g/dL (3.4-5.0)
[2019-05-22] MEDS: ACETYLCYSTEINE 10% SOLN 400 MG/4 ML VIAL NEB SCH ×3 (07:07→23:55)
--- NOTE | 2019-05-22 07:10 | NUR ---
DIVEMASTER INITIAL NOTES PT RECEIVED INTUBATED AND ON MECHANICAL VENTILATOR. VENT SETTINGS ASSESSED FOR ACCURACY. PT TOLERATING SETTINGS WELL. NO SOB OR ACUTE SIGNS OF DISTRESS NOTED. BREATHING IS EVEN AND UNLABORED. PT SATING AT 100%. SHE IS UNABLE TO FOLLOW SIMPLE COMMANDS, HOWEVER RESPONDS TO TACTILE AND PAINFUL STIMULI AND TRACKS WITH EYES. SHE IS NOTED TO BE AFIB ON MONITOR WITH A CURRENT HR OF 93. F/C NOTED TO BE C/D/I AND DRAINING TO GRAVITY. RIGHT UPPER ARM MIDLINE NOTED TO BE PATENT AND INTACT. MINIMAL BLOOD RETURN NOTED. PT TOLERATING D5NS AT ORDERED RATE WELL. BED IN LOW LOCKED POSITION, SIDE RAILS UP X3. WILL CONTINUE TO MONITOR
[2019-05-22] MEDS: GLUCERNA SHAKE 237 ML CAN PO SCH (08:37)
[2019-05-22] MEDS: SANTYL OINTMENT TP SCH (08:42)
[2019-05-22 09:27] LABS: ABG BASE EXCESS -2.3 mmol/L; ABG OXYGEN SATURATION 98.7 % (92.0-98.5); ABG PCO2 25.7 mmHg (35.0-45.0); ABG PH 7.511 (7.350-7.450); ABG PO2 217.7 mmHg (75.0-100.0); AaDO2 181.8 mmHg; COHb 0.3 % (0.5-1.5); MetHb 0.9 % (0.0-1.5); O2Hb 97.5 % (94.0-97.0); PEEP,BG 5 cm H2O; SITE, ABG Left Radial; VENT MODE, BG AC 14 450 60% +5; VT, ABG 450 mL
[2019-05-22 09:33] LABS: EOSINOPHILS % (AUTO) 0.2 % (0.0-6.0); HEMATOCRIT 23 % (33-45); HEMOGLOBIN 7.3 g/dL (11.5-14.8); LYMPHOCYTES # (AUTO) 0.2 /CMM (0.8-4.8); LYMPHOCYTES % (AUTO) 3.2 % (20.0-44.0); MEAN CORPUSCULAR HGB CONC 32 g/dl (31.0-36.0); MEAN CORPUSCULAR VOLUME 96 fL (82-100); MONOCYTES # (AUTO) 0.1 /CMM (0.1-1.30); MONOCYTES % (AUTO) 1.3 % (2.0-12.0); NEUTROPHILS # (AUTO) 4.9 /CMM (1.8-8.9); NEUTROPHILS % (AUTO) 95.3 % (43.0-81.0); RED BLOOD CELL COUNT(AUTO) 2.36 MIL/uL (4.0-5.2); WHITE BLOOD COUNT (AUTO) 5.1 K/uL (4.3-11.0)
[2019-05-22 09:37] LABS: PLATELET COUNT (AUTO) 26 /CMM (150-450)
[2019-05-22 09:50] LABS: BAND % (MANUAL) 1 % (0.0-5.0); LYMPHOCYTES % (MANUAL) 4 % (16-48); MONOCYTES % (MANUAL) 2 % (0-11.0); NEUTROPHILS % (MANUAL) 93 (42-76)
[2019-05-22] MEDS: FOLIC ACID 1 MG TABLET PO SCH (11:19)
--- NOTE | 2019-05-22 11:41 | NUR ---
FISCAL ASSISTANT NOTES: MD STRAUSS (DR ALEXANDER) AT BEDSIDE AND UPDATED ON PT'S CONDITION, VITALS, AND RECENT LABS. ORDERS NOTED TO TRANSFUSE 1 UNIT OF PLT AND OBTAIN SAMPLE FOR OB STOOL ONCE PT HAS A BM. ALSO STATES THAT TUBE FEEDINGS MAY BE INITIATED VIA OG TUBE. DIETARY CONSULT PLACED. WILL CARRY OUT ORDERS DIRECTED Addendum: 05/22/19 at 1158 by MEGAN LUI RN PER MD D/C IV FLUIDS ONCE TUBE FEEDINGS ARE INITIATED
[2019-05-22] MEDS: MEROPENEM 1 G in IV NS 0.9% 100 ML IV SCH (12:44)
[2019-05-22] MEDS: IV NS 0.9% 250 ML IV PRN (12:44)
[2019-05-22] MEDS ORDERED: MEROPENEM 1 G in IV NS 0.9% 100 ML IV SCH (13:00)
--- NOTE | 2019-05-22 16:36 | NUR ---
FREIGHT CHECKER NOTES: TUBE FEEDING PT'S DAUGHTER AT BEDSIDE AND CONCERNED WITH PT'S NUTRITIONAL STATUS. PRINTED CIRCUIT BOARD PANELS DEBURRER CONTACTED HOWEVER SHE IS CURRENTLY NOT IN THE HOSPITAL. MADE AWARE. ORDER OBTAINED TO BEGIN PT ON GLUCERNA 1.2 AT A GOAL RATE OF 45 FOR NOW UNTIL PT IS SEEN BY PRINTED CIRCUIT BOARD PANELS DEBURRER
[2019-05-22] MEDS: GLUCERNA 1.2 1,000 ML BOTTLE NG PRN (18:05)
--- NOTE | 2019-05-22 18:18 | NUR ---
RT NOTE PT REMAINS MECHANICALLY VENTILATED VIA 7.5 ETT 20 CM @ LIP. ETT SECURE. CUFF INFLATED VIA FINANCIAL SERVICES REPRESENTATIVE. VENTILATOR SETTINGS PRESCRIBED. ALARMS SET PER PROTOCOL AND AUDIBLE. VENT PLUGGED IN TO RED OUTLET. AMBU BAG AT BED SIDE. NO DISTRESS NOTED. Addendum: 05/22/19 at 1820 by VIKAS HINOJOSA RT Amended: Links added.
--- NOTE | 2019-05-22 19:20 | NUR ---
DIRECTOR OF TEACHER EDUCATION CLOSING NOTES PT REMAINS IN STABLE CONDITION. ALL NEEDS ANTICIPATED FOR AND MET. ALL DUE MEDS GIVEN DIRECTED. PRN/VILLANUEVA CATHETER/ AND WOUND CARE RENDERED. PT REPOSITIONED AND TURNED PER PROTOCOL. UPPER AND LOWER EXTREMITIES OFF LOADED. VSS POST PLT TRANSFUSION. PT TOLERATING TRANSFUSION WELL. MIDLINE REMAINS PATENT AND INTACT. NO ACUTE CHANGES DURING SHIFT. ENDORSED TO NIGHTSHIFT RN FOR ALEX
--- NOTE | 2019-05-22 19:56 | NUR ---
FOREIGN STUDENT ADVISER INITIAL NOTES PT RECEIVED INTUBATED AND ON MECHANICAL VENTILATOR. VENT SETTINGS ASSESSED FOR ACCURACY. PT TOLERATING SETTINGS WELL. NO SOB OR ACUTE SIGNS OF DISTRESS NOTED. BREATHING IS EVEN AND UNLABORED. PT SATING AT 100%. SHE IS UNABLE TO FOLLOW SIMPLE COMMANDS, HOWEVER RESPONDS TO TACTILE AND PAINFUL STIMULI AND TRACKS WITH EYES. SHE IS NOTED TO BE AFIB ON MONITOR WITH A CURRENT HR OF 82. OGT SECURED IN PLACE , GLUCERNA 1.2 @ 20 CC/HR, WELL TOLERATED . F/C NOTED TO BE C/D/I AND DRAINING TO GRAVITY. RIGHT UPPER ARM MIDLINE NOTED TO BE PATENT AND INTACT. MINIMAL BLOOD RETURN NOTED. PT TOLERATING D5NS AT ORDERED
[2019-05-22] MEDS: MICAFUNGIN SODIUM 100 MG in IV NS 0.9% 100 ML IV SCH (20:08)
[2019-05-22 20:41] LABS: OCCULT BLOOD STOOL POSITIVE (NEGATIVE)
[2019-05-23] VITALS (38 sets, daily range): BP systolic 86–153; BP diastolic 31–91
[2019-05-23] MEDS: BLOOD SUGAR DIAGNOSTIC 1 EACH STRIP IN SCH ×4 (00:30→17:07)
[2019-05-23] MEDS: INSULIN REGULAR, HUMAN 100 UNIT/ML 3 ML VIAL SQ PRN ×4 (00:32→17:12)
[2019-05-23] MEDS: MEROPENEM 1 G in IV NS 0.9% 100 ML IV SCH ×2 (01:20→12:25)
[2019-05-23] MEDS: IPRATROPIUM NEB FS 0.5 MG/2.5 ML AMPUL.NEB NEB SCH ×6 (03:44→23:10)
[2019-05-23 04:42] LABS: BASOPHILS % (AUTO) 0.1 % (0.0-2.0); EOSINOPHILS % (AUTO) 0.2 % (0.0-6.0); HEMATOCRIT 21 % (33-45); LYMPHOCYTES # (AUTO) 0.1 /CMM (0.8-4.8); LYMPHOCYTES % (AUTO) 1.7 % (20.0-44.0); MEAN CORPUSCULAR HGB CONC 34 g/dl (31.0-36.0); MEAN CORPUSCULAR VOLUME 93 fL (82-100); MONOCYTES # (AUTO) 0.1 /CMM (0.1-1.30); MONOCYTES % (AUTO) 1.9 % (2.0-12.0); NEUTROPHILS # (AUTO) 5.9 /CMM (1.8-8.9); NEUTROPHILS % (AUTO) 96.1 % (43.0-81.0); PLATELET COUNT (AUTO) 60 /CMM (150-450); RED BLOOD CELL COUNT(AUTO) 2.21 MIL/uL (4.0-5.2); WHITE BLOOD COUNT (AUTO) 6.2 K/uL (4.3-11.0)
[2019-05-23 04:54] LABS: HEMOGLOBIN 6.9 g/dL (11.5-14.8)
[2019-05-23 04:59] LABS: ALANINE AMINOTRANSFERASE 431 U/L (12-78); ALKALINE PHOSPHATASE 436 U/L (46-116); ASPARTATE AMINOTRANSFERASE 204 U/L (15-37); BILIRUBIN,TOTAL 0.5 mg/dL (0.2-1.0); CALCIUM, SERUM 8.5 mg/dL (8.5-10.1); CARBON DIOXIDE 25 mmol/L (21-32); CHLORIDE 112 mmol/L (98-107); GLUCOSE 190 mg/dL (74-106); MAGNESIUM 1.9 mg/dL (1.8-2.4); PHOSPHORUS 2.7 mg/dL (2.5-4.9); SODIUM SERUM 146 mmol/L (136-145); TOTAL PROTEIN, SERUM 3.7 g/dL (6.4-8.2); UREA NITROGEN, BLOOD 25 mg/dL (7-18)
[2019-05-23 05:06] LABS: ALBUMIN 1.2 g/dL (3.4-5.0)
[2019-05-23 05:57] LABS: BAND % (MANUAL) 4 % (0.0-5.0); LYMPHOCYTES % (MANUAL) 3 % (16-48); MONOCYTES % (MANUAL) 2 % (0-11.0); NEUTROPHILS % (MANUAL) 91 (42-76)
--- NOTE | 2019-05-23 06:14 | NUR ---
THERAPIST PHYSICAL CLOSING NOTE CL LAB [facility] 6.07/17, REFFERED RESULTS TO AYAKA BERGER AWAITING CALL BACK , ASYMPTOMATIC, NO S/SX OF ACTIVE BLEEDING NOTED AT THIS TIME, WILL ENDORSE TO PM RN TO F/U.
[2019-05-23] MEDS: ACETYLCYSTEINE 10% SOLN 400 MG/4 ML VIAL NEB SCH ×3 (08:28→23:10)
[2019-05-23] MEDS: POTASSIUM CHLORIDE 20 MEQ POWDER PACKET GT SCH ×3 (08:39→11:32)
[2019-05-23] MEDS: FOLIC ACID 1 MG TABLET PO SCH (08:39)
[2019-05-23] MEDS: PANTOPRAZOLE 40 MG/PACK PACK GT SCH (08:39)
[2019-05-23] MEDS: GLUCERNA SHAKE 237 ML CAN PO SCH (08:40)
[2019-05-23] MEDS: SANTYL OINTMENT TP SCH (08:40)
[2019-05-23 10:37] LABS: ABG BASE EXCESS 1.5 mmol/L; ABG PCO2 32.8 mmHg (35.0-45.0); ABG PH 7.494 (7.350-7.450); ABG PO2 68.5 mmHg (75.0-100.0); COHb 0.3 % (0.5-1.5); MetHb 1.2 % (0.0-1.5); O2Hb 90.6 % (94.0-97.0); PEEP,BG 5 cm H2O; SITE, ABG Right Radial; VT, ABG 400 mL
--- NOTE | 2019-05-23 11:34 | NUR ---
RN NOTE 0715: Received patient awake, opens eyes, able to track voice. With ETT to vent, tolerated settings well. No respiratory distress noted at this time. Noted with moderate iglesias secretions when suctioned through ETT. OGT intact, feeding tolerated well. Increased rate to goal at 45mL/hr, will monitor. Kept HOB elevated. Ledbetter cath intact, noted with bridget colored urine drained to BSD. 0800: S/E by dr. Guerin, with order to give 1u PRBC for Hgb 6.9. No active bleeding noted. K 3.0, to give 20mEq Klorcon x 3 doses. 0830: Daughter at bedside, updated re: patient's condition. Jonny at bedside, placed on weaning SIMV mode, will monitor. 0930: S/E by Dr. George, daughter at bedside, concerns were answered by . 1045: Started on blood transfusion, VSS. Will monitor for any adverse reactions. 1115: ABG resulted, Dr. George made aware. 1130: Turned and repositioned q2, kept heels elevated. No any significant changes noted at this time. Blood transfusion ongoing, tolerated well.
[2019-05-23] MEDS: PROSOURCE / PROSTAT (PYXIS) 30 ML UDC GT SCH (17:38)
--- NOTE | 2019-05-23 18:06 | NUR ---
RN NOTE No any significant changes. Tolerated SIMV mode. VSS. Still lethargic.
--- NOTE | 2019-05-23 19:30 | NUR ---
RN NOTES PT RECEIVED ORALLY INTUBATED WITH ETT 7.5 AND 20CM AT LIPLINE, VENT SETTING OF SIMV 4 FIO2 40% AND PEEP 5 ,TOLERATING SETTINGS WELL. NO SOB OR ACUTE SIGNS OF DISTRESS NOTED. RESPONDS TO TACTILE AND PAINFUL STIMULI.SR W/ PAC'S ON TELE MONITOR. IV SITE ON RIGHT UPPER ARM MIDLINE NOTED. PT TOLERATING D5NS AT ORDERED RATE WELL. BED IN LOW LOCKED POSITION, F/C DRAINED VIA GRAVITY , BAG OFF FROM THE FLOOR. KEPT PT CLEAN AN DRY.TURNED AND REPOSITIONED FOR SKIN MANAGEMENT.. CONTINUE TO MONITOR FOR ANY ACTIVE BLEEDING WILL CONTINUE TO MONITOR.
[2019-05-23] MEDS: MICAFUNGIN SODIUM 100 MG in IV NS 0.9% 100 ML IV SCH (20:22)
[2019-05-24] VITALS (27 sets, daily range): BP systolic 123–166; BP diastolic 57–107
[2019-05-24] MEDS: BLOOD SUGAR DIAGNOSTIC 1 EACH STRIP IN SCH ×4 (00:44→18:30)
[2019-05-24] MEDS: MEROPENEM 1 G in IV NS 0.9% 100 ML IV SCH ×2 (00:46→12:53)
[2019-05-24] MEDS: INSULIN REGULAR, HUMAN 100 UNIT/ML 3 ML VIAL SQ PRN ×4 (00:56→18:32)
[2019-05-24] MEDS: IPRATROPIUM NEB FS 0.5 MG/2.5 ML AMPUL.NEB NEB SCH ×6 (03:40→23:14)
[2019-05-24 04:55] LABS: BASOPHILS % (AUTO) 0.3 % (0.0-2.0); HEMATOCRIT 29 % (33-45); HEMOGLOBIN 9.9 g/dL (11.5-14.8); LYMPHOCYTES # (AUTO) 0.1 /CMM (0.8-4.8); MEAN CORPUSCULAR HGB CONC 35 g/dl (31.0-36.0); MEAN CORPUSCULAR VOLUME 93 fL (82-100); MONOCYTES # (AUTO) 0.1 /CMM (0.1-1.30); MONOCYTES % (AUTO) 1.7 % (2.0-12.0); NEUTROPHILS # (AUTO) 7.7 /CMM (1.8-8.9); RED BLOOD CELL COUNT(AUTO) 3.09 MIL/uL (4.0-5.2)
[2019-05-24 05:10] LABS: CALCIUM, SERUM 9.1 mg/dL (8.5-10.1); CARBON DIOXIDE 25 mmol/L (21-32); CHLORIDE 113 mmol/L (98-107); GLUCOSE 266 mg/dL (74-106); MAGNESIUM 1.6 mg/dL (1.8-2.4); PHOSPHORUS 2.4 mg/dL (2.5-4.9); POTASSIUM 3.6 mmol/L (3.5-5.1); SODIUM SERUM 147 mmol/L (136-145); UREA NITROGEN, BLOOD 32 mg/dL (7-18)
[2019-05-24 05:26] LABS: PLATELET COUNT (AUTO) 33 /CMM (150-450)
[2019-05-24 05:57] LABS: LYMPHOCYTES % (MANUAL) 3 % (16-48); NEUTROPHILS % (MANUAL) 97 (42-76)
--- NOTE | 2019-05-24 06:50 | NUR ---
RN NOTES NO CHANGE OF CONDITION ETT AND SIMV MODE SETTING TOLERATED WELL THROUGHOUT THE SHIFT. AFEBRILE. VSS. SR WITH PAC'S ON TELE MONITOR. SATURATION >93%. REPORTED TO DR. BERGER REGARDING CRITICAL LOW PLATELETS 30. NNO. IV SITE, IV ATB GIVEN ORDERED. KEPT PT CLEAN AND DRY. BED BATH DONE. PICTURE TAKEN FOR SKIN ISSUES, DRESSING DONE ORDERED. KEPT PT CLEAN AND DRY. REPOSITIONED Q2H AND PRN. WILL ENDORSED CONTINUITY OF CARE TO AM NURSE.
[2019-05-24] MEDS: ACETYLCYSTEINE 10% SOLN 400 MG/4 ML VIAL NEB SCH ×3 (07:29→23:14)
[2019-05-24] MEDS: PROSOURCE / PROSTAT (PYXIS) 30 ML UDC GT SCH ×2 (08:06→18:30)
[2019-05-24] MEDS: Z GUARD REMEDY 2 OZ OINT TP PRN (08:06)
[2019-05-24] MEDS: SANTYL OINTMENT TP SCH (08:06)
[2019-05-24] MEDS: GLUCERNA SHAKE 237 ML CAN PO SCH (08:09)
[2019-05-24] MEDS: FOLIC ACID 1 MG TABLET PO SCH (08:09)
[2019-05-24] MEDS: PANTOPRAZOLE 40 MG/PACK PACK GT SCH (08:09)
--- NOTE | 2019-05-24 08:45 | NUR ---
ICU/RN: Pt s/b Dr Tristan. Updated on pt status. Orders for platelets noted and carried out. No signs of active bleeding noted. Plan of care dw daughter at bedside.
[2019-05-24 08:51] LABS: ABG BASE EXCESS 0.7 mmol/L; ABG OXYGEN SATURATION 98.1 % (92.0-98.5); ABG PCO2 35.8 mmHg (35.0-45.0); ABG PH 7.452 (7.350-7.450); ABG PO2 162.9 mmHg (75.0-100.0); AaDO2 81.1 mmHg; COHb 0.2 % (0.5-1.5); MetHb 0.7 % (0.0-1.5); O2Hb 97.2 % (94.0-97.0); PEEP,BG 5 cm H2O; SITE, ABG Right Radial
[2019-05-24] MEDS ORDERED: POTASSIUM PHOSPHATE MM 15 MMOL in IV D5W 250 ML IV SCH (09:00)
[2019-05-24] MEDS: GLUCERNA 1.2 1,000 ML BOTTLE NG PRN (09:29)
[2019-05-24] MEDS: Magnesium 1GM/D5W 100ML PREMIX 100 ML IV SCH ×2 (09:29→10:40)
--- NOTE | 2019-05-24 09:45 | NUR ---
RT PER DR HAIRSTON ORDER PATIENT REMOVED FROM VENTILATOR AND PLACED ON T-PIECE C/A 40% CHRISTIAN WELL. WILL CONT TO MONITOR CLOSELY
[2019-05-24 09:59] LABS: IMMUNOGLOBULIN A, SERUM 97 mg/dL (64-422); IMMUNOGLOBULIN G, SERUM 261 mg/dL (700-1600); IMMUNOGLOBULIN M, SERUM 83 mg/dL (26-217)
--- NOTE | 2019-05-24 10:30 | NUR ---
ICU/RN: AM care, oral care, wound care rendered. Pt tolerated well. Pt tracking, awake, alert at the moment. Per daughter "she's much more awake."
[2019-05-24] MEDS: POTASSIUM PHOSPHATE MM 7.5 MMOL in IV D5W 100 ML IV SCH ×2 (10:40→12:53)
[2019-05-24 13:06] LABS: *SPE A/G RATIO 0.9 (0.7-1.7); *SPE ALBUMIN 1.4 g/dL (2.9-4.4); *SPE ALPHA-1-GLOBULIN 0.3 g/dL (0.0-0.4); *SPE ALPHA-2-GLOBULIN 0.6 g/dL (0.4-1.0); *SPE BETA GLOBULIN 0.4 g/dL (0.7-1.3); *SPE GLOBULIN, TOTAL 1.6 g/dL (2.2-3.9); *SPE M-SPIKE Not Observed g/dL (Not Observed); *SPEGAMMA GLOBULIN 0.3 g/dL (0.4-1.8)
--- NOTE | 2019-05-24 14:00 | NUR ---
ICU/RN: Lengthy dw daughter regarding tracheostomy, code status and plan of care. Per daughter - "my mom wouldn't want a tracheostomy." However still wishes for her mother to be full code.
--- NOTE | 2019-05-24 17:15 | NUR ---
ICU/RN: BM noted; hygienic care rendered. Tolerated well.
[2019-05-24] MEDS: MICAFUNGIN SODIUM 100 MG in IV NS 0.9% 100 ML IV SCH (19:40)
--- NOTE | 2019-05-24 19:40 | NUR ---
RN NOTES RECEIVED PATIENT AWAKE ON BED WATCHING TV. NO ACUTE RESPIRATORY DISTRESS TOLERATED COOL AEROSOL @ 10 LPM VIA ETT. SUCTIONED WITH YELLOWISH THICK COLOR SPUTUM. PATIENT IS NON VERBAL , TRACKS EYES. SR W/ OCCT'L PAC'S. IV SITE ON RUE INTACT AND PATENT WITH TKO. OGT INTACT AND PATENT RUNNING WITH GLUCERNA 1.2 RESIDUAL CHECKED WITH 150ML W/ GAS WHILE CHECKING PATENCY. T/R PATIENT, OFFLOADED EXT WITH PILLOWS. KEPT HOB ELEVATED. KEPT PT CLEAN AND DRY.
[2019-05-24] MEDS: Z GUARD REMEDY 2 OZ OINT TP SCH (21:48)
[2019-05-25] VITALS (26 sets, daily range): BP systolic 102–175; BP diastolic 58–119
[2019-05-25] MEDS: MEROPENEM 1 G in IV NS 0.9% 100 ML IV SCH ×2 (00:14→12:25)
[2019-05-25] MEDS ORDERED: MORPHINE SULFATE INJ 2 MG/ML DISP.SYRIN IV PRN (00:30)
[2019-05-25 00:32] LABS: ABG BASE EXCESS 0.3 mmol/L; ABG OXYGEN SATURATION 85.3 % (92.0-98.5); ABG PCO2 48.6 mmHg (35.0-45.0); ABG PH 7.353 (7.350-7.450); ABG PO2 56.1 mmHg (75.0-100.0); AaDO2 318.2 mmHg; COHb 0.2 % (0.5-1.5); MetHb 0.5 % (0.0-1.5); O2Hb 84.7 % (94.0-97.0); SITE, ABG Right Radial; VENT MODE, BG CA 60%
--- NOTE | 2019-05-25 00:35 | NUR ---
PT ON COOL AEROSOL 40%. NOTICED PT IN DISTRESS, LOW O2 SAT, INCREASED WOB. STAT ABG DONE PER DR BERGER. NOTIFIED RN WITH THE ABG RESULT AND DR BERGER. PT PLACED BACK ON THE VENT. WILL CONTINUE TO MONITOR.
--- NOTE | 2019-05-25 00:40 | NUR ---
RN NOTES NOTED PATIENT IN DISTRESS, WITH LOW O2 SATURATION,TACHYCARDIC 130'S - 140'S WITH SBP 174. CALLED RT TO RECHECKED PATIENT AND ETT. INFORMED DR. BERGER WITH ORDER STAT ABG AND GIVE MORPHINE 2MG IVP ONCE. NOTIFIED RT.ABG RESULT PH 7.353, PCO2 48.6 PO2 56.1 AND HCO3 26.4 AWARE, PT IS ON COOL AEROSOL PLACED BACK ON THE VENT SIMV 4 TV 400 FIO2 40% PEEP 5. TOLERATED WELL. SATURATION BACK TO 100%, PRN MEDICINE GIVEN SBP WENT DOWN TO 140'S , HR BACK WNL. NSR ON TELE MONITOR. WILL CONTINUE TO MONITOR.
[2019-05-25] MEDS: INSULIN REGULAR, HUMAN 100 UNIT/ML 3 ML VIAL SQ PRN ×4 (01:14→23:30)
[2019-05-25] MEDS: BLOOD SUGAR DIAGNOSTIC 1 EACH STRIP IN SCH ×5 (01:18→23:29)
[2019-05-25] MEDS: IPRATROPIUM NEB FS 0.5 MG/2.5 ML AMPUL.NEB NEB SCH ×6 (03:34→23:17)
[2019-05-25 04:53] LABS: BASOPHILS % (AUTO) 0.2 % (0.0-2.0); HEMATOCRIT 31 % (33-45); HEMOGLOBIN 10.2 g/dL (11.5-14.8); LYMPHOCYTES # (AUTO) 0.1 /CMM (0.8-4.8); LYMPHOCYTES % (AUTO) 1.7 % (20.0-44.0); MEAN CORPUSCULAR HGB CONC 33 g/dl (31.0-36.0); MEAN CORPUSCULAR VOLUME 92 fL (82-100); MONOCYTES # (AUTO) 0.2 /CMM (0.1-1.30); MONOCYTES % (AUTO) 2.9 % (2.0-12.0); NEUTROPHILS % (AUTO) 95.2 % (43.0-81.0); RED BLOOD CELL COUNT(AUTO) 3.32 MIL/uL (4.0-5.2); WHITE BLOOD COUNT (AUTO) 6.4 K/uL (4.3-11.0)
[2019-05-25 04:59] LABS: PLATELET COUNT (AUTO) 46 /CMM (150-450)
[2019-05-25 05:09] LABS: ALANINE AMINOTRANSFERASE 273 U/L (12-78); ALKALINE PHOSPHATASE 661 U/L (46-116); ASPARTATE AMINOTRANSFERASE 64 U/L (15-37); BILIRUBIN,TOTAL 0.5 mg/dL (0.2-1.0); CALCIUM, SERUM 9.5 mg/dL (8.5-10.1); CARBON DIOXIDE 25 mmol/L (21-32); CHLORIDE 110 mmol/L (98-107); CREATININE 0.8 mg/dL (0.6-1.3); GLUCOSE 183 mg/dL (74-106); PHOSPHORUS 3.2 mg/dL (2.5-4.9); POTASSIUM 3.4 mmol/L (3.5-5.1); SODIUM SERUM 145 mmol/L (136-145); TOTAL PROTEIN, SERUM 4.4 g/dL (6.4-8.2); UREA NITROGEN, BLOOD 35 mg/dL (7-18)
[2019-05-25 05:11] LABS: CHOLESTEROL 91 mg/dL (<200); HDL CHOLESTEROL 38 mg/dL (40-60); LDL 43 mg/dL (0-99); TRIGLYCERIDES 81 mg/dL (30-150)
[2019-05-25 05:21] LABS: ALBUMIN 1.3 g/dL (3.4-5.0)
[2019-05-25 05:39] LABS: LYMPHOCYTES % (MANUAL) 2 % (16-48); MONOCYTES % (MANUAL) 2 % (0-11.0); NEUTROPHILS % (MANUAL) 96 (42-76)
--- NOTE | 2019-05-25 06:58 | NUR ---
RN NOTES PATIENT STABLE AT THIS TIME CONTINUE WITH ETT WITH SIMV SETTING ONGOING. SIMV TOLERATED WELL. AFEBRILE. VSS. SATURATION REMAINED >95%.OGT REMAINED INTACT AND PATENT. IV SITE INTACT AND PATENT. KEPT PT CLEAN AND DRY. ENDORSED CONTINUITY OF CARE TO AM NURSE.
[2019-05-25] MEDS: ACETYLCYSTEINE 10% SOLN 400 MG/4 ML VIAL NEB SCH ×3 (07:12→23:17)
--- NOTE | 2019-05-25 07:30 | NUR ---
RN NOTE: RECEIVED PATIENT IN BED, ASLEEP, BUT SPONTANEOUSLY OPEN HER EYES. ON ETT 7.5 ATTACHED TO LIP LINE @ 20 CM. ON MECHANICAL VENTILATOR SIMV MODE SATURATING 100% WITH CURRENT VENT SETTING. (R) UA MIDLINE NOTED PATENT AND INTACT WITH TRANSPARENT DRESSING IN PLACED. VILLANUEVA CATHETER IN PLACED WITH YELLOW URINE DRAINING TO GRAVITY. BED ALARMED AND LOCKED AT ALL TIMES. CALL LIGHT WITHIN REACH. NEEDS ANTICIPATED. DR. MOULTON WAS INFORMED ABOUT THE CHANGES OF PATIENT CONDITION OVERNIGHT PER PM SHIFT NURSE'S REPORT.
[2019-05-25] MEDS: GLUCERNA SHAKE 237 ML CAN PO SCH (09:00)
--- NOTE | 2019-05-25 09:00 | NUR ---
RN NOTE: GLUCERNA 1 CAN WAS HELD DUE TO PATIENT'S CURRENT CONDITION. PATIENT REMAINED INTUBATED AND RECEIVED OGT FEEDING OF GLUCERNA 1.2 @45ML/HR.
[2019-05-25] MEDS: FOLIC ACID 1 MG TABLET PO SCH (09:38)
[2019-05-25] MEDS: PROSOURCE / PROSTAT (PYXIS) 30 ML UDC GT SCH ×2 (09:38→17:12)
[2019-05-25] MEDS: PANTOPRAZOLE 40 MG/PACK PACK GT SCH (09:38)
[2019-05-25] MEDS: SANTYL OINTMENT TP SCH (09:39)
[2019-05-25] MEDS: Z GUARD REMEDY 2 OZ OINT TP SCH ×2 (09:39→20:56)
[2019-05-25] MEDS: GLUCERNA 1.2 1,000 ML BOTTLE NG PRN (10:22)
[2019-05-25] MEDS ORDERED: POTASSIUM CHLORIDE 20 MEQ POWDER PACKET GT SCH (11:30)
--- NOTE | 2019-05-25 11:34 | NUR ---
RN NOTE: DR. MERRILL WAS PRESENT IN THE UNIT AND MADE HIM AWARE OF THE PATIENT'S CONDITION FROM OVERNIGHT AND REQUESTED TO MD IF HE CAN GIVE AN ORDER FOR REGLAN BECAUSE THE PATIENT WAS NOTED WITH RESIDUALS ON THE TUBE FEEDING OVERNIGHT. MD AGREED AND GAVE A VERBAL ORDER FOR REGLAN, ORDER NOTED AND CARRIED OUT. INGRIS, DAUGHTER WAS INFORMED.
--- NOTE | 2019-05-25 11:57 | NUR ---
RN NOTE: DR. MERRILL WAS ALSO INFORMED ABOUT THE MINIMAL AMOUNT OF URINE OUTPUT OF THE PATIENT. MD SAID TO CLOSELY MONITOR IT. WITH NO NEW ORDER AT THIS TIME.
[2019-05-25] MEDS: METOCLOPRAMIDE HCL 10 MG/2 ML VIAL IV PRN (12:03)
--- NOTE | 2019-05-25 15:00 | NUR ---
RN NOTE: BEDSIDE REPORT WAS GIVEN TO RAFFI CLERICAL ORDER FILLER FOR CONTINUITY OF CARE.
--- NOTE | 2019-05-25 18:22 | NUR ---
RN NOTE On SIMV mode, tolerated at this time. Patient still lethargic. Dr. George spoke to daughter and discussed re: the POC. Daughter also spoke with Jada PETERSON
--- NOTE | 2019-05-25 19:57 | NUR ---
RN NOTE RECEIVED PATIENT IN BED, LETHARGIC, ON SIMV MODE, NO RESPIRATORY DISTRESS, ONGOING TUBE FEEDING, TEMPERATURE 99.3F, COOLING MEASURES APPLIED, ALL SAFETY MEASURES TAKEN
[2019-05-25] MEDS: VORICONAZOLE 200 MG TABLET PO SCH (20:56)
[2019-05-26] VITALS (25 sets, daily range): BP systolic 124–165; BP diastolic 62–98
[2019-05-26] MEDS: MEROPENEM 1 G in IV NS 0.9% 100 ML IV SCH ×2 (00:01→12:08)
[2019-05-26] MEDS: IPRATROPIUM NEB FS 0.5 MG/2.5 ML AMPUL.NEB NEB SCH ×6 (03:15→23:22)
[2019-05-26 04:55] LABS: CALCIUM, SERUM 9.6 mg/dL (8.5-10.1); CARBON DIOXIDE 28 mmol/L (21-32); CHLORIDE 114 mmol/L (98-107); CREATININE 0.9 mg/dL (0.6-1.3); GLUCOSE 338 mg/dL (74-106); POTASSIUM 3.4 mmol/L (3.5-5.1); SODIUM SERUM 149 mmol/L (136-145); UREA NITROGEN, BLOOD 44 mg/dL (7-18)
[2019-05-26 04:56] LABS: BASOPHILS % (AUTO) 0.1 % (0.0-2.0); HEMATOCRIT 27 % (33-45); HEMOGLOBIN 9.3 g/dL (11.5-14.8); LYMPHOCYTES # (AUTO) 0.1 /CMM (0.8-4.8); LYMPHOCYTES % (AUTO) 1.8 % (20.0-44.0); MEAN CORPUSCULAR HGB CONC 34 g/dl (31.0-36.0); MEAN CORPUSCULAR VOLUME 93 fL (82-100); MONOCYTES # (AUTO) 0.1 /CMM (0.1-1.30); NEUTROPHILS # (AUTO) 5.5 /CMM (1.8-8.9); NEUTROPHILS % (AUTO) 96.1 % (43.0-81.0); RED BLOOD CELL COUNT(AUTO) 2.92 MIL/uL (4.0-5.2); WHITE BLOOD COUNT (AUTO) 5.8 K/uL (4.3-11.0)
[2019-05-26] MEDS: INSULIN REGULAR, HUMAN 100 UNIT/ML 3 ML VIAL SQ PRN ×3 (05:12→18:10)
[2019-05-26] MEDS: BLOOD SUGAR DIAGNOSTIC 1 EACH STRIP IN SCH ×3 (05:13→18:07)
[2019-05-26 05:27] LABS: PLATELET COUNT (AUTO) 23 /CMM (150-450)
--- NOTE | 2019-05-26 05:27 | NUR ---
RN NOTE CRITICAL LAB VALUE PLATELETS 23, PAGED CARLITA CHOI,AWAITING TO CALL BACK
--- NOTE | 2019-05-26 05:40 | NUR ---
RN NOTE CARLITA CHOI CALLED BACK REGARDING CRITICAL LAB VALUE PLATELETS 23, NO NEW ORDERS GIVEN AT THIS TIME, BLEEDING PRECAUTIONS TAKEN
--- NOTE | 2019-05-26 06:52 | NUR ---
RN NOTE NO ACUTE CHANGES ON MY SHIFT, NO RESPIRATORY DISTRESS, AFEBRILE AT THIS TIME, BLEEDING PRECAUTIONS TAKEN, VITAL SIGNS STABLE, TURNED AND REPOSITIONED Q 2 HOURS, WOUND CARE PROVIDED ORDERED, WILL ENDORSE TO AM SHIFT TO CONTINUE CARE
--- NOTE | 2019-05-26 07:15 | NUR ---
received patient intubated 7.03/15 with simv 40% fi02 and tolerating well 100% . no s/s distress noted. iv site c/d/i/p. katz cath c/d/i/p. patient tracking however no following of commands. afebrile. tele nsr with pac's. tube feeding running through ogt per order with 30ml residual. skin, safety, aspiration precautions in place and will monitor
[2019-05-26] MEDS ORDERED: POTASSIUM CHLORIDE 20 MEQ POWDER PACKET NG SCH (07:30)
[2019-05-26] MEDS: ACETYLCYSTEINE 10% SOLN 400 MG/4 ML VIAL NEB SCH ×3 (07:30→23:22)
[2019-05-26] MEDS: Z GUARD REMEDY 2 OZ OINT TP SCH ×2 (08:07→21:00)
[2019-05-26] MEDS: FOLIC ACID 1 MG TABLET PO SCH (08:07)
[2019-05-26] MEDS: PROSOURCE / PROSTAT (PYXIS) 30 ML UDC GT SCH ×2 (08:07→16:41)
[2019-05-26] MEDS: GLUCERNA SHAKE 237 ML CAN PO SCH (08:07)
[2019-05-26] MEDS: VORICONAZOLE 200 MG TABLET PO SCH ×2 (08:07→22:11)
[2019-05-26] MEDS: PANTOPRAZOLE 40 MG/PACK PACK GT SCH (08:07)
--- NOTE | 2019-05-26 08:15 | NUR ---
jovi is out and per daughter unable to get more. message to sancho for wound care order update. patient with bm at this time cleansed wound with ns and applied mepilex for protection Addendum: 05/27/19 at 0750 by ROSHAN GUAJARDO RN daughter at bedside for skin check of sacral and buttock wound and thinks "it looks worse" sancho jackman in charge of wound care notified. no new orders.
[2019-05-26] MEDS: SANTYL OINTMENT TP SCH (08:39)
--- NOTE | 2019-05-26 09:27 | NUR ---
0900 dr meyer at bedside speaking with daughter neuro consult at bedside speaking with daughter
--- NOTE | 2019-05-26 09:55 | NUR ---
report given to cassandra oliver for iain. patient stable. vss. per exchange trouble shooter sancho order therahoney to sacral/buttock wound daily and prn soiling. until or if daughter is able to bring
[2019-05-26] MEDS ORDERED: THERAHONEY GEL 1.5 OZ TUBE TP PRN (10:00)
--- NOTE | 2019-05-26 10:00 | NUR ---
ELECTRONIC DEVELOPMENT TECHNICIAN NOTES PT ALEX REPORT GIVEN BY LORA ISLAS IN ICU.RECEIVED PT LYING ON BED WITH ET 7.5/20 AND OG TUBE IN PLACE.PT CAN OPEN EYES,OBTUNDED AND DOESN'T FOLLOW ANY COMMANDS.FC IS IN PLACE.G TUBE IS IN PLACE WITH GLUCERNA @45CC/HR IS RUNNING.MINIMAL GASTRIC RESIDUAL NOTED.TOLERATING WELL.MIDLINE IS ON RIGHT UA,SITE IS CLEAN,DRY AND INTACT.NO INFILTRATION NOTED.BED IS IN LOW POSITION.CALL LIGHT IS WITHIN REACH.FAMILY IS AT BEDSIDE.NO COMPLICATIONS NOTED.WILL CONTINUE TO MONITOR THE PT CLOSELY.
--- NOTE | 2019-05-26 10:04 | NUR ---
per dr mitch griffin morphine
[2019-05-26] MEDS: GLUCERNA 1.2 1,000 ML BOTTLE NG PRN (12:08)
[2019-05-26] MEDS: THERAHONEY GEL 1.5 OZ TUBE TP SCH (13:25)
--- NOTE | 2019-05-26 14:00 | NUR ---
TRAFFIC OPERATIONS MANAGER NOTES PT NOTED WITH SEMILIQUID STOOL WITHOUT FOUL ODOR THIRD TIME IN THE SHIFT.ALLA FRAZIER MADE AWARE AND MADE AWARE.IF IT IS NOT FOUL SMELL AMD NOT WATERY,NO NEED FOR C DIFF TEST.NEW ORDERS NOTED AND CARRIED OUT.
--- NOTE | 2019-05-26 15:58 | NUR ---
NOVELTY WORKER NOTES ORDERED STOOL FOR CDIFF.NEW ORDERS NOTED AND CARRIED OUT.
--- NOTE | 2019-05-26 15:59 | NUR ---
GAS DISTRIBUTION PLANT OPERATOR NOTES PT REPORT GIVEN TO LORA MAXWELL.PT IS STABLE AND NO COMPLICATIONS NOTED.
--- NOTE | 2019-05-26 16:00 | NUR ---
ICU/RN: RECEIVED REPORT FROM LORA IRENE. PT INTUBATED AND RESTING IN BED WITH VENT SETTINGS ORDERED BY . SINUS ON TELE. ALL NEEDS WILL BE ATTENDED TO. TUBE FEEDING INFUSING, 35 RESIDUAL NOTED, WILL CONTINUE TO MONITOR. VILLANUEVA CATH IN PLACE, DRAINING MINIMAL URINE. WILL CONTINUE CARE.
--- NOTE | 2019-05-26 19:07 | NUR ---
ICU/RN ENDING NOTES, AM REPORT ENDORSED TO NIGHT NURSE FOR CONTINUATION OF CARE, ALL NEEDS ATTENDED TO, SAFETY MEASURES TAKEN, BED IN LOW POSITION, SIDE RAILS UP, CALL LIGHT WITHIN REACH. PT ON VENT SETTINGS ORDERED, NO DISTRESS.
--- NOTE | 2019-05-26 20:30 | NUR ---
CIVIL ENGINEERING PROJECT MANAGER. INITIAL ASSESSMENT. RECEIVED THE PT REST ON THE BED. ORALLY INTUBATED. PT ON SIMV MODE. ETT 7.5.ASIMV 4,LIP 20CM.FIO2 30%. PEEP 5. SAT 98%. NO ACUTE DISTRESS NOTED. ORACLE TECHNICAL DEVELOPER SHOWING NSR. IV RT UPPER ARM MID LINE. TKO RUNNING. HOB ELEVATED. OGT FEEDING GLUCERNA 30ML/H. GOAL IS 60ML/H. FC PATENT. HOB ELEVATED. WILL CONTINUE TO MONITOR VITALS.
[2019-05-27] VITALS (24 sets, daily range): BP systolic 106–170; BP diastolic 51–118
[2019-05-27] MEDS: BLOOD SUGAR DIAGNOSTIC 1 EACH STRIP IN SCH ×4 (00:40→18:08)
[2019-05-27] MEDS: INSULIN REGULAR, HUMAN 100 UNIT/ML 3 ML VIAL SQ PRN ×4 (00:41→18:10)
--- NOTE | 2019-05-27 03:13 | NUR ---
silviculturist. am care. oral care, bed bath given. linen changed. remaining same vent setting tolerated well. sat 98%. no acute distress noted. radiation monitor showing nsr. iv tko running. fc patent, urine draining. hob elevated, turn and reposition q2h. will continue to monitor vitals.
[2019-05-27] MEDS: IPRATROPIUM NEB FS 0.5 MG/2.5 ML AMPUL.NEB NEB SCH ×6 (03:43→23:53)
[2019-05-27 04:36] LABS: BASOPHILS % (AUTO) 0.1 % (0.0-2.0); HEMATOCRIT 29 % (33-45); HEMOGLOBIN 9.7 g/dL (11.5-14.8); LYMPHOCYTES # (AUTO) 0.2 /CMM (0.8-4.8); LYMPHOCYTES % (AUTO) 2.6 % (20.0-44.0); MEAN CORPUSCULAR HGB CONC 34 g/dl (31.0-36.0); MEAN CORPUSCULAR VOLUME 94 fL (82-100); MONOCYTES # (AUTO) 0.1 /CMM (0.1-1.30); MONOCYTES % (AUTO) 1.4 % (2.0-12.0); NEUTROPHILS % (AUTO) 95.9 % (43.0-81.0); RED BLOOD CELL COUNT(AUTO) 3.06 MIL/uL (4.0-5.2); WHITE BLOOD COUNT (AUTO) 6.3 K/uL (4.3-11.0)
[2019-05-27 04:51] LABS: CALCIUM, SERUM 10.2 mg/dL (8.5-10.1); CARBON DIOXIDE 29 mmol/L (21-32); CHLORIDE 117 mmol/L (98-107); CREATININE 0.8 mg/dL (0.6-1.3); GLUCOSE 304 mg/dL (74-106); POTASSIUM 4.1 mmol/L (3.5-5.1); SODIUM SERUM 153 mmol/L (136-145); UREA NITROGEN, BLOOD 46 mg/dL (7-18)
[2019-05-27 05:51] LABS: PLATELET COUNT (AUTO) 26 /CMM (150-450)
--- NOTE | 2019-05-27 07:30 | NUR ---
ICU/RN: Pt received on SIMV mode, no distress noted. Tracks, alert with periods of lethargy. VSS. FC draining well to gravity.
[2019-05-27] MEDS: ACETYLCYSTEINE 10% SOLN 400 MG/4 ML VIAL NEB SCH ×3 (07:33→23:53)
[2019-05-27] MEDS: Z GUARD REMEDY 2 OZ OINT TP SCH ×2 (08:12→21:50)
[2019-05-27] MEDS: VORICONAZOLE 200 MG TABLET PO SCH ×2 (08:12→21:49)
[2019-05-27] MEDS: FOLIC ACID 1 MG TABLET PO SCH (08:12)
[2019-05-27] MEDS: PROSOURCE / PROSTAT (PYXIS) 30 ML UDC GT SCH ×2 (08:12→18:08)
[2019-05-27] MEDS: PANTOPRAZOLE 40 MG/PACK PACK GT SCH (08:12)
[2019-05-27] MEDS: THERAHONEY GEL 1.5 OZ TUBE TP SCH (08:13)
[2019-05-27] MEDS: GLUCERNA SHAKE 237 ML CAN PO SCH (08:13)
--- NOTE | 2019-05-27 08:50 | NUR ---
ICU/RN: Dr George rounds; updated on pt status, labs reviewed. Pt able to stay awake and alert for approximately one hour at a time; tracks, aphasic. ABG's on CPAP reviewed with MD, currently tolerating weaning trials. New orders noted and carried out.
[2019-05-27 08:57] LABS: ABG BASE EXCESS 2.5 mmol/L; ABG OXYGEN SATURATION 96.9 % (92.0-98.5); ABG PCO2 40.6 mmHg (35.0-45.0); ABG PH 7.439 (7.350-7.450); AaDO2 61.2 mmHg; COHb 0.3 % (0.5-1.5); MetHb 1.2 % (0.0-1.5); O2Hb 95.4 % (94.0-97.0); SITE, ABG Left Radial; VENT MODE, BG CPAP PS 12 +5 30%
--- NOTE | 2019-05-27 09:00 | NUR ---
ICU/RN: Dr Lawrence at bedside; updated on pt status. POC dw Dr George; weaning trial ongoing. C-Diff results pending.
[2019-05-27 10:42] LABS: BAND % (MANUAL) 2 % (0.0-5.0); LYMPHOCYTES % (MANUAL) 9 % (16-48); MONOCYTES % (MANUAL) 2 % (0-11.0); NEUTROPHILS % (MANUAL) 87 (42-76)
--- NOTE | 2019-05-27 12:05 | NUR ---
ICU/RN: Pt noted with long periods of apnea, followed by tachypnea RR 30's, SBP in 170's, facial grimacing and restlessness as evidence by biting and shaking head from side to side. Placed back on SIMV mode per MD order. Dr George notified, no new orders.
--- NOTE | 2019-05-27 14:30 | NUR ---
ICU/RN: zenon Charles's daughter spoke with Dr George at length regarding plan of care. Daughter is now considering tracheostomy placement.
--- NOTE | 2019-05-27 15:30 | NUR ---
ICU/RN: Wound care and hygienic care rendered. Tolerated well. Therahoney and Mepilex applied as ordered. Tolerating SIMV mode.
[2019-05-27] MEDS: Z GUARD REMEDY 2 OZ OINT TP PRN (18:08)
--- NOTE | 2019-05-27 18:30 | NUR ---
ICU/RN: Frequent wound care rendered; pt with weeping edema on bilateral upper extremities; at high risk for skin breakdown.
--- NOTE | 2019-05-27 19:30 | NUR ---
ICU NOTES RECEIVED PT ON VENT VIA ORAL ETT ON SIMV4 RR=12-16/MIN,O2 SAT.OF 100% ON 40%FIO2.DROWSY BUT OPENS EYES TO TOUCH AND WHEN NAME CALLED.PT NON-VERBAL.ON TUBE FEEDING VIA OROGASTRIC TUBE OF GLUCERNA AT 60 ML/HR.OGT CHECKED FOR PATENCY AND NO RESIDUAL OBTAINED.
[2019-05-27 20:33] LABS: D-DIMER 8.86 mg/L(FEU (0.17-0.50)
[2019-05-28] VITALS (37 sets, daily range): BP systolic 67–163; BP diastolic 41–95
[2019-05-28] MEDS: INSULIN REGULAR, HUMAN 100 UNIT/ML 3 ML VIAL SQ PRN ×4 (00:12→17:55)
[2019-05-28] MEDS: BLOOD SUGAR DIAGNOSTIC 1 EACH STRIP IN SCH ×4 (00:23→17:51)
[2019-05-28] MEDS: IPRATROPIUM NEB FS 0.5 MG/2.5 ML AMPUL.NEB NEB SCH ×6 (03:23→23:01)
[2019-05-28] MEDS: GLUCERNA 1.2 1,000 ML BOTTLE NG PRN ×2 (04:00→17:51)
[2019-05-28 05:04] LABS: EOSINOPHILS % (AUTO) 0.4 % (0.0-6.0); HEMATOCRIT 27 % (33-45); HEMOGLOBIN 8.9 g/dL (11.5-14.8); LYMPHOCYTES # (AUTO) 0.3 /CMM (0.8-4.8); LYMPHOCYTES % (AUTO) 2.9 % (20.0-44.0); MEAN CORPUSCULAR HGB CONC 34 g/dl (31.0-36.0); MEAN CORPUSCULAR VOLUME 93 fL (82-100); MONOCYTES # (AUTO) 0.1 /CMM (0.1-1.30); MONOCYTES % (AUTO) 1.5 % (2.0-12.0); NEUTROPHILS # (AUTO) 8.8 /CMM (1.8-8.9); NEUTROPHILS % (AUTO) 95.2 % (43.0-81.0); RED BLOOD CELL COUNT(AUTO) 2.85 MIL/uL (4.0-5.2); WHITE BLOOD COUNT (AUTO) 9.2 K/uL (4.3-11.0)
[2019-05-28 05:16] LABS: CARBON DIOXIDE 31 mmol/L (21-32); CHLORIDE 118 mmol/L (98-107); CREATININE 0.7 mg/dL (0.6-1.3); GLUCOSE 255 mg/dL (74-106); PHOSPHORUS 2.3 mg/dL (2.5-4.9); POTASSIUM 4.5 mmol/L (3.5-5.1); SODIUM SERUM 152 mmol/L (136-145); UREA NITROGEN, BLOOD 47 mg/dL (7-18)
[2019-05-28 05:19] LABS: PLATELET COUNT (AUTO) 17 /CMM (150-450)
[2019-05-28 06:07] LABS: MONOCYTES % (MANUAL) 1 % (0-11.0); NEUTROPHILS % (MANUAL) 88 (42-76)
[2019-05-28 06:08] LABS: BAND % (MANUAL) 9 % (0.0-5.0); LYMPHOCYTES % (MANUAL) 2 % (16-48)
[2019-05-28] MEDS: ACETYLCYSTEINE 10% SOLN 400 MG/4 ML VIAL NEB SCH ×3 (07:10→23:01)
--- NOTE | 2019-05-28 07:10 | NUR ---
ICU NOTES DETAILED REPORT AND CARE OF PT GIVEN TO AFSATU RN
--- NOTE | 2019-05-28 07:34 | NUR ---
ICU NOTES INCONTINENT OF LARGE GRAINY BROWN STOOL,CLEANSED,COMPLETE BED BATH DONE AND TURNED.
--- NOTE | 2019-05-28 07:35 | NUR ---
COTA INITIAL NOTES PT RECEIVED INTUBATED AND ON MECHANICAL VENTILATOR. VENT SETTINGS ASSESSED FOR ACCURACY. PT TOLERATING SIMV WELL. NO SOB OR ACUTE SIGNS OF DISTRESS NOTED. BREATHING IS EVEN AND UNLABORED. PT SATING AT 100%. SHE IS UNABLE TO FOLLOW SIMPLE COMMANDS, HOWEVER RESPONDS TO TACTILE AND PAINFUL STIMULI AND TRACKS WITH EYES. SHE IS NOTED TO BE SR ON MONITOR. F/C NOTED TO BE C/D/I AND DRAINING TO GRAVITY. RIGHT UPPER ARM MIDLINE NOTED TO BE PATENT AND INTACT. MINIMAL BLOOD RETURN NOTED. OG TUBE PLACEMENT VERIFIED VIA AUSCULTATION. PT TOLERATING TUBE FEEDING WELL. NO RESUDIALS NOTED AT THIS TIME. BED IN LOW LOCKED POSITION, SIDE RAILS UP X3. WILL CONTINUE TO MONITOR
[2019-05-28] MEDS: VORICONAZOLE 200 MG TABLET PO SCH ×2 (08:19→21:42)
[2019-05-28] MEDS: IV NS 0.9% 250 ML IV PRN (08:19)
[2019-05-28] MEDS: FOLIC ACID 1 MG TABLET PO SCH (08:19)
[2019-05-28] MEDS: PANTOPRAZOLE 40 MG/PACK PACK GT SCH (08:19)
[2019-05-28] MEDS: Z GUARD REMEDY 2 OZ OINT TP SCH ×2 (08:20→21:44)
[2019-05-28] MEDS: GLUCERNA SHAKE 237 ML CAN PO SCH (08:20)
[2019-05-28] MEDS: THERAHONEY GEL 1.5 OZ TUBE TP SCH (08:20)
--- NOTE | 2019-05-28 08:55 | NUR ---
FLORICULTURE TEACHER NOTES: ROUNDING (DR MOULTON) MD AT BEDSIDE AND MADE AWARE OF PT'S CURRENT CONDITION, VITALS, AND RECENT IMAGING RESULTS. VERBAL ORDERS OBTAINED TO ADVANCE PT'S ETT 3CM INDICATED BY CXR. RT MADE AWARE. PER MD "PT WILL REMAIN ON SIMV FOR TODAY AND INITIATE WEANING TRIALS ON CPAP TOMORROW"
--- NOTE | 2019-05-28 10:00 | NUR ---
RN ANESTHETIST NOTES: MD ROUNDING (DR MERRILL) MD AT BEDSIDE AND MADE AWARE OF PT'S CONDITION, VITALS, AND RECENT LABS. PT'S DAUGHTER AT BEDSIDE. DISCUSSION INITIATED IN REGARDS TO TRACH AND PEG PROCEDURE. PT'S DAUGHTER HIGHLY CONSIDERING PROCEDURE (S) HOWEVER WILL CONFIRM LATER TODAY. CHARGE NURSE MADE AWARE TO CONTACT DR. MONTENEGRO OR MARIS ONCE DECISION IS MADE. VERBAL ORDERS OBTAINED FROM MD TO TRANSFUSE 2UNIT OF PLTS IN ANTICIPATION OF PROCEDURE.
[2019-05-28] MEDS: PROSOURCE / PROSTAT (PYXIS) 30 ML UDC GT SCH ×2 (10:15→16:26)
--- NOTE | 2019-05-28 10:29 | NUR ---
HOSPICE ADMINISTRATOR NOTES: ROUNDING (DR PRICE) MD AT BEDSIDE AND MADE AWARE OF PT'S CONDITION AND RECENT LABS IN PARTICULAR PT'S NA+ LEVEL. MD STATES THAT HE WILL READJUST HER FLUIDS AND OR FREE WATER FLUSHES
--- NOTE | 2019-05-28 11:00 | NUR ---
HVAC SERVICE MANAGER NOTES: TRACH/PEG DECISION PT'S DAUGHTER HAS AGREED TO TRACH/PEG HOWEVER STATES THAT SHE WILL SIGN CONSENT FORMS ON FRIDAY. PRIMARY MD MADE AWARE
[2019-05-28] MEDS: IV D5W 1,000 ML IV PRN (11:46)
[2019-05-28] MEDS ORDERED: NEUTRA PHOS 1 POWD.PACKET GT ONE (15:30)
--- NOTE | 2019-05-28 18:15 | NUR ---
CALL RECEIVED FROM BLOOD BANK. PLTS READY. WILL TRANSFUSE 1UNIT AND ENDORSE THE OTHER TO NIGHTSHIFT RN
--- NOTE | 2019-05-28 18:48 | NUR ---
ACCOUNT ANALYST CLOSING NOTES PT REMAINS IN STABLE CONDITION ON SIMV MODE. ALL NEEDS ANTICIPATED FOR AND MET THROUGHOUT SHIFT. ALL DUE MEDS GIVEN. PRN/WOUND/AND CATHETER CARE RENDERED ORDERED. PT REPOSITION AND TURNED PER PROTOCOL. MIDLINE REMAINS PATENT AND INTACT. VSS REMAIN STABLE 15MIN POST PLT TRANSFUSION. SHE CONTINUES TOLERATING TRANSFUSION WELL. SAFETY MEASURES REMAIN IN PLACE. WILL ENDORSE TO NIGHTSHIFT RN TO COMPLETER PLT TRANSFUSION AND ALEX
--- NOTE | 2019-05-28 19:00 | NUR ---
AUTO BODY PAINTER NOTE PATIENT REPORT GIVEN BEDSIDE. PATIENT IN BED NON VERBAL, UNEASILY AROUSED. PATIENT OPENS EYES TO RIGOUROUS STIMULI LIKE TURNING AND LIGHT PAIN. PATIENT TURNED AND ORAL CARE GIVEN COPIOUS AMOUNTS OF ORAL SECRETIONS NOTED. PATIENT MIDLINE PATENT AND INTACT NO S/S OF INFECTION/INFILTRATION. PATIENT RUNNING PLATELETS AT THIS TIME TO GRAVITY. RN CONTINUE TO MONITOR ADMINISTRATION. SAFETY PRECAUTIONS IN PLACE. SIDE RAILS UP X2.
--- NOTE | 2019-05-28 20:38 | NUR ---
LACE WEAVER NOTE BOTH UNITS OF PLATELETS TRANSFUSED PER MD ORDER. NO ADVERSE REACTIONS NOTED. RN WILL CONTINUE TO MONITOR FOR CHANGES.
--- NOTE | 2019-05-28 21:00 | NUR ---
FOUNDATION RELATIONS DIRECTOR NOTE SPOKE TO DAUGHTER INGRIS ABOUT POC. DAUGHTER SEEMED PLEASED WITH PROGRESS.
[2019-05-29] VITALS (36 sets, daily range): BP systolic 84–177; BP diastolic 55–82
[2019-05-29] MEDS: BLOOD SUGAR DIAGNOSTIC 1 EACH STRIP IN SCH ×4 (00:57→17:36)
[2019-05-29] MEDS: INSULIN REGULAR, HUMAN 100 UNIT/ML 3 ML VIAL SQ PRN ×4 (01:02→17:35)
[2019-05-29] MEDS: IPRATROPIUM NEB FS 0.5 MG/2.5 ML AMPUL.NEB NEB SCH ×6 (02:45→22:42)
[2019-05-29 04:59] LABS: BASOPHILS % (AUTO) 0.1 % (0.0-2.0); HEMATOCRIT 21 % (33-45); HEMOGLOBIN 7.1 g/dL (11.5-14.8); LYMPHOCYTES # (AUTO) 0.2 /CMM (0.8-4.8); LYMPHOCYTES % (AUTO) 2.6 % (20.0-44.0); MEAN CORPUSCULAR HGB CONC 33 g/dl (31.0-36.0); MEAN CORPUSCULAR VOLUME 93 fL (82-100); MONOCYTES # (AUTO) 0.1 /CMM (0.1-1.30); MONOCYTES % (AUTO) 1.8 % (2.0-12.0); NEUTROPHILS # (AUTO) 6.4 /CMM (1.8-8.9); NEUTROPHILS % (AUTO) 95.5 % (43.0-81.0); PLATELET COUNT (AUTO) 85 /CMM (150-450); RED BLOOD CELL COUNT(AUTO) 2.29 MIL/uL (4.0-5.2); WHITE BLOOD COUNT (AUTO) 6.8 K/uL (4.3-11.0)
[2019-05-29 05:14] LABS: CALCIUM, SERUM 9.4 mg/dL (8.5-10.1); CARBON DIOXIDE 32 mmol/L (21-32); CHLORIDE 117 mmol/L (98-107); CREATININE 0.6 mg/dL (0.6-1.3); GLUCOSE 321 mg/dL (74-106); PHOSPHORUS 3.5 mg/dL (2.5-4.9); POTASSIUM 4.7 mmol/L (3.5-5.1); SODIUM SERUM 152 mmol/L (136-145); UREA NITROGEN, BLOOD 49 mg/dL (7-18)
[2019-05-29 06:01] LABS: LYMPHOCYTES % (MANUAL) 3 % (16-48); NEUTROPHILS % (MANUAL) 94 (42-76)
[2019-05-29 06:02] LABS: MONOCYTES % (MANUAL) 3 % (0-11.0)
--- NOTE | 2019-05-29 06:24 | NUR ---
RT NOTES END OF SHIFT. PT ON VENT WITH 7.5 ETT PROPERLY SECURED AT 22 CM LOYDA. CHEST RISE BILAT. SX Q2 AND PRN FOR MOD THICK PALE YELLOW SECRETIONS. VENT/ ALARMS WELL FUNCTIONING WITH AMB BAG AT BEDSIDE. NO ADVERSE EFFECTS POST TX/ SX. NO CHANGES IN PT STATUS.
--- NOTE | 2019-05-29 06:45 | NUR ---
GAME MASTER NOTE PATIENT STABLE AT THIS TIME NO S/S OF DISTRESS. PATIENT CARE RENDERED ORDERED. WOUND CARE AND BED BATH GIVEN. PATIENT TURNED Q 2 HOURS. PATIENT SHOW NO S/S OF ACUTE DISTRESS. PATIENT HR STABLE O2 STATUS STABLE PATIENT TOLERATING RX VENT SETTINGS NO S/S OF RESP DISTRESS. RN WILL ENDORESE TO AM SHIFT POC FOR ALEX. SAFETY PRECAUTIONS IN PLACE.
[2019-05-29] MEDS: ACETYLCYSTEINE 10% SOLN 400 MG/4 ML VIAL NEB SCH ×3 (07:42→22:42)
--- NOTE | 2019-05-29 07:54 | NUR ---
PT IS AWAKE BUT UNABLE TO FOLLOW COMMANDS PLACED INTO CPAP 5/ PS 12 @ 30 % ORDER. Addendum: 05/29/19 at 0757 by JAMES MORRIS RT Amended: Links added.
--- NOTE | 2019-05-29 08:00 | NUR ---
PLACED BACK TO SIMV /PS DUE TO FREQUENT APNEA ALARMING. Addendum: 05/29/19 at 0801 by JAMES MORRIS RT Amended: Links added.
[2019-05-29] MEDS: VORICONAZOLE 200 MG TABLET PO SCH ×2 (08:11→20:59)
[2019-05-29] MEDS: Z GUARD REMEDY 2 OZ OINT TP SCH ×2 (08:11→21:00)
[2019-05-29] MEDS: PROSOURCE / PROSTAT (PYXIS) 30 ML UDC GT SCH ×2 (08:11→16:24)
[2019-05-29] MEDS: THERAHONEY GEL 1.5 OZ TUBE TP SCH (08:12)
[2019-05-29] MEDS: GLUCERNA SHAKE 237 ML CAN PO SCH (08:12)
[2019-05-29] MEDS: PANTOPRAZOLE 40 MG/PACK PACK GT SCH (08:14)
[2019-05-29] MEDS: FOLIC ACID 1 MG TABLET PO SCH (08:14)
--- NOTE | 2019-05-29 08:47 | NUR ---
received pt from night coordinator, lethargic, does not follow commands, opens eyes, tracks at times, SR, on vent, lungs congested, anasarca, OG to feeding high residual, f/c OK output, failed CPAP mode, v/s stable, no pain, pt turned and repositioned.
[2019-05-29] MEDS: LISINOPRIL (10MG) 10 MG TABLET PO SCH (10:30)
[2019-05-29] MEDS: IV D5W 1,000 ML IV PRN (13:03)
--- NOTE | 2019-05-29 16:10 | NUR ---
pt is resting in the bed, lethargic, does not follow commands, SR, v/s stable, no pain, pt cleane, changed and repositioned q2hrs, daughter at the bedside.
[2019-05-30] VITALS (47 sets, daily range): BP systolic 110–177; BP diastolic 55–104
[2019-05-30] MEDS: INSULIN REGULAR, HUMAN 100 UNIT/ML 3 ML VIAL SQ PRN ×5 (00:43→23:53)
[2019-05-30] MEDS: BLOOD SUGAR DIAGNOSTIC 1 EACH STRIP IN SCH ×5 (00:45→23:53)
[2019-05-30] MEDS: IV D5W 1,000 ML IV PRN (03:43)
[2019-05-30] MEDS: IPRATROPIUM NEB FS 0.5 MG/2.5 ML AMPUL.NEB NEB SCH ×6 (03:46→23:02)
--- NOTE | 2019-05-30 05:45 | NUR ---
RN NOTES PATIENT IN BED, LYING COMFORTABLY WITH EYES CLOSED. IN NO APPARENT DISTRESS, BREATHING EVEN AND UNLABORED. VENT SETTING WELL TOLERATED. PATIENT IS LETHARGIC, OPENS EYES WITHOUT EYE TRACKING. NO PHYSICAL MANIFESTATION OF PAIN OR DISCOMFORT. NO SIGNIFICANT CHANGE OF CONDITION. NO BOWEL MOVEMENT. VITAL SIGNS WNL. KEPT CLEAN AND DRY. WILL ENDORSE TO NEXT SHIFT FOR CONTINUITY OF CARE.
[2019-05-30] MEDS: ACETYLCYSTEINE 10% SOLN 400 MG/4 ML VIAL NEB SCH ×3 (07:42→23:02)
--- NOTE | 2019-05-30 08:30 | NUR ---
Pt seen & examined by Dr. Moeller, updated about pt status.
[2019-05-30] MEDS: GLUCERNA SHAKE 237 ML CAN PO SCH (09:00)
--- NOTE | 2019-05-30 09:00 | NUR ---
Pt seen & examined by Dr. Lawrence, per MD dtr to sign consent for trach & PEG placement leon.
[2019-05-30] MEDS: PROSOURCE / PROSTAT (PYXIS) 30 ML UDC GT SCH ×2 (09:12→16:37)
[2019-05-30] MEDS: FOLIC ACID 1 MG TABLET PO SCH (09:12)
[2019-05-30] MEDS: PANTOPRAZOLE 40 MG/PACK PACK GT SCH (09:12)
[2019-05-30] MEDS: VORICONAZOLE 200 MG TABLET PO SCH ×2 (09:12→20:37)
[2019-05-30] MEDS: LISINOPRIL (10MG) 10 MG TABLET PO SCH (09:13)
[2019-05-30] MEDS: THERAHONEY GEL 1.5 OZ TUBE TP SCH (09:13)
[2019-05-30] MEDS: Z GUARD REMEDY 2 OZ OINT TP SCH ×2 (09:13→21:01)
--- NOTE | 2019-05-30 09:45 | NUR ---
Pt seen & examined by Dr. Dobbs, updated about pt status.
[2019-05-30 09:52] LABS: BASOPHILS % (AUTO) 0.1 % (0.0-2.0); EOSINOPHILS % (AUTO) 0.1 % (0.0-6.0); HEMATOCRIT 21 % (33-45); LYMPHOCYTES # (AUTO) 0.1 /CMM (0.8-4.8); LYMPHOCYTES % (AUTO) 3.1 % (20.0-44.0); MEAN CORPUSCULAR HGB CONC 33 g/dl (31.0-36.0); MEAN CORPUSCULAR VOLUME 93 fL (82-100); MONOCYTES # (AUTO) 0.1 /CMM (0.1-1.30); MONOCYTES % (AUTO) 1.9 % (2.0-12.0); NEUTROPHILS # (AUTO) 4.5 /CMM (1.8-8.9); NEUTROPHILS % (AUTO) 94.8 % (43.0-81.0); RED BLOOD CELL COUNT(AUTO) 2.29 MIL/uL (4.0-5.2); WHITE BLOOD COUNT (AUTO) 4.8 K/uL (4.3-11.0)
[2019-05-30 10:04] LABS: ALANINE AMINOTRANSFERASE 95 U/L (12-78); ALKALINE PHOSPHATASE 507 U/L (46-116); ASPARTATE AMINOTRANSFERASE 40 U/L (15-37); BILIRUBIN,TOTAL 0.3 mg/dL (0.2-1.0); CALCIUM, SERUM 9.2 mg/dL (8.5-10.1); CARBON DIOXIDE 32 mmol/L (21-32); CHLORIDE 113 mmol/L (98-107); CREATININE 0.5 mg/dL (0.6-1.3); GLUCOSE 235 mg/dL (74-106); MAGNESIUM 1.5 mg/dL (1.8-2.4); PHOSPHORUS 2.3 mg/dL (2.5-4.9); POTASSIUM 4.1 mmol/L (3.5-5.1); SODIUM SERUM 149 mmol/L (136-145); TOTAL PROTEIN, SERUM 4.2 g/dL (6.4-8.2); UREA NITROGEN, BLOOD 46 mg/dL (7-18)
[2019-05-30 10:09] LABS: ALBUMIN 1.1 g/dL (3.4-5.0)
[2019-05-30 10:27] LABS: PLATELET COUNT (AUTO) 34 /CMM (150-450)
--- NOTE | 2019-05-30 10:40 | NUR ---
Dr. Burris made aware re: Hgb 7, Hct 21, platelet 34. Per , pls transfuse 1 unit of PRBC & 1 unit of platelet. made aware that pt is for poss trach & PEG placement leon.
--- NOTE | 2019-05-30 10:41 | NUR ---
Dr. Moeller made aware re: Na 149, Mg 1.5, P 2.3, Alb 1.1... awaiting for response. Addendum: 05/30/19 at 1828 by BETY BARROSO RN [address] Moeller continue current IVF and give 2gms of Mg IV.
[2019-05-30] MEDS: Magnesium 1GM/D5W 100ML PREMIX 100 ML IV SCH ×2 (12:05→13:06)
[2019-05-30 12:14] LABS: BAND % (MANUAL) 8 % (0.0-5.0); LYMPHOCYTES % (MANUAL) 4 % (16-48); MONOCYTES % (MANUAL) 2 % (0-11.0); NEUTROPHILS % (MANUAL) 86 (42-76)
--- NOTE | 2019-05-30 13:00 | NUR ---
Daughter signed consent for trach & PEG placement including anesthesia consent x2, placed in the chart.
--- NOTE | 2019-05-30 14:34 | NUR ---
s/p transfusion of 1 unit of platelet, pt tolerated well w/ no blood transfusion reaction noted.
[2019-05-30] MEDS ORDERED: NEUTRA PHOS 1 POWD.PACKET GT ONE (16:00)
[2019-05-30] MEDS: GLUCERNA 1.2 1,000 ML BOTTLE NG PRN (16:37)
--- NOTE | 2019-05-30 18:00 | NUR ---
Dr. Lawrence made aware that pt's dtr signed consent for trach/PEG placement.
--- NOTE | 2019-05-30 18:29 | NUR ---
MALT HOUSE LOADER CLOSING NOTES: Pt resting comfortably on bed, not in any distress. On MV via ETT, tolerating SIMV mode, sating 98%. SR on telemonitor. VILMA midline access kept patent & intact w/ no s/sx of infection/infiltration noted. OGT kept patent & intact, tolerating GTF x 60 cc/hr w/ no high residual noted w/in shift. FC draining to BSB w/ adequate UOP. Wound care done as ordered, dtr saw pt's wound on sacral. Pt turned & repositioned q2h & PRN. Safety precaution kept in place at all times w/ bed in lowest & locked pos. Call light w/in reach. Will endorse to PM RN for ALEX.
--- NOTE | 2019-05-30 19:30 | NUR ---
ICU NOTES RECEIVED PT. ON VENT VIA ORAL ETT ON SIMV OF 4,RESP 15,SAT 100% ON 30% FIO2.ON TUBE FEEDING OF GLUCERNA AT 60 ML/HR.WILL BE NPO AFTER M/N ,FOR EGD AND TRACH IN AM.OPENS EYES TO TACTILE STIMULATION AND WHEN NAME CALLED.TRACKS,EXTREMITIES FLACCID.
[2019-05-30] MEDS: Z GUARD REMEDY 2 OZ OINT TP PRN (20:38)
--- NOTE | 2019-05-30 22:00 | NUR ---
ICU NOTES INCONTINENT OF SMALL AMT BROWN LOOSE STOOL.CLEANSED,COMPLETE BED BATH GIVEN.WOUND PICTURES TAKEN ,SEE PROGRESS NOTES.
[2019-05-31] VITALS (26 sets, daily range): BP systolic 100–176; BP diastolic 56–107
--- NOTE | 2019-05-31 | NUR ---
ICU NOTES NPO AFTER MIDNIGHT,FREE H2O NOT GIVEN THROUGH G-TUBE AND TUBE FEEDING DC'D.MONITOR SHOWS SINUS RHYTHM.REPOSITION AND TURNED.
[2019-05-31] MEDS: IV D5W 1,000 ML IV PRN ×2 (01:02→15:34)
[2019-05-31] MEDS: IPRATROPIUM NEB FS 0.5 MG/2.5 ML AMPUL.NEB NEB SCH ×5 (03:35→19:51)
--- NOTE | 2019-05-31 04:07 | NUR ---
RT NOTES PATIENT WITH ET TUBE 7.5 @23CM LIP PATENT, AND SECURED. BILATERAL BREATH SOUNDS WITH EQUAL CHEST RISE. ALARMS ON AND AUDIBLE. AMBU BAG BY THE BEDSIDE. VENT PLUGGED IN TO RED OUTLET. SX SMALL THICK YELLOW SECRETIONS. NO SOB NOTED AT THIS TIME. WILL CONTINUE TO MONITOR. Addendum: 05/31/19 at 0408 by TAIWO MELO RT Amended: Links added.
[2019-05-31 04:56] LABS: BASOPHILS % (AUTO) 0.1 % (0.0-2.0); HEMATOCRIT 27 % (33-45); LYMPHOCYTES # (AUTO) 0.1 /CMM (0.8-4.8); LYMPHOCYTES % (AUTO) 3.4 % (20.0-44.0); MEAN CORPUSCULAR HGB CONC 34 g/dl (31.0-36.0); MEAN CORPUSCULAR VOLUME 90 fL (82-100); MONOCYTES # (AUTO) 0.1 /CMM (0.1-1.30); MONOCYTES % (AUTO) 2.1 % (2.0-12.0); NEUTROPHILS % (AUTO) 94.4 % (43.0-81.0); PLATELET COUNT (AUTO) 63 /CMM (150-450); RED BLOOD CELL COUNT(AUTO) 2.97 MIL/uL (4.0-5.2); WHITE BLOOD COUNT (AUTO) 4.2 K/uL (4.3-11.0)
[2019-05-31 05:19] LABS: ALANINE AMINOTRANSFERASE 85 U/L (12-78); ALKALINE PHOSPHATASE 564 U/L (46-116); ASPARTATE AMINOTRANSFERASE 45 U/L (15-37); BILIRUBIN,TOTAL 0.2 mg/dL (0.2-1.0); CALCIUM, SERUM 9.2 mg/dL (8.5-10.1); CARBON DIOXIDE 33 mmol/L (21-32); CHLORIDE 112 mmol/L (98-107); CREATININE 0.5 mg/dL (0.6-1.3); GLUCOSE 285 mg/dL (74-106); PHOSPHORUS 2.5 mg/dL (2.5-4.9); POTASSIUM 4.1 mmol/L (3.5-5.1); SODIUM SERUM 148 mmol/L (136-145); TOTAL PROTEIN, SERUM 4.4 g/dL (6.4-8.2); UREA NITROGEN, BLOOD 46 mg/dL (7-18)
[2019-05-31 05:28] LABS: ALBUMIN 1.3 g/dL (3.4-5.0)
[2019-05-31 06:03] LABS: BAND % (MANUAL) 4 % (0.0-5.0); LYMPHOCYTES % (MANUAL) 4 % (16-48); MONOCYTES % (MANUAL) 4 % (0-11.0); NEUTROPHILS % (MANUAL) 89 (42-76)
[2019-05-31] MEDS: INSULIN REGULAR, HUMAN 100 UNIT/ML 3 ML VIAL SQ PRN ×3 (06:26→17:48)
[2019-05-31] MEDS: BLOOD SUGAR DIAGNOSTIC 1 EACH STRIP IN SCH ×3 (06:29→17:46)
--- NOTE | 2019-05-31 07:01 | NUR ---
ICU NOTES VITAL SIGNS STABLE.MONITOR SHOWS NSR.TOLERATING SIMV WELL.URINE OUTPUT ADEQUATE.
--- NOTE | 2019-05-31 07:15 | NUR ---
ICU/RN AM SHIFT INITIAL NOTES RECEIVED PT ASLEEP IN BED, PT OPEN EYES, TRACTS, NO ACUTE DISTRESS OR CHANGE OF CONDITION NOTED. PT ON VENTILATOR THROUGH ETT SIMV MODE, WITH TUBE TIP ON LIP 23 CM. RESPIRATIONS EVEN AND UNLABORED, LUNG SOUNDS CLEAR, SATURATING @ 100%. ON TELE MONITORING, SINUS RHYTHM, HR 62. PT COOL TO THE TOUCH, WARMING BLANKET PLACED. PITTING GENERALIZED EDEMA NOTED. MIDLINE WITH ON GOING INFUSION OF D5W @ 70CC/HR, PATENT WITH NO S/S OF INFECTION. TUBE FEEDING HELD SINCE MIDNIGHT FOR SCHEDULED EGD WITH PEG PLACEMENT TODAY SCHEDULED AT 1300 TODAY. VILLANUEVA CATHETER INTACT WITH CLOUDY LIGHT YELLOW URINE OUTPUT. PT IS COMFORTABLE, SCHEDULED AM MEDS TO BE GIVEN. CL WITHIN REACHED AND SAFETY MAINTAINED. ON GOING MONITORING.
[2019-05-31] MEDS: ACETYLCYSTEINE 10% SOLN 400 MG/4 ML VIAL NEB SCH ×2 (07:32→15:01)
[2019-05-31] MEDS: GLUCERNA SHAKE 237 ML CAN PO SCH (07:51)
--- NOTE | 2019-05-31 08:35 | NUR ---
ICU/RN ROUNDS - DR. MERRILL UPDATED PT'S CONDITION. PT SEEN & EXAMINED BY DR. MERRILL WITH PT'S DAUGHTER AT BEDSIDE, NO NEW ORDERS RECEIVED AT THIS TIME.
[2019-05-31] MEDS: FOLIC ACID 1 MG TABLET PO SCH (09:04)
[2019-05-31] MEDS: PROSOURCE / PROSTAT (PYXIS) 30 ML UDC GT SCH ×2 (09:04→17:00)
[2019-05-31] MEDS: VORICONAZOLE 200 MG TABLET PO SCH ×2 (09:05→21:48)
[2019-05-31] MEDS: PANTOPRAZOLE 40 MG/PACK PACK GT SCH (09:05)
[2019-05-31] MEDS: Z GUARD REMEDY 2 OZ OINT TP SCH ×2 (09:05→21:48)
[2019-05-31] MEDS: LISINOPRIL (10MG) 10 MG TABLET PO SCH (09:05)
[2019-05-31] MEDS: THERAHONEY GEL 1.5 OZ TUBE TP SCH (09:06)
--- NOTE | 2019-05-31 09:10 | NUR ---
ICU/RN ROUNDS - DR. MOULTON PT SEEN & EXAMINED BY DR. MOULTON WITH PT'S DAUGHTER AT BEDSIDE. NO NEW ORDERS RECEIVED. MONITORING CONTINUED.
--- NOTE | 2019-05-31 13:06 | NUR ---
ICU/RN: RECEIVED REPORT FROM JEVON. PT RESTING COMFORTABLY IN BED. IV FLUIDS INFUSING. PT PENDING PEG PLACEMENT. CONSENT IN CHART. VSS.
--- NOTE | 2019-05-31 13:06 | NUR ---
ICU/PARACHUTE MENDER OF CARE NO ACUTE CHANGE OF CONDITION NOTED SINCE CARED FOR PT IN THE BEGINNING OF SHIFT. PT ENDORSED TO ICU NURSE ALISSA TO CONTINUE CARE.
[2019-05-31] MEDS ORDERED: ANESTHESIA TRAY IN PYXIS 1 EA TRAY MC ONE (14:50)
--- NOTE | 2019-05-31 15:40 | NUR ---
ICU/RN: OR TEAM AT BEDSIDE FOR PEG TUBE PLACEMENT. CONSENT IN CHART. CHECKLIST COMPLETED. WILL CONTINUE TO MONITOR.
--- NOTE | 2019-05-31 16:05 | NUR ---
ICU/RN: PEG TUBE PLACED. NO S/S OF BLEEDING NOTED. VSS. ORDERS RECEIVED TO RESUME MEDICATIONS AND FLUIDS AT 1999. TUBE FEEDING CAN RESUME IN AM, HOWEVER PT SCHEDULED FOR TRACH PLACEMENT. WILL CONTINUE TO MONITOR AND ASSESS.
--- NOTE | 2019-05-31 19:27 | NUR ---
ICU/RN: ENDING NOTES,AM REPORT ENDORSED TO NIGHT NURSE FOR ALEX. PT INTUBATED ON SETTINGS ORDERED. NO DISTRESS. VSS. PEG TUBE PLACED, TRACH PENDING FOR TOMORROW. PT WILL RESUME NPO. CONSENT IN CHART. CHECKLIST NEEDS TO BE COMPLETED. ALL NEEDS ATTENDED TO, SAFETY MEASURES TAKEN, BED IN LOW POSITION, SIDE RAILS UP, CALL LIGHT WITHIN REACH.
[2019-06-01] VITALS (32 sets, daily range): BP systolic 108–155; BP diastolic 51–98
[2019-06-01] MEDS: IPRATROPIUM NEB FS 0.5 MG/2.5 ML AMPUL.NEB NEB SCH ×7 (00:27→22:53)
[2019-06-01] MEDS: ACETYLCYSTEINE 10% SOLN 400 MG/4 ML VIAL NEB SCH ×4 (00:27→22:53)
[2019-06-01] MEDS: BLOOD SUGAR DIAGNOSTIC 1 EACH STRIP IN SCH ×5 (00:51→23:25)
[2019-06-01] MEDS: INSULIN REGULAR, HUMAN 100 UNIT/ML 3 ML VIAL SQ PRN ×4 (01:00→23:27)
--- NOTE | 2019-06-01 04:36 | NUR ---
PT REC'D ORALLY INTUBATED VIA ETT SZ 7.5 SECURED @ 23CM AT THE LIP ON [facility] VENT ON SIMV MODE. NO RESP DISTRESS OR SOB NOTED. SX'D FOR THICK SMALL AMT OF PALE YELLOW SECRETIONS. ALARMS ARE SET AND AUDIBLE. VENT PLUGGED INTO RED OUTLET. AMBU BAG BEDSIDE. WILL CONTINUE TO MONITOR. Addendum: 06/01/19 at 0441 by GALE KAPLAN RT Amended: Links added.
[2019-06-01 04:54] LABS: BASOPHILS % (AUTO) 0.1 % (0.0-2.0); HEMATOCRIT 27 % (33-45); LYMPHOCYTES # (AUTO) 0.2 /CMM (0.8-4.8); LYMPHOCYTES % (AUTO) 5.3 % (20.0-44.0); MEAN CORPUSCULAR HGB CONC 34 g/dl (31.0-36.0); MEAN CORPUSCULAR VOLUME 90 fL (82-100); MONOCYTES # (AUTO) 0.1 /CMM (0.1-1.30); MONOCYTES % (AUTO) 2.5 % (2.0-12.0); NEUTROPHILS % (AUTO) 92.1 % (43.0-81.0); RED BLOOD CELL COUNT(AUTO) 2.97 MIL/uL (4.0-5.2); WHITE BLOOD COUNT (AUTO) 4.3 K/uL (4.3-11.0)
[2019-06-01 04:59] LABS: CALCIUM, SERUM 8.9 mg/dL (8.5-10.1); CARBON DIOXIDE 31 mmol/L (21-32); CHLORIDE 109 mmol/L (98-107); CREATININE 0.5 mg/dL (0.6-1.3); GLUCOSE 185 mg/dL (74-106); POTASSIUM 3.8 mmol/L (3.5-5.1); SODIUM SERUM 144 mmol/L (136-145); UREA NITROGEN, BLOOD 44 mg/dL (7-18)
[2019-06-01 05:05] LABS: PLATELET COUNT (AUTO) 50 /CMM (150-450)
[2019-06-01 05:53] LABS: LYMPHOCYTES % (MANUAL) 6 % (16-48)
[2019-06-01 05:54] LABS: MONOCYTES % (MANUAL) 1 % (0-11.0); NEUTROPHILS % (MANUAL) 93 (42-76)
[2019-06-01] MEDS: IV D5W 1,000 ML IV PRN ×2 (06:06→20:31)
--- NOTE | 2019-06-01 06:41 | NUR ---
PT REMAINS IN NO ACUTE DISTRESS IN BED. PT DID NOT HAVE ANY SIGNIFICANT CHANGE IN CONDITION DURING SHIFT. PT TOLERATED FREE WATER FLUSH Q6H VIA GTUBE. GTUBE SITE CLEAN DRY INTACT AND PATENT. PT TOLERATED VENT SETTING WELL. PT IS SCHEDULED TO HAVE TRACH PLACED TODAY @ 1530. ALL NEEDS MET, ALL ORDERS CARRIED OUT. WILL ENDORSE CARE TO AM RN FOR CONTINUITY OF CARE.
--- NOTE | 2019-06-01 07:10 | NUR ---
RN NOTES RECEIVED PT ON BED, TRIES TO OPEN HER EYES TO VERBAL STIMULI, ON VENTILATOR THROUGH ETT SIMV MODE, WITH TUBE TIP ON LIP 23 CM. RESPIRATIONS EVEN AND UNLABORED, LUNG SOUNDS CLEAR, SATURATING @ 100%. ON TELE MONITORING, SINUS RHYTHM, HR IN 80'. PITTING GENERALIZED EDEMA NOTED. D5W @ 70CC/HR RUNNING VIA R UPPER ARM MIDLINE, SITE CLEAN, DRY AND INTACT, PEG TUBE INTACT, PT IS NPO AT THIS, VILLANUEVA CATHETER INTACT WITH CLOUDY LIGHT YELLOW URINE OUTPUT. PT IS COMFORTABLE, SR UP x3, CALL LIGHT WITHIN EASY REACH AND SAFETY MAINTAINED. CONTINUE TO MONITOR .
--- NOTE | 2019-06-01 07:21 | NUR ---
NOTIFIED DR. MICHEL THAT PT HAS PLATELETS @ 50K AND IF WE NEEDED TO TRANSFUSE 1 UNIT OF PLATELETS. PER DR. MICHEL PLATELET @ 50K IS OK FOR PROCEDURE, NO NEED FOR TRANSFUSION.
[2019-06-01] MEDS: PROSOURCE / PROSTAT (PYXIS) 30 ML UDC GT SCH ×2 (08:33→16:53)
[2019-06-01] MEDS: PANTOPRAZOLE 40 MG/PACK PACK GT SCH (08:34)
[2019-06-01] MEDS: FOLIC ACID 1 MG TABLET PO SCH (08:34)
[2019-06-01] MEDS: LISINOPRIL (10MG) 10 MG TABLET PO SCH (08:34)
[2019-06-01] MEDS: THERAHONEY GEL 1.5 OZ TUBE TP SCH (08:35)
[2019-06-01] MEDS: Z GUARD REMEDY 2 OZ OINT TP SCH ×2 (08:35→21:38)
[2019-06-01] MEDS: VORICONAZOLE 200 MG TABLET PO SCH ×2 (08:36→21:29)
--- NOTE | 2019-06-01 12:00 | NUR ---
RN NOTES ORAL AND ET SUCTIONING DONE, VSS STABLE , CONTINUE TO MONITOR .
--- NOTE | 2019-06-01 15:37 | NUR ---
RN NOTES SUPPORTIVE FAMILY AT THE BEDSIDE, VSS STABLE, CONTINUE TO MONITOR.
--- NOTE | 2019-06-01 16:00 | NUR ---
RN NOTES SURGERY CANCELLED PER OR , DR. EATON NOTIFED, TF STARTED VIA PEG TUBE PER . OK TO KEEP PT ON D5W AT 70CC/HR FOR NOW. PER DR EATON ORDER .
[2019-06-01] MEDS: GLUCERNA 1.2 1,000 ML BOTTLE NG PRN (16:52)
--- NOTE | 2019-06-01 17:45 | NUR ---
RT Noticeable audible leak heard with decreased VT return. Source of problem appeared to be a ruptured charter pilot balloon line due to pt bitting. Production Tester balloon repair kit used, DIRECT MARKETING INTERN cuff pressure noted. Equal bilateral breathe sounds and chest rise noted. Leaking has ceased and adequate VT observed. No SOB or respiratory distress noted. LORA Ochoa and charge nurse Jazmyne notified and aware. Addendum: 06/01/19 at 1806 by KATY STEPHEN RT Amended: Links added.
--- NOTE | 2019-06-01 18:17 | NUR ---
RN NOTES VSS KEERTHI PHILLIPS CURRENT VENT SETTING WELL ,TF AT 45CC/HR RUNNING VIA PEG TUBE , TOLERATING WELL, NO DISTRESS NOTED, WILL ENDOSE TO MANAGER OF DISTRIBUTION NURSE FOR CONTINUITY OF CARE.
--- NOTE | 2019-06-01 19:30 | NUR ---
EYEDOTTER NOTE PATIENT IN BED NON VERBAL, BUT OPENS EYES AND TRACKS. PATIENT TOLERATING VENT SETTINGS AND RECEIVING FULL TV. NO LEAKS NOTED ON THE BONE CHAR PULLER BALLOON. PATIENT BREATHING EVEN AND UNLABORED NO S/S OF RESP DISTRESS. PATIENT GIVEN ORAL CARE. MINIMAL RESIDUAL NOTED ON PEG TUBE. PATIENT TOLERATING FEEDING WELL. PATIENT HAS VILMA MIDLINE PATENT AND INTACT WITH 75 ML/HR D5W. NO S/S OF INFECTION. PATIENT ON CURRENT BEAR HUGGER WITH TEMP 96.7. RN WILL CONTINUE TO MONITOR FOR CHANGE NO S/S OF ACUTE DISTRESS NOTED AT THIS TIME. SAFETY AND ASPIRATION PRECAUTIONS IN PLACE.
--- NOTE | 2019-06-01 21:30 | NUR ---
REAL ESTATE RENTAL AGENT NOTE SPOKE TO DTR INGRIS ABOUT POC FOR TONIGHT AND TOMORROW. DTR VERBALIZES UNDERSTANDING. PATIENT WILL BE NPO AT MIDNIGHT FOR TRACH PLACEMENT
[2019-06-01] MEDS: Z GUARD REMEDY 2 OZ OINT TP PRN (21:31)
[2019-06-02] VITALS (35 sets, daily range): BP systolic 96–156; BP diastolic 56–89
[2019-06-02] MEDS: IPRATROPIUM NEB FS 0.5 MG/2.5 ML AMPUL.NEB NEB SCH ×6 (03:42→23:25)
[2019-06-02] MEDS: BLOOD SUGAR DIAGNOSTIC 1 EACH STRIP IN SCH ×3 (05:52→18:10)
[2019-06-02] MEDS: INSULIN REGULAR, HUMAN 100 UNIT/ML 3 ML VIAL SQ PRN ×3 (05:53→18:11)
--- NOTE | 2019-06-02 06:52 | NUR ---
LUMP MAKER NOTE PATIENT TOLERATED THE NIGHT WELL ALL VITAL SIGNS STABLE NO S/S OF LEAKAGE ON THE TEEN COUNSELOR BALLOON. PATIENT GETTING ALL TIDAL VOLUME TOLERATING RX VENT SETTINGS. ALL CARE RENDERED ORDERED. SAFETY PRECAUTIONS IN PLACE. WILL ENDORSE POC TO AM FOR ALEX.
--- NOTE | 2019-06-02 07:15 | NUR ---
ICU/RN: Report received from previous nurse. Pt tolerating current vent settings; pt awake, alert tracking. Able to follow commands to communicate by blinking. PEG clamped for possible tracheostomy today, pt NPO. Weeping edema noted through extremities, wound care rendered.
[2019-06-02] MEDS: ACETYLCYSTEINE 10% SOLN 400 MG/4 ML VIAL NEB SCH ×3 (07:53→23:25)
[2019-06-02 07:55] LABS: HEMATOCRIT 27 % (33-45); HEMOGLOBIN 9.2 g/dL (11.5-14.8); LYMPHOCYTES # (AUTO) 0.3 /CMM (0.8-4.8); LYMPHOCYTES % (AUTO) 5.8 % (20.0-44.0); MEAN CORPUSCULAR HGB CONC 34 g/dl (31.0-36.0); MEAN CORPUSCULAR VOLUME 90 fL (82-100); MONOCYTES # (AUTO) 0.1 /CMM (0.1-1.30); MONOCYTES % (AUTO) 2.7 % (2.0-12.0); NEUTROPHILS # (AUTO) 4.1 /CMM (1.8-8.9); NEUTROPHILS % (AUTO) 91.5 % (43.0-81.0); PLATELET COUNT (AUTO) 56 /CMM (150-450); RED BLOOD CELL COUNT(AUTO) 3.05 MIL/uL (4.0-5.2); WHITE BLOOD COUNT (AUTO) 4.5 K/uL (4.3-11.0)
--- NOTE | 2019-06-02 08:06 | NUR ---
ICU/RN: Spoke with Dr Ronquillo; relayed imaging results regarding increased amount of free air compared to yesterday s/p peg insertion 06/10/19. New orders noted and carried out.
--- NOTE | 2019-06-02 08:15 | NUR ---
ICU/RN: Dr Payne at bedside; discussing POC with daughter. Informed of imaging results. air sealing technician at bedside; KUB with gastrografin performed. Daughter updated on pt status. Pending call back from Dr Gage regarding possible tracheostomy today.
[2019-06-02] MEDS ORDERED: DIATR MEGLU/DIATRIZOATE SODIUM 30 ML BOTTLE (GASTROGRAPHIN) ONE (08:21)
[2019-06-02 08:33] LABS: ALANINE AMINOTRANSFERASE 53 U/L (12-78); ALKALINE PHOSPHATASE 519 U/L (46-116); ASPARTATE AMINOTRANSFERASE 41 U/L (15-37); BILIRUBIN,TOTAL 0.2 mg/dL (0.2-1.0); CALCIUM, SERUM 9.3 mg/dL (8.5-10.1); CARBON DIOXIDE 31 mmol/L (21-32); CHLORIDE 105 mmol/L (98-107); CREATININE 0.6 mg/dL (0.6-1.3); GLUCOSE 197 mg/dL (74-106); MAGNESIUM 1.7 mg/dL (1.8-2.4); PHOSPHORUS 2.9 mg/dL (2.5-4.9); SODIUM SERUM 140 mmol/L (136-145); TOTAL PROTEIN, SERUM 4.2 g/dL (6.4-8.2); UREA NITROGEN, BLOOD 45 mg/dL (7-18)
[2019-06-02 08:51] LABS: BAND % (MANUAL) 1 % (0.0-5.0); LYMPHOCYTES % (MANUAL) 11 % (16-48); MONOCYTES % (MANUAL) 7 % (0-11.0); NEUTROPHILS % (MANUAL) 81 (42-76)
[2019-06-02] MEDS: PANTOPRAZOLE 40 MG/PACK PACK GT SCH (09:00)
[2019-06-02] MEDS: LISINOPRIL (10MG) 10 MG TABLET PO SCH (09:00)
[2019-06-02] MEDS: PROSOURCE / PROSTAT (PYXIS) 30 ML UDC GT SCH ×2 (09:00→16:06)
[2019-06-02] MEDS: FOLIC ACID 1 MG TABLET PO SCH (09:00)
[2019-06-02] MEDS: VORICONAZOLE 200 MG TABLET PO SCH (09:00)
[2019-06-02] MEDS: Z GUARD REMEDY 2 OZ OINT TP SCH ×2 (09:52→21:05)
[2019-06-02] MEDS: THERAHONEY GEL 1.5 OZ TUBE TP SCH (09:54)
--- NOTE | 2019-06-02 10:00 | NUR ---
[employer] NOTES: Rec'd report from Eliud PAULINO for ALEX. Pt resting comfortably on bed, not in any distress. Tolerating SIMV mode via ETT, sating 98%. SR on telemonitor. IV line access patent & intact w/ D5W x 70cc/hr infusing well. FC draining to yellowish UOP. GT patent & intact, confirmed via KUB w/ gastrograffin but kept clamped for now. Awaiting response from Dr. Gage re: trach placement. Dtr at bedside. Safety precaution in place w/ bed in lowest & locked pos. Call light w/in reach. Will cont to monitor & attend pt needs.
[2019-06-02] MEDS: Magnesium 1GM/D5W 100ML PREMIX 100 ML IV SCH ×2 (10:36→11:58)
--- NOTE | 2019-06-02 15:42 | NUR ---
Confirmed w/ Dr. Gage that trach placement will be scheduled on Friday06/04/19. CN & dtr made aware.
[2019-06-02] MEDS: IV D5W 1,000 ML IV PRN (15:44)
[2019-06-02] MEDS: GLUCERNA 1.2 1,000 ML BOTTLE NG PRN (15:57)
--- NOTE | 2019-06-02 16:00 | NUR ---
Dr. Payne made aware that pt's trach placement will be on 06/04/19. Per MD, may resume GTF.
[2019-06-02] MEDS ORDERED: DEXTROSE 50%-WATER 50 ML DISP.SYRIN IV PRN (18:00)
--- NOTE | 2019-06-02 18:40 | NUR ---
KINDERGARTEN TEACHER ASSISTANT CLOSING NOTES: Pt resting comfortably on bed, not in any distress. Tolerated SIMV mode via ETT, no respiratory distress. Remains SR on telemonitor. IV line access kept patent & intact w/ D5W x 70cc/hr infusing well. FC draining to yellowish UOP. GT kept patent & intact, restarted on GTF at 4pm x 30 cc/hr infusing well w/ no high residual noted w/in shift. Ginny haji kept on d/t hypothermia. Had 1 liquidy large amount of brownish stool. Safety precaution kept in place at all times w/ bed in lowest & locked pos. Call light w/in reach. Will endorse to PM RN for ALEX.
--- NOTE | 2019-06-02 19:11 | NUR ---
RECEIVED PT IN NO ACUTE DISTRESS IN BED. PT IS A/O X 1. PT IS ON O2 VIA ETT @ 7.5/23 AT THE LIP. PT IS ON MECHANICAL VENT WITH SETTING @ SIMV 4, TV 400, FIO2 30%, PEEP 5. PT NOT SHOWING ANY S/S OF SOB, DIFFICULTY BREATHING OR PAIN AT THIS TIME. PT HAS GTUBE THAT IS CLEAN DRY INTACT AND PATENT WITH FREE WATER FLUSH AND 0 RESIDUAL.. PT IS ON FEEDING GLUCERNIA @ 30ML/HR WITH A GOAL OF 60ML/HR. PT IS ON TELE WITH SR ON THE MONITOR. PT HAS F/C THAT IS CLEAN DRY INTACT AND PATENT WITH YELLOW URINE DRAINING. PT HAS VILMA MIDLINE THAT IS CLEAN DRY INTACT AND PATENT WITH D5W @ 70ML/HR. BED IN LOW LOCK POSITION WITH RAILS UP X 2. CALL LIGHT WITHIN REACH AND ALL SAFETY MEASURES ENSURED AND CARRIED OUT. WILL CONTINUE TO MONITOR PT.
[2019-06-03] VITALS (41 sets, daily range): BP systolic 115–164; BP diastolic 44–114
[2019-06-03] MEDS: INSULIN REGULAR, HUMAN 100 UNIT/ML 3 ML VIAL SQ PRN ×4 (00:27→17:33)
[2019-06-03] MEDS: BLOOD SUGAR DIAGNOSTIC 1 EACH STRIP IN SCH ×4 (00:28→17:32)
[2019-06-03] MEDS: IPRATROPIUM NEB FS 0.5 MG/2.5 ML AMPUL.NEB NEB SCH ×6 (03:02→23:12)
[2019-06-03 04:56] LABS: HEMATOCRIT 26 % (33-45); HEMOGLOBIN 8.8 g/dL (11.5-14.8); LYMPHOCYTES # (AUTO) 0.2 /CMM (0.8-4.8); MEAN CORPUSCULAR HGB CONC 33 g/dl (31.0-36.0); MEAN CORPUSCULAR VOLUME 89 fL (82-100); MONOCYTES # (AUTO) 0.1 /CMM (0.1-1.30); MONOCYTES % (AUTO) 2.8 % (2.0-12.0); NEUTROPHILS # (AUTO) 4.4 /CMM (1.8-8.9); NEUTROPHILS % (AUTO) 93.2 % (43.0-81.0); PLATELET COUNT (AUTO) 66 /CMM (150-450); RED BLOOD CELL COUNT(AUTO) 2.97 MIL/uL (4.0-5.2); WHITE BLOOD COUNT (AUTO) 4.7 K/uL (4.3-11.0)
[2019-06-03 05:01] LABS: CALCIUM, SERUM 9.1 mg/dL (8.5-10.1); CARBON DIOXIDE 31 mmol/L (21-32); CHLORIDE 103 mmol/L (98-107); CREATININE 0.6 mg/dL (0.6-1.3); GLUCOSE 252 mg/dL (74-106); PHOSPHORUS 2.7 mg/dL (2.5-4.9); POTASSIUM 3.9 mmol/L (3.5-5.1); SODIUM SERUM 137 mmol/L (136-145); UREA NITROGEN, BLOOD 44 mg/dL (7-18)
[2019-06-03 05:36] LABS: LYMPHOCYTES % (MANUAL) 6 % (16-48); MONOCYTES % (MANUAL) 3 % (0-11.0); NEUTROPHILS % (MANUAL) 91 (42-76)
[2019-06-03] MEDS: IV D5W 1,000 ML IV PRN (06:31)
--- NOTE | 2019-06-03 07:43 | NUR ---
PT REMAINS IN NO ACUTE DISTRESS IN BED. PT DID NOT HAVE ANY SIGNIFICANT CHANGE IN CONDITION DURING SHIFT. ALL NEEDS MET, ALL ORDERS CARRIED OUT. WILL ENDORSE CARE TO AM RN FOR CONTINUITY OF CARE.
[2019-06-03] MEDS: ACETYLCYSTEINE 10% SOLN 400 MG/4 ML VIAL NEB SCH ×3 (07:58→23:12)
--- NOTE | 2019-06-03 08:18 | NUR ---
INITIAL SNUFF DRIER NOTE RCVD PT ABLE TO OPEN EYES, NOT FOLLOW COMMANDS BUT TRACKING WITH EYES. SR ON MONITOR SEVERE EDEMA ON BUE/BLE, TOLERATING ORDERED VENT SETTINGS ON SIMV MODE, NO S/O DISTRESS OBSERVED. ETT 7.5 AT LIP, PEG PLACEMENT VERIFIED BY ASPIRATION OF GASTRIC CONTENT, TOLERATING TUBE FEEDING ABOUT 90 ML GASTRIC RESIDUAL OBTAINED. VILLANUEVA TO GRAVITY DRAINING CLOUDY, YELLOW URINE. VILMA MIDLINE C/D/I/PATENT, NO S/O INFILTRATION/PHLEBITIS OBSERVED UPON FLUSHING, IVF INFUSING ORDERED. WILL CONTINUE TO MONITOR PT FOR SAFETY AND COMFORT. BED IN LOW AND LOCKED POSITION, CALL LIGHT WITHIN REACH, HEAD OF BED ELEVATED.
[2019-06-03] MEDS: LISINOPRIL (10MG) 10 MG TABLET PO SCH (09:04)
[2019-06-03] MEDS: PANTOPRAZOLE 40 MG/PACK PACK GT SCH (09:04)
[2019-06-03] MEDS: FOLIC ACID 1 MG TABLET PO SCH (09:06)
[2019-06-03] MEDS: Z GUARD REMEDY 2 OZ OINT TP SCH ×2 (09:07→22:45)
[2019-06-03] MEDS: PROSOURCE / PROSTAT (PYXIS) 30 ML UDC GT SCH ×2 (09:07→17:30)
[2019-06-03] MEDS: THERAHONEY GEL 1.5 OZ TUBE TP SCH (09:08)
[2019-06-03] MEDS ORDERED: DIATR MEGLU/DIATRIZOATE SODIUM 30 ML BOTTLE (GASTROGRAPHIN) ONE (10:58)
--- NOTE | 2019-06-03 15:06 | NUR ---
METAL TILE SETTER NOTE PT TAKEN TO RADIOLOGY FOR CT ABD/PELVIS, TRANSPORTED VIA BED WITH RT AND RN AT BEDSIDE, PER PROTOCOL. PT TOLERATED PROCEDURE WELL. PT RETURNED TO ROOM IN STABLE CONDITION. RESULTS OF CT ABD/PELVIS COMMUNICATED TO SELENA ARRIETA FOR DR. PRICE WHO RECOMMENDED TO RE-START TUBE FEEDINGS. TF WAS RE-STARTED AND PT'S DAUGHTER, INGRIS, UPDATED ON SURGICAL TEAM'S RECOMMENDATION.
[2019-06-03] MEDS: GLUCERNA 1.2 1,000 ML BOTTLE NG PRN (17:30)
--- NOTE | 2019-06-03 18:13 | NUR ---
CARBON BRUSHES ASSEMBLER NOTE PT REMAINS STABLE, TOLERATING ORDERED VENT SETTINGS, SR ON MONITOR, NO S/O DISTRESS/OBSERVED. VILLANUEVA TO GRAVITY DRAINING CLOUDY, YELLOW URINE. G-TUBE PLACEMENT VERIFIED BY ASPIRATION OF GASTRIC CONTENTS. PT'S CARE WILL BE ENDORSED TO SPAR CAP BEVELER RN FOR CONTINUITY OF CARE, BED IN LOW AND LOCKED POSITION, CALL LIGHT WITHIN REAC, HEAD OF BED ELEVATED.
[2019-06-03] MEDS: IV NS 0.9% 250 ML IV PRN (18:30)
--- NOTE | 2019-06-03 19:45 | NUR ---
INITIAL SPINNING LATHE OPERATOR HYDRAULIC NOTE RCVD PT ABLE TO OPEN EYES, TRACKING WITH EYES. SR ON MONITOR, SEVERE EDEMA ON BUE/BLE, V ON SIMV MODE, NO S/O DISTRESS OBSERVED. ETT 7.5 AT LIP, PEG PLACEMENT VERIFIED BY ASPIRATION OF GASTRIC CONTENT, TOLERATING TUBE FEEDING ABOUT 60 ML GASTRIC RESIDUAL OBTAINED. VILLANUEVA TO GRAVITY DRAINING CLOUDY, YELLOW URINE. VILMA MIDLINE C/D/I/PATENT, NO S/O INFILTRATION/PHLEBITIS OBSERVED UPON FLUSHING, IVF INFUSING ORDERED. WILL CONTINUE TO MONITOR PT FOR SAFETY AND COMFORT. BED IN LOW AND LOCKED POSITION, CALL LIGHT WITHIN REACH, HEAD OF BED ELEVATED.
[2019-06-04] VITALS (42 sets, daily range): BP systolic 109–159; BP diastolic 51–94
[2019-06-04] MEDS: BLOOD SUGAR DIAGNOSTIC 1 EACH STRIP IN SCH ×5 (00:43→23:49)
[2019-06-04] MEDS: IPRATROPIUM NEB FS 0.5 MG/2.5 ML AMPUL.NEB NEB SCH ×6 (02:53→23:08)
[2019-06-04 05:01] LABS: BASOPHILS % (AUTO) 0.1 % (0.0-2.0); HEMATOCRIT 29 % (33-45); HEMOGLOBIN 9.9 g/dL (11.5-14.8); LYMPHOCYTES # (AUTO) 0.3 /CMM (0.8-4.8); LYMPHOCYTES % (AUTO) 3.9 % (20.0-44.0); MEAN CORPUSCULAR HGB CONC 34 g/dl (31.0-36.0); MEAN CORPUSCULAR VOLUME 89 fL (82-100); MONOCYTES # (AUTO) 0.2 /CMM (0.1-1.30); NEUTROPHILS # (AUTO) 6.5 /CMM (1.8-8.9); PLATELET COUNT (AUTO) 88 /CMM (150-450); RED BLOOD CELL COUNT(AUTO) 3.22 MIL/uL (4.0-5.2); WHITE BLOOD COUNT (AUTO) 6.9 K/uL (4.3-11.0)
[2019-06-04 05:19] LABS: CALCIUM, SERUM 9.3 mg/dL (8.5-10.1); CARBON DIOXIDE 31 mmol/L (21-32); CHLORIDE 103 mmol/L (98-107); CREATININE 0.5 mg/dL (0.6-1.3); GLUCOSE 189 mg/dL (74-106); PHOSPHORUS 2.4 mg/dL (2.5-4.9); POTASSIUM 4.1 mmol/L (3.5-5.1); SODIUM SERUM 138 mmol/L (136-145); UREA NITROGEN, BLOOD 46 mg/dL (7-18)
[2019-06-04 05:57] LABS: LYMPHOCYTES % (MANUAL) 3 % (16-48); NEUTROPHILS % (MANUAL) 94 (42-76)
[2019-06-04 05:58] LABS: MONOCYTES % (MANUAL) 3 % (0-11.0)
--- NOTE | 2019-06-04 06:19 | NUR ---
CAMERA MAKER CLOSING NOTE ENDORSED PT ABLE TO OPEN EYES, TRACKING WITH EYES. SR ON MONITOR, SEVERE EDEMA ON BUE/BLE, V ON SIMV MODE, NO S/O DISTRESS OBSERVED. ETT 7.5 AT LIP, PEG PLACEMENT VERIFIED BY ASPIRATION OF GASTRIC CONTENT, TOLERATING TUBE FEEDING ABOUT 5 ML GASTRIC RESIDUAL OBTAINED. VILLANUEVA TO GRAVITY DRAINING CLOUDY, YELLOW URINE. VILMA MIDLINE C/D/I/PATENT, SL, NPO AFTER MIDNIGHT, FOR POSSIBLE TRACH PLACEMENT, CHECK LIST AND CONSENT FILED. WILL ENDORSE TO AN RN FOR ALEX. BED IN LOW AND LOCKED POSITION, CALL LIGHT WITHIN REACH, HEAD OF BED ELEVATED.
--- NOTE | 2019-06-04 07:38 | NUR ---
INITIAL RAILROAD SHOP INSPECTOR NOTE RCVD PT ABLE TO OPEN EYES AND TRACK RN MOVEMENT's, SR ON MONITOR TOLERATING VENT SETTINGS, NO S/O DISTRESS OBSERVED, TUBE FEEDING HELD SINCE MIDNIGHT PER REPORT. G-TUBE CLAMPED. VILLANUEVA TO GRAVITY DRAINING CLOUDY, YELLOW URINE. VILMA MIDLINE C/D/I/PATENT, NO S/O INFILTRATION/PHLEBITIS OBSERVED UPON FLUSHING. WILL CONTINUE TO MONITOR PT FOR SAFETY AND COMFORT. BED IN LOW AND LOCKED POSITION, CALL LIGHT WITHIN REACH, HEAD OF BED ELEVATED.
[2019-06-04] MEDS: ACETYLCYSTEINE 10% SOLN 400 MG/4 ML VIAL NEB SCH ×3 (07:48→23:10)
[2019-06-04] MEDS ORDERED: LIDOCAINE HCL/MPF 1% 30 ML VIAL IJ ONE (08:45)
[2019-06-04] MEDS ORDERED: ANESTHESIA TRAY IN PYXIS 1 EA TRAY MC ONE (08:48)
[2019-06-04] MEDS ORDERED: ROCURONIUM BROMIDE 50 MG/5 ML ONE (09:21)
[2019-06-04] MEDS ORDERED: MIDAZOLAM HCL 2 MG/2ML VIAL ONE (09:21)
[2019-06-04] MEDS ORDERED: BUMETANIDE INJ 0.25 MG/ML VIAL IV ONE (09:30)
--- NOTE | 2019-06-04 09:38 | NUR ---
MACHINE SHOP SUPERVISOR NOTE PT TAKEN TO OR FOR TRACHEOSTOMY PLACEMENT
--- NOTE | 2019-06-04 10:14 | NUR ---
FIRE PATROL NOTE PT RETURNED TO ICU POST-TRACHEOSTOMY PLACEMENT. VITAL SIGNS REMAIN STABLE, SR ON MONITOR, TOLERATING VENT SETTINGS, REMAINS SEDATED FROM PROCEDURE. WILL CONTINUE TO MONITOR.
[2019-06-04] MEDS ORDERED: NEUTRA PHOS 1 POWD.PACKET GT ONE (10:30)
[2019-06-04] MEDS: GLUCERNA 1.2 1,000 ML BOTTLE NG PRN (10:34)
[2019-06-04] MEDS: FOLIC ACID 1 MG TABLET PO SCH (10:35)
[2019-06-04] MEDS: Z GUARD REMEDY 2 OZ OINT TP SCH ×2 (10:35→21:19)
[2019-06-04] MEDS: LISINOPRIL (10MG) 10 MG TABLET PO SCH (10:35)
[2019-06-04] MEDS: PANTOPRAZOLE 40 MG/PACK PACK GT SCH (10:35)
[2019-06-04] MEDS: PROSOURCE / PROSTAT (PYXIS) 30 ML UDC GT SCH ×2 (10:36→16:16)
[2019-06-04] MEDS: THERAHONEY GEL 1.5 OZ TUBE TP SCH (10:36)
[2019-06-04] MEDS: INSULIN REGULAR, HUMAN 100 UNIT/ML 3 ML VIAL SQ PRN ×3 (12:00→23:40)
[2019-06-04] MEDS: NYSTATIN/TRIAMCIN CREAM 15 GM TUBE TP SCH (17:35)
[2019-06-04] MEDS: ACETAMINOPHEN 650 MG/20.3 ML UDC NG PRN (17:40)
--- NOTE | 2019-06-04 18:39 | NUR ---
FOOD COUNTER ATTENDANT NOTE PT REMAINS A LITTLE DROWSY, SR/ST ON MONITOR, TYLENOL GIVEN FOR PAIN (TACHYCARDIA), PT WITH TRACHEOSTOMY NOW, MINOR BLEEDING OBSERVED AT SURGICAL SITE, VILLANUEVA TO GRAVITY DRAINING CLOUDY, YELLOW URINE. TUBE FEEDING RE-STARTED AT 35 ML/HR, LAST RESIDUAL OF 100 ML WATER FLUSH HELD DUE TO ELEVATED RESIDUAL. PT'S CARE WILL BE ENDORSED TO LASTING ROOM SUPERVISOR RN FOR CONTINUITY OF CARE, BED IN LOW AND LOCKED POSITION, CALL LIGHT WITHIN REACH, HEAD OF BED ELEVATED, PT'S FAMILY AT BEDSIDE.
--- NOTE | 2019-06-04 19:10 | NUR ---
BRUSH OPERATOR NOTE PATIENT IS RESTING WITH HOB ELEVATED, TRACH TO VENT ON SETTINGS ORDERED, FAMILY AT BEDSIDE, NO CARDIAC OR RESPIRATORY DISTRESS NOTED, SKIN KEPT CLEAN AND DRY VILMA MIDLINE SL, G TUBE WITH GLUCERNA AT 35 ML /HR, VILLANUEVA CATHETER DRAINING TO GRAVITY YELLOW URINE, SKIN KEPT CLEAN AND DRY, SAFETY MAINTAINED AT ALL TIMES, BED IN LOW LOCKED POSITION, WILL CONTINUE TO MONITOR FOR ANY CHANGES.
[2019-06-05] VITALS (22 sets, daily range): BP systolic 95–147; BP diastolic 51–114
[2019-06-05] MEDS: IPRATROPIUM NEB FS 0.5 MG/2.5 ML AMPUL.NEB NEB SCH ×6 (03:30→23:28)
[2019-06-05] MEDS: BLOOD SUGAR DIAGNOSTIC 1 EACH STRIP IN SCH ×4 (05:03→23:40)
[2019-06-05] MEDS: INSULIN REGULAR, HUMAN 100 UNIT/ML 3 ML VIAL SQ PRN ×3 (05:03→23:32)
[2019-06-05 05:05] LABS: HEMATOCRIT 28 % (33-45); HEMOGLOBIN 9.4 g/dL (11.5-14.8); LYMPHOCYTES # (AUTO) 0.1 /CMM (0.8-4.8); LYMPHOCYTES % (AUTO) 2.2 % (20.0-44.0); MEAN CORPUSCULAR HGB CONC 34 g/dl (31.0-36.0); MEAN CORPUSCULAR VOLUME 89 fL (82-100); MONOCYTES # (AUTO) 0.2 /CMM (0.1-1.30); MONOCYTES % (AUTO) 3.8 % (2.0-12.0); NEUTROPHILS # (AUTO) 5.6 /CMM (1.8-8.9); PLATELET COUNT (AUTO) 99 /CMM (150-450)
[2019-06-05 05:17] LABS: ALANINE AMINOTRANSFERASE 33 U/L (12-78); ALKALINE PHOSPHATASE 464 U/L (46-116); ASPARTATE AMINOTRANSFERASE 23 U/L (15-37); BILIRUBIN,TOTAL 0.2 mg/dL (0.2-1.0); CARBON DIOXIDE 31 mmol/L (21-32); CHLORIDE 104 mmol/L (98-107); CREATININE 0.7 mg/dL (0.6-1.3); GLUCOSE 214 mg/dL (74-106); POTASSIUM 3.6 mmol/L (3.5-5.1); SODIUM SERUM 140 mmol/L (136-145); TOTAL PROTEIN, SERUM 4.4 g/dL (6.4-8.2); UREA NITROGEN, BLOOD 50 mg/dL (7-18)
--- NOTE | 2019-06-05 05:40 | NUR ---
ESCORT SERVICE ATTENDANT NOTE CALL FROM LAB TO REPORT ALBUMIN IS 1 WILL ENDORSE TO AM NURSE
[2019-06-05 06:37] LABS: BAND % (MANUAL) 6 % (0.0-5.0); LYMPHOCYTES % (MANUAL) 1 % (16-48); METAMYELOCYTES % 1 % (0-0); MONOCYTES % (MANUAL) 4 % (0-11.0); NEUTROPHILS % (MANUAL) 88 (42-76)
--- NOTE | 2019-06-05 07:30 | NUR ---
RN NOTE: RECEIVED PATIENT IN BED, ASLEEP BUT AROUSABLE WITH TACTILE STIMULI, OPEN EYES SPONTANEOUSLY AND BREATHING EVENLY AND UNLABORED SATURATING 100% IN CURRENT MECHANICAL VENT SETTING. ON SIMV MODE AT THE MECHANICAL VENTILATOR AND PER DR. MOULTON'S ORDER FROM YESTERDAY, THE PATIENT WILL BE SWITCH TO A CPAP MODE. RT JACQUELINE WAS AWARE AND VENTILATOR CHANGES WILL BE DONE AT 0800 TODAY. ON VALANCE CUTTER SR HR= 80. AFEBRILE. SKIN WARM TO TOUCH. GT SITE NOTED INTACT AND PATENT WITH DRY DRESSING. GASTRIC RESIDUAL WAS CHECKED AND IT WAS NOTED WITH 150 ML. PATIENT WILL BE GIVEN REGLAN IV PRN. (R) UA MIDLINE DOUBLE LUMEN NOTED PATENT AND INTACT WITH TRANSPARENT DRESSING CLEAN AND DRY. PATIENT WAS NOTED WITH GENERALIZED EDEMA. VILLANUEVA CATHETER WAS IN PLACED DRAINING YELLOW URINE TO GRAVITY. ALL EXTREMITIES WERE ELEVATED. HOB ELEVATED. BED ALARMED AND LOCKED AT ALL TIMES. CALL LIGHT WITHIN REACH NEEDS ANTICIPATED.
[2019-06-05] MEDS: ACETYLCYSTEINE 10% SOLN 400 MG/4 ML VIAL NEB SCH ×3 (07:57→23:28)
--- NOTE | 2019-06-05 08:01 | NUR ---
RN NOTE: RT JACQUELINE SWITCHED THE MECHANICAL VENTILATOR'S MODE FROM SIMV TO CPAP PER DR. MOULTON'S ORDER, BUT PATIENT DID NOT TOLERATE IT. PATIENT WAS NOT ABLE TO PERFORM SPONTANEOUS BREATHING. RIGHT AWAY PATIENT WAS SWITCHED BACK TO SIMV MODE AGAIN. WILL INFORM THE ACOUSTIC SENSOR OPERATOR TODAY AND THE ROUNDING MD.
[2019-06-05] MEDS: PANTOPRAZOLE 40 MG/PACK PACK GT SCH (08:06)
[2019-06-05] MEDS: PROSOURCE / PROSTAT (PYXIS) 30 ML UDC GT SCH ×2 (08:06→17:21)
[2019-06-05] MEDS: FOLIC ACID 1 MG TABLET PO SCH (08:06)
[2019-06-05] MEDS: LISINOPRIL (10MG) 10 MG TABLET PO SCH (08:06)
[2019-06-05] MEDS: THERAHONEY GEL 1.5 OZ TUBE TP SCH (08:07)
[2019-06-05] MEDS: NYSTATIN/TRIAMCIN CREAM 15 GM TUBE TP SCH ×2 (08:07→17:34)
[2019-06-05] MEDS: Z GUARD REMEDY 2 OZ OINT TP SCH ×2 (08:07→20:29)
[2019-06-05] MEDS: METOCLOPRAMIDE HCL 10 MG/2 ML VIAL IV PRN ×2 (08:11→17:41)
--- NOTE | 2019-06-05 08:30 | NUR ---
RN NOTE: RECEIVED A PHONE CALL FROM INGRIS (DAUGHTER) AND GAVE HER AN UPDATE REGARDING THE PATIENT'S CONDITION INCLUDING THE ATTEMPT TO SWITCH THE MECHANICAL VENTILATOR MODE. PER DAUGHTER SHE WILL BE COMING IN ANYTIME TO VISIT THE PATIENT.
--- NOTE | 2019-06-05 10:00 | NUR ---
RN NOTE: DR. ROSARIO MADE ROUNDS AND INFORMED HIM ABOUT THE PATIENT'S CONDITION. PATIENT DID NOT TOLERATE THE SWITCH OF THE VENTILATOR SETTING AND WAS RETURNED TO THE PREVIOUS SIMV MODE. NO NEW ORDER WAS GIVEN BY DR. EATON.
[2019-06-05] MEDS: GLUCERNA 1.2 1,000 ML BOTTLE NG PRN (11:10)
--- NOTE | 2019-06-05 12:10 | NUR ---
RN NOTE: DR. NARANJO, PHOTOGRAPHIC SPECIALIST WAS PRESENT IN THE UNIT, GAVE HIM AN UPDATE REGARDING THE PATIENT'S CONDITION AND THE ATTEMPT FOR THE MECHANICAL VENTILATOR MODE CHANGE. PER DR. NARANJO, OK TO KEEP THE PATIENT ON THE SIMV MODE FOR NOW AND WILL ATTEMPT IN A FEW DAYS FOR THE WEANING. DAUGHTER INGRIS WAS AT THE BEDSIDE AND WAS INFORMED ABOUT IT AND THE PLAN OF DOWNGRADING THE PATIENT TO A DIFFERENT UNIT.
--- NOTE | 2019-06-05 12:25 | NUR ---
RN NOTE: RECEIVED A ROOM NUMBER FOR THE PATIENT'S DOWNGRADE TO ROOM 104.
--- NOTE | 2019-06-05 12:45 | NUR ---
RN NOTE: CALLED AND SPOKE WITH JL OWEN RN AND GAVE HER A REPORT REGARDING THE TRANSFER OF THE PATIENT TO ROOM 104. EXPECTED TIME OF TRANSFER WILL BE BEFORE 1:30 PM. DAUGHTER INGRIS PRESENT AT THE BEDSIDE AND WAS INFORMED OF THE TRANSFER.
--- NOTE | 2019-06-05 13:15 | NUR ---
RN NOTE: PATIENT WAS TRANSFERRED TO [facility] ROOM 104 VIA ACLS PROTOCOL. DAUGHTER INGRIS WAS AWARE OF THE TRANSFER. PATIENT HAS NO BELONGINGS UPON TRANSFER TO THE UNIT. RECEIVING NURSE WAS JL OWEN RN.
--- NOTE | 2019-06-05 13:15 | NUR ---
emergency telecommunications dispatcher notes received pt from icu in room 104. pt on vent; no sob noted. tolerating settings. opens eyes spontaneously, tracks. on tele sr 70's afebrile with stable vs. pt noted with blood tinged drainage from tracheostomy site. no drainage on peg site. gtf infusing at 35ml/hr. VILMA midline flushing well but without blood return. pt has f/c in place draining cloudy yellow urine. bed in locked/lowest position. call light in reach.
--- NOTE | 2019-06-05 18:40 | NUR ---
telecom network manager end of shift notes pt in bed, asleep. vs stable. no significant changes. pt tolerated all treatments. will endorse to pm nurse for iain.
--- NOTE | 2019-06-05 19:27 | NUR ---
WELDER GAS AUTOMATIC NOTE PATIENT IS RESTING WITH HOB ELEVATED, TRACH TO VENT ON SETTINGS ORDERED, DAUGHTER AT BEDSIDE, NO CARDIAC OR RESPIRATORY DISTRESS NOTED, SR ON MONITOR, SKIN KEPT CLEAN AND DRY, VILMA MIDLINE SL, G TUBE WITH GLUCERNA AT 45 ML /HR, VILLANUEVA CATHETER DRAINING TO GRAVITY YELLOW CLOUDY URINE, SKIN KEPT CLEAN AND DRY, SAFETY MAINTAINED AT ALL TIMES, BED IN LOW LOCKED POSITION, WILL CONTINUE TO MONITOR FOR ANY CHANGES.
[2019-06-05] MEDS: Z GUARD REMEDY 2 OZ OINT TP PRN (20:25)
[2019-06-05] MEDS: ENOXAPARIN SODIUM 40 MG/0.4 ML DISP.SYRIN SQ SCH (20:26)
[2019-06-06] VITALS: BP 123/63
[2019-06-06] MEDS: IPRATROPIUM NEB FS 0.5 MG/2.5 ML AMPUL.NEB NEB SCH ×6 (03:03→23:59)
[2019-06-06 04:00] VITALS: BP 120/72
[2019-06-06] MEDS: INSULIN REGULAR, HUMAN 100 UNIT/ML 3 ML VIAL SQ PRN ×3 (05:33→18:25)
[2019-06-06] MEDS: BLOOD SUGAR DIAGNOSTIC 1 EACH STRIP IN SCH ×3 (06:07→18:27)
--- NOTE | 2019-06-06 07:30 | NUR ---
telemarketing fundraiser opening notes received pt in bed, asleep but arouses easily. on mech vent to trach; no labored breathing noted. on tele sr 80/s. vs stable. with lin hugger. lung galloway clear to auscultation. active bowel sounds noted. generalized edema, pitting. f/c draining cloudy yellow urine. glucerna at 45ml/hr. gtube with 90cc residual. ewelina midline flushed/patent/clean. bed in locked/lowest position. call light in reach. will cont to monitor.
[2019-06-06 08:00] VITALS: BP 119/64
[2019-06-06] MEDS: ACETYLCYSTEINE 10% SOLN 400 MG/4 ML VIAL NEB SCH ×3 (08:11→23:59)
--- NOTE | 2019-06-06 08:59 | NUR ---
telecasting engineer notes dr mercado rounded with pt. ordered 10 units lantus insulin daily and repeat urine cx.
[2019-06-06] MEDS: PANTOPRAZOLE 40 MG/PACK PACK GT SCH (09:11)
[2019-06-06] MEDS: ACETAMINOPHEN 650 MG/20.3 ML UDC NG PRN (09:11)
[2019-06-06] MEDS: LISINOPRIL (10MG) 10 MG TABLET PO SCH (09:11)
[2019-06-06] MEDS: FOLIC ACID 1 MG TABLET PO SCH (09:11)
[2019-06-06] MEDS: PROSOURCE / PROSTAT (PYXIS) 30 ML UDC GT SCH ×2 (09:11→18:20)
[2019-06-06] MEDS: NYSTATIN/TRIAMCIN CREAM 15 GM TUBE TP SCH ×2 (09:15→18:20)
[2019-06-06] MEDS: Z GUARD REMEDY 2 OZ OINT TP SCH ×2 (09:16→21:21)
[2019-06-06] MEDS: THERAHONEY GEL 1.5 OZ TUBE TP SCH (09:16)
[2019-06-06 12:00] VITALS: BP 101/56
[2019-06-06] MEDS: GLUCERNA 1.2 1,000 ML BOTTLE NG PRN (12:10)
[2019-06-06 16:00] VITALS: BP 130/69
--- NOTE | 2019-06-06 19:10 | NUR ---
WASTE SPECIALIST NOTE PT IS RESTING WITH HOB ELEVATED, EYE TRACKING, TRACH TO VENT ON SETTINGS ORDERED, NO CARDIAC OR RESPIRATORY DISTRESS NOTED, SR ON MONITOR, SKIN KEPT CLEAN AND DRY, VILMA MIDLINE SL, G TUBE WITH GLUCERNA AT 45 ML /HR, VILLANUEVA CATHETER DRAINING TO GRAVITY YELLOW CLOUDY URINE, SKIN KEPT CLEAN AND DRY, SAFETY MAINTAINED AT ALL TIMES, BED IN LOW LOCKED POSITION, WILL CONTINUE TO MONITOR FOR ANY CHANGES.
--- NOTE | 2019-06-06 19:30 | NUR ---
rn telehealth end of shift notes pt stable on vent. no s/sx of resp distress noted. daughter at bedside and updated with poc. endorsed to pm nurse for iain.
[2019-06-06 20:00] VITALS: BP 130/65
[2019-06-06] MEDS: ENOXAPARIN SODIUM 40 MG/0.4 ML DISP.SYRIN SQ SCH (21:22)
[2019-06-06] MEDS: INSULIN GLARGINE, 100 UNIT/ML CARTRIDGE SQ SCH (21:23)
[2019-06-07] VITALS: BP 101/66
[2019-06-07] MEDS: INSULIN REGULAR, HUMAN 100 UNIT/ML 3 ML VIAL SQ PRN ×4 (00:01→23:58)
[2019-06-07] MEDS: BLOOD SUGAR DIAGNOSTIC 1 EACH STRIP IN SCH ×5 (00:01→23:49)
[2019-06-07 04:00] VITALS: BP 104/59
[2019-06-07] MEDS: IPRATROPIUM NEB FS 0.5 MG/2.5 ML AMPUL.NEB NEB SCH ×5 (04:08→19:37)
[2019-06-07 06:28] LABS: HEMATOCRIT 33 % (33-45); HEMOGLOBIN 10.3 g/dL (11.5-14.8); LYMPHOCYTES # (AUTO) 0.5 /CMM (0.8-4.8); LYMPHOCYTES % (AUTO) 5.1 % (20.0-44.0); MEAN CORPUSCULAR HGB CONC 32 g/dl (31.0-36.0); MEAN CORPUSCULAR VOLUME 94 fL (82-100); MONOCYTES # (AUTO) 0.7 /CMM (0.1-1.30); MONOCYTES % (AUTO) 6.5 % (2.0-12.0); NEUTROPHILS # (AUTO) 9.4 /CMM (1.8-8.9); NEUTROPHILS % (AUTO) 88.4 % (43.0-81.0); PLATELET COUNT (AUTO) 142 /CMM (150-450); RED BLOOD CELL COUNT(AUTO) 3.46 MIL/uL (4.0-5.2); WHITE BLOOD COUNT (AUTO) 10.7 K/uL (4.3-11.0)
[2019-06-07 06:30] LABS: ALANINE AMINOTRANSFERASE 32 U/L (12-78); ALKALINE PHOSPHATASE 478 U/L (46-116); ASPARTATE AMINOTRANSFERASE 33 U/L (15-37); BILIRUBIN,TOTAL 0.3 mg/dL (0.2-1.0); CALCIUM, SERUM 9.4 mg/dL (8.5-10.1); CARBON DIOXIDE 26 mmol/L (21-32); CHLORIDE 107 mmol/L (98-107); CREATININE 0.7 mg/dL (0.6-1.3); GLUCOSE 217 mg/dL (74-106); PHOSPHORUS 2.5 mg/dL (2.5-4.9); POTASSIUM 4.7 mmol/L (3.5-5.1); SODIUM SERUM 143 mmol/L (136-145); TOTAL PROTEIN, SERUM 4.6 g/dL (6.4-8.2); UREA NITROGEN, BLOOD 55 mg/dL (7-18)
--- NOTE | 2019-06-07 07:30 | NUR ---
RN NOTE: RECEIVED PATIENT IN BED, ASLEEP, BUT AROUSABLE WITH VERBAL CUES AND TACTILE STIMULI. NONVERBAL. ON MECHANICAL VENTILATOR SATURATING 100% AND STILL ON SIMV MODE. HOB ELEVATED. BED ALARMED AND LOCKED AT ALL TIMES. GT FEEDING OF GLUCERNA 1.2 @ 45ML/HR AND PATIENT WAS NOTED WITH 60ML OF GASTRIC RESIDUAL. (R) UA MIDLINE NOTED PATENT AND INTACT WITH TRANSPARENT DRESSING CLEAN AND DRY. VILLANUEVA CATHETER IN PLACED WITH YELLOW URINE DRAINING TO GRAVITY. PATIENT ON [employer] 1ST STEP MATTRESS FOR THE SACRAL WOUND MANAGEMENT. CALL LIGHT WITHIN REACH. NEEDS ANTICIPATED.
[2019-06-07] MEDS: ACETYLCYSTEINE 10% SOLN 400 MG/4 ML VIAL NEB SCH ×3 (07:44→22:38)
[2019-06-07 08:00] VITALS: BP_SYST 121; BP_SYST 125; BP_DIAS 63; BP_DIAS 73
[2019-06-07] MEDS: PANTOPRAZOLE 40 MG/PACK PACK GT SCH (08:54)
[2019-06-07] MEDS: PROSOURCE / PROSTAT (PYXIS) 30 ML UDC GT SCH ×2 (08:54→16:50)
[2019-06-07] MEDS: FOLIC ACID 1 MG TABLET PO SCH (08:54)
[2019-06-07] MEDS: LISINOPRIL (10MG) 10 MG TABLET PO SCH (08:55)
[2019-06-07] MEDS: NYSTATIN/TRIAMCIN CREAM 15 GM TUBE TP SCH ×2 (08:55→16:51)
[2019-06-07] MEDS: Z GUARD REMEDY 2 OZ OINT TP SCH ×2 (08:56→20:19)
[2019-06-07] MEDS: THERAHONEY GEL 1.5 OZ TUBE TP SCH (08:56)
[2019-06-07 12:00] VITALS: BP 137/49
[2019-06-07] MEDS: GLUCERNA 1.2 1,000 ML BOTTLE NG PRN (15:33)
--- NOTE | 2019-06-07 15:48 | NUR ---
RT Upon doing trach care there was noticeable skin tear that seems to be have caused by trach tube. LORA Rodriguez notified and placed mepilex on wound. Addendum: 06/07/19 at 1613 by KATY STEPHEN RT Amended: Links added.
[2019-06-07 16:00] VITALS: BP 138/42
--- NOTE | 2019-06-07 16:00 | NUR ---
RN NOTE: PATIENT WAS NOTED WITH A SMALL SKIN TEAR MEASURING 0.2 X 0.4 CM ON THE MID-CLAVICULAR AREA UNDER THE TRACH SITE. WILL INFORM THE DAUGHTER INGRIS ABOUT IT. SKIN TEAR WAS COVERED WITH MEPILEX FOR SKIN MANAGEMENT. TRACH CARE AND MOUTH CARE WAS PROVIDED.
[2019-06-07] MEDS ORDERED: BUMETANIDE INJ 3 MG in IV NS 0.9% 48 ML IV ONE (17:00)
[2019-06-07] MEDS: METOCLOPRAMIDE HCL 10 MG/2 ML VIAL IV PRN (18:33)
--- NOTE | 2019-06-07 18:33 | NUR ---
RN NOTE: PATIENT'S GASTRIC RESIDUAL WAS NOTED 100ML. REGLAN PRN WAS ADMINISTERED. PATIENT'S DAUGHTER INGRIS WAS PRESENT AT THE BEDSIDE AND SHE WAS GIVEN UPDATES REGARDING THE PATIENT'S CONDITION AND NEW ORDERS FROM THE DOCTOR.
--- NOTE | 2019-06-07 19:05 | NUR ---
VENEER GLUER NOTE PATIENT IS RESTING WITH HOB ELEVATED, DAUGHTER AT BEDSIDE, EYE TRACKING, TRACH TO VENT ON SETTINGS ORDERED, NO CARDIAC OR RESPIRATORY DISTRESS NOTED, SR/AFIB ON MONITOR, SKIN KEPT CLEAN AND DRY, VILMA MIDLINE SL, G TUBE WITH GLUCERNA AT 45 ML /HR, VILLANUEVA CATHETER DRAINING TO GRAVITY YELLOW CLOUDY URINE, SKIN KEPT CLEAN AND DRY, BILATERAL HEELS ELEVATED, SAFETY MAINTAINED AT ALL TIMES, BED IN LOW LOCKED POSITION, WILL CONTINUE TO MONITOR FOR ANY CHANGES.
--- NOTE | 2019-06-07 19:20 | NUR ---
RN NOTE: BEDSIDE REPORT WAS GIVEN TO PM SHIFT NURSE FOR CONTINUITY OF CARE. PATIENT'S DAUGHTER INGRIS WAS AT THE BEDSIDE. PATIENT REMAINED ON GT FEEDING OF GLUCERNA 1.2 @45ML/HR. EMPHASIZED TO PM SHIFT NURSE TO MONITOR THE GASTRIC RESIDUAL.
[2019-06-07 20:00] VITALS: BP 143/90
[2019-06-07] MEDS: ENOXAPARIN SODIUM 60 MG/0.6 ML DISP.SYRIN SQ SCH (20:19)
[2019-06-07] MEDS: INSULIN GLARGINE, 100 UNIT/ML CARTRIDGE SQ SCH (21:36)
[2019-06-07] MEDS: ACETAMINOPHEN 650 MG/20.3 ML UDC NG PRN (23:48)
[2019-06-08] VITALS: BP 145/83
[2019-06-08] MEDS: IPRATROPIUM NEB FS 0.5 MG/2.5 ML AMPUL.NEB NEB SCH ×7 (00:44→23:56)
[2019-06-08 04:00] VITALS: BP 147/64
[2019-06-08] MEDS: INSULIN REGULAR, HUMAN 100 UNIT/ML 3 ML VIAL SQ PRN ×4 (05:42→22:59)
[2019-06-08] MEDS: BLOOD SUGAR DIAGNOSTIC 1 EACH STRIP IN SCH ×4 (05:42→23:00)
--- NOTE | 2019-06-08 07:10 | NUR ---
ELECTROMEDICAL EQUIPMENT TECHNICIAN OPENING NOTE RECEIVED REPORT FROM PM NURSE.PATIENT IN BED WITH HOB ELEVATED,OPEN EYES AND TRACKS. TRACH TO VENT , TOLERATING SETTINGS ORDERED. NO CARDIAC OR RESPIRATORY DISTRESS NOTED, SR ON MONITOR HR 95. VILMA MIDLINE SL, G TUBE WITH GLUCERNA AT 45 ML /HR, VILLANUEVA CATHETER DRAINING TO GRAVITY YELLOW CLOUDY URINE.BILATERAL HEELS ELEVATED.GENERALIZED EDEMA WITH WEEPING EDEMA IN R ARM.SAFETY MEASURES IN PLACE. BED IN LOW LOCKED POSITION.SRX3.BED ALARM ON. WILL CONTINUE TO MONITOR .
[2019-06-08] MEDS: ACETYLCYSTEINE 10% SOLN 400 MG/4 ML VIAL NEB SCH ×3 (07:22→23:56)
--- NOTE | 2019-06-08 07:49 | NUR ---
PT. PLACED INTO SIMV 4, PS 15 @ 30% FIO2. PT IS AWAKE BUT UNABLE TO FOLLOW COMMANDS SPO2 99 - 100%, RR 18 BPM, HR 93 - 98 bpm. NO SOB NOTED. Addendum: 06/08/19 at 0753 by JAMES MORRIS RT Amended: Links added.
[2019-06-08 08:00] VITALS: BP 141/83
[2019-06-08 08:37] LABS: BASOPHILS % (AUTO) 0.1 % (0.0-2.0); HEMATOCRIT 27 % (33-45); HEMOGLOBIN 8.9 g/dL (11.5-14.8); LYMPHOCYTES # (AUTO) 0.2 /CMM (0.8-4.8); LYMPHOCYTES % (AUTO) 2.2 % (20.0-44.0); MEAN CORPUSCULAR HGB CONC 33 g/dl (31.0-36.0); MEAN CORPUSCULAR VOLUME 89 fL (82-100); MONOCYTES # (AUTO) 0.5 /CMM (0.1-1.30); NEUTROPHILS # (AUTO) 9.6 /CMM (1.8-8.9); NEUTROPHILS % (AUTO) 92.7 % (43.0-81.0); PLATELET COUNT (AUTO) 174 /CMM (150-450); RED BLOOD CELL COUNT(AUTO) 3.02 MIL/uL (4.0-5.2); WHITE BLOOD COUNT (AUTO) 10.4 K/uL (4.3-11.0)
[2019-06-08] MEDS: PANTOPRAZOLE 40 MG/PACK PACK GT SCH (08:44)
[2019-06-08] MEDS: PROSOURCE / PROSTAT (PYXIS) 30 ML UDC GT SCH ×2 (08:44→16:21)
[2019-06-08] MEDS: FOLIC ACID 1 MG TABLET PO SCH (08:44)
[2019-06-08] MEDS: LISINOPRIL (10MG) 10 MG TABLET PO SCH (08:44)
[2019-06-08] MEDS: NYSTATIN/TRIAMCIN CREAM 15 GM TUBE TP SCH ×2 (08:45→16:21)
[2019-06-08] MEDS: Z GUARD REMEDY 2 OZ OINT TP SCH ×2 (08:45→21:01)
[2019-06-08 08:49] LABS: CARBON DIOXIDE 30 mmol/L (21-32); CHLORIDE 107 mmol/L (98-107); CREATININE 0.8 mg/dL (0.6-1.3); GLUCOSE 306 mg/dL (74-106); MAGNESIUM 1.9 mg/dL (1.8-2.4); POTASSIUM 3.6 mmol/L (3.5-5.1); SODIUM SERUM 145 mmol/L (136-145); UREA NITROGEN, BLOOD 64 mg/dL (7-18)
[2019-06-08] MEDS: ENOXAPARIN SODIUM 60 MG/0.6 ML DISP.SYRIN SQ SCH ×2 (08:51→21:01)
[2019-06-08] MEDS: THERAHONEY GEL 1.5 OZ TUBE TP SCH (09:04)
[2019-06-08 09:42] LABS: BAND % (MANUAL) 3 % (0.0-5.0); LYMPHOCYTES % (MANUAL) 1 % (16-48); MONOCYTES % (MANUAL) 10 % (0-11.0); NEUTROPHILS % (MANUAL) 86 (42-76)
[2019-06-08 12:00] VITALS: BP 155/68
[2019-06-08] MEDS: ACETAMINOPHEN 650 MG/20.3 ML UDC NG PRN (12:02)
[2019-06-08] MEDS ORDERED: NEUTRA PHOS 1 POWD.PACKET GT ONE (15:30)
[2019-06-08 16:00] VITALS: BP 152/75
--- NOTE | 2019-06-08 16:00 | NUR ---
ACCOUNTING CLERKS SUPERVISOR NOTE SEEN BY SELENA ZAZUETA UPDATED ABOUT PATIENT CONDITION WITH LABS,GOT NEW ORDERS.D/C PLANNING.
[2019-06-08 17:00] LABS: ABG PCO2 39.2 mmHg (35.0-45.0); AaDO2 63.8 mmHg; COHb 0.3 % (0.5-1.5); MetHb 0.7 % (0.0-1.5); PEEP,BG 5 cm H2O; SITE, ABG Right Brachial; VENT MODE, BG SIMV 4 / PS 15; VT, ABG 400 mL
[2019-06-08] MEDS ORDERED: BUMETANIDE INJ 3 MG in IV NS 0.9% 48 ML IV ONE (17:30)
--- NOTE | 2019-06-08 17:30 | NUR ---
ASSEMBLER FAUCETS NOTE PATIENT ON SIMV,GOT NEW ORDER FOR ABG FROM .RELAYED RESULT TO .NNO.PATIENT ABLE TO TRACK AND ABLE TO RECOGNIZE DAUGHTER.WILL CONTINUE TO MONITOR.
--- NOTE | 2019-06-08 19:10 | NUR ---
TAX APPRAISER CLOSING NOTE ENDORSED TO PM NURSE FOR ALEX.PATIENT IN STABLE CONDITION.TOLERATING SIMV WELL.DAUGHTER AT BEDSIDE.SHE IS THANK FULL ABOUT GOOD CARE PROVIDED TO THE PATIENT.
--- NOTE | 2019-06-08 19:34 | NUR ---
SUPERINTENDENT COMPRESSOR STATIONS NOTES RECEIVED PT ON [facility]ED. [facility] NO RESPIRATORY DISTRESS NOTED. ON TELE MONITOR SR/AFIB 81. ON GTUBE FEEDING NO RESIDUAL NOTED. IV ACCESS ON VILMA MIDLINE, SALINE LOCK. ON VILLANUEVA CATH DRAINING YELLOW URINE. HEAD OF BED ELEVATED. SIDE RAILS UP. CALL LIGHT WITHIN REACH. BED ALARM ON. WILL CONTINUE TO MONITOR PT CLOSELY.
[2019-06-08 20:00] VITALS: BP 140/65
[2019-06-08] MEDS: GLUCERNA 1.2 1,000 ML BOTTLE NG PRN (21:01)
[2019-06-08] MEDS: SULFAMETH/TRIMETH 800/160 MG 1 UDTAB TABLET PO SCH (21:01)
[2019-06-08] MEDS: INSULIN GLARGINE, 100 UNIT/ML CARTRIDGE SQ SCH (22:58)
[2019-06-08] MEDS: METOCLOPRAMIDE HCL 10 MG/2 ML VIAL IV PRN (23:02)
[2019-06-09] VITALS: BP 125/66
--- NOTE | 2019-06-09 01:04 | NUR ---
SOLE MOLDING MACHINE OPERATOR NOTES PT RESIDUAL OF 150CC. HOLDING FEEDING FOR 2 HOURS. REGLAN GIVEN
[2019-06-09 04:00] VITALS: BP_SYST 95; BP_SYST 98; BP_DIAS 65
[2019-06-09] MEDS: IPRATROPIUM NEB FS 0.5 MG/2.5 ML AMPUL.NEB NEB SCH ×4 (04:10→15:30)
[2019-06-09] MEDS: BLOOD SUGAR DIAGNOSTIC 1 EACH STRIP IN SCH ×2 (05:35→11:17)
--- NOTE | 2019-06-09 05:36 | NUR ---
PHOTOGRAPHIC DOUBLE NOTES PT NOT GIVEN INSULIN COVERAGE DUE TO GTUBE RESIDUALS. GTUBE CLAMPLED FOR NOW.
[2019-06-09] MEDS: METOCLOPRAMIDE HCL 10 MG/2 ML VIAL IV PRN (05:43)
[2019-06-09 06:23] VITALS: BP 105/65
[2019-06-09 06:49] LABS: OCCULT BLOOD STOOL NEGATIVE (NEGATIVE)
[2019-06-09 07:01] LABS: BASOPHILS % (AUTO) 0.1 % (0.0-2.0); HEMATOCRIT 27 % (33-45); HEMOGLOBIN 8.8 g/dL (11.5-14.8); LYMPHOCYTES # (AUTO) 0.4 /CMM (0.8-4.8); LYMPHOCYTES % (AUTO) 4.9 % (20.0-44.0); MEAN CORPUSCULAR HGB CONC 33 g/dl (31.0-36.0); MEAN CORPUSCULAR VOLUME 90 fL (82-100); MONOCYTES # (AUTO) 0.2 /CMM (0.1-1.30); MONOCYTES % (AUTO) 2.3 % (2.0-12.0); NEUTROPHILS # (AUTO) 6.7 /CMM (1.8-8.9); NEUTROPHILS % (AUTO) 92.7 % (43.0-81.0); PLATELET COUNT (AUTO) 183 /CMM (150-450); RED BLOOD CELL COUNT(AUTO) 2.98 MIL/uL (4.0-5.2); WHITE BLOOD COUNT (AUTO) 7.3 K/uL (4.3-11.0)
--- NOTE | 2019-06-09 07:10 | NUR ---
MAINTENANCE LEADER OPENING NOTE RECEIVED REPORT FROM PM NURSE.PATIENT IN BED WITH HOB ELEVATED.SLEEPING. TRACH TO VENT , TOLERATING SETTINGS ORDERED. NO CARDIAC OR RESPIRATORY DISTRESS NOTED, ST ON MONITOR HR 104. VILMA MIDLINE SL, G TUBE WITH GLUCERNA AT 45 ML /HR STARTED, VILLANUEVA CATHETER DRAINING TO GRAVITY YELLOW CLOUDY URINE.BILATERAL HEELS ELEVATED.GENERALIZED EDEMA WITH WEEPING EDEMA IN R ARM.SAFETY MEASURES IN PLACE. BED IN LOW LOCKED POSITION.SRX3.BED ALARM ON. WILL CONTINUE TO MONITOR .
[2019-06-09 07:17] LABS: CALCIUM, SERUM 8.9 mg/dL (8.5-10.1); CARBON DIOXIDE 36 mmol/L (21-32); CHLORIDE 108 mmol/L (98-107); CREATININE 0.7 mg/dL (0.6-1.3); GLUCOSE 259 mg/dL (74-106); PHOSPHORUS 2.6 mg/dL (2.5-4.9); POTASSIUM 3.4 mmol/L (3.5-5.1); SODIUM SERUM 148 mmol/L (136-145); UREA NITROGEN, BLOOD 66 mg/dL (7-18)
--- NOTE | 2019-06-09 07:17 | NUR ---
HOME PARAPROFESSIONAL NOTES NO ACUTE CHANGES NOTED DURING THE SHIFT. PROVIDED COMFORT AND SAFETY. WOUND CARE DONE. WILL ENDORSE TO THE AM NURSE FOR CONTINUITY OF CARE.
[2019-06-09] MEDS: ACETYLCYSTEINE 10% SOLN 400 MG/4 ML VIAL NEB SCH ×2 (07:42→15:30)
[2019-06-09 08:00] VITALS: BP 100/67
[2019-06-09] MEDS: PROSOURCE / PROSTAT (PYXIS) 30 ML UDC GT SCH (08:15)
[2019-06-09] MEDS: FOLIC ACID 1 MG TABLET PO SCH (08:15)
[2019-06-09] MEDS: LISINOPRIL (10MG) 10 MG TABLET PO SCH (08:15)
[2019-06-09] MEDS: SULFAMETH/TRIMETH 800/160 MG 1 UDTAB TABLET PO SCH (08:15)
[2019-06-09] MEDS: PANTOPRAZOLE 40 MG/PACK PACK GT SCH (08:15)
[2019-06-09] MEDS: Z GUARD REMEDY 2 OZ OINT TP SCH (08:16)
[2019-06-09] MEDS: NYSTATIN/TRIAMCIN CREAM 15 GM TUBE TP SCH (08:16)
[2019-06-09] MEDS: THERAHONEY GEL 1.5 OZ TUBE TP SCH (08:16)
[2019-06-09] MEDS: ENOXAPARIN SODIUM 60 MG/0.6 ML DISP.SYRIN SQ SCH (08:24)
--- NOTE | 2019-06-09 10:28 | NUR ---
WOUND CARE CONSULT: RECEIVED WOUND CONSULT FOR TRACH SITE. NO SKIN TEAR NOTED BUT SKIN IS FRAGILE AND SUTURES NOTED. DEFER TO DR MARY GRACE PRICE, SURGEON ALREADY ON CASE. WILL SEE PRN.
[2019-06-09] MEDS ORDERED: acetaZOLAMIDE 250 MG TABLET PO SCH (10:30)
[2019-06-09 12:00] VITALS: BP 123/56
[2019-06-09] MEDS ORDERED: POTASSIUM CHLORIDE 20 MEQ TAB.PRT.SR PO SCH (12:00)
[2019-06-09] MEDS: POTASSIUM CHLORIDE 20 MEQ POWDER PACKET GT SCH ×2 (12:31→14:04)
[2019-06-09] MEDS: ACETAMINOPHEN 650 MG/20.3 ML UDC NG PRN (12:31)
[2019-06-09] MEDS ORDERED: BUMETANIDE INJ 2 MG in IV NS 0.9% 32 ML IV ONE (13:00)
--- NOTE | 2019-06-09 14:00 | NUR ---
FEDERAL JUDGE NOTE SEEN BY SPRAY PAINTER HELPER CARLITA UPDATED ABOUT PATIENT CONDITION WITH LABS,MADE AWARE THAT PATIENT HAS RESIDUAL >100CC.HOLD FEEDING.TO MAKE GOAL OF 45 NOW TOLERATED AND CONTINUE WITH LOW RATED PATIENT TOLERANCE.GOT ORDER TO DISCHARGE TO [facility].
--- NOTE | 2019-06-09 14:30 | NUR ---
FOOD AND BEVERAGE ORDER CLERK NOTE REPORT GIVEN TO DAVION PAULINO AT [facility].INSTRUCTIONS GIVEN REGARDING DVT AND TREATMENT AND FOLLOW UP AND ABOUT PRESCRIPTIONS.TO KEEP MIDLINE IN PER REQUEST.
--- NOTE | 2019-06-09 15:55 | NUR ---
SHIP'S MASTERREGIONAL PROJECT MANAGER NOTE PATIENT DC TO [facility] ACUTE IN STABLE CONDITION.NO SOB NO DISTRESS NOTED,TOLERATING VENT SETTINGS.EXIT CARE GIVEN TO RN AT FACILITY AND DAUGHTER.VERBALIZED UNDERSTANDING.SIGNED DISCHARGE DOCUMENTS.DAUGHTER TOOK ALL BELONGINGS.NO BELONGINGS WITH PATIENT.VILLANUEVA AND IV LINE INTACT.REPORT GIVEN TO PARAMEDICS.PICKED UP BY EMT.
== END 2019-06-09 15:55 | DRG 4 ==
LOC: ER 16:11 → ICU 20:25 → TELE1 05-18 20:40 → ICU 05-19 19:58 → MEDSG1 06-05 13:11 → TELE1 06-05 14:02
PROVIDERS: ADMIT Internal Medicine; ATTEND Nurse Practitioner Acute Care
PROC: 05H933Z Insertion of Infusion Device into Right Brachial Vein, Percutaneous Approach (ICD-10-PCS; 2019-05-17)
PROC: 5A09457 Assistance with Respiratory Ventilation, 24-96 Consecutive Hours, Continuous Positive Airway Pressure (ICD-10-PCS; 2019-05-19)
PROC: 5A1955Z Respiratory Ventilation, Greater than 96 Consecutive Hours (ICD-10-PCS; principal; 2019-05-21)
PROC: 0BH17EZ Insertion of Endotracheal Airway into Trachea, Via Natural or Artificial Opening (ICD-10-PCS; 2019-05-21)
PROC: 30233R1 Transfusion of Nonautologous Platelets into Peripheral Vein, Percutaneous Approach (ICD-10-PCS; 2019-05-22)
PROC: 30233N1 Transfusion of Nonautologous Red Blood Cells into Peripheral Vein, Percutaneous Approach (ICD-10-PCS; 2019-05-23)
PROC: 0DH63UZ Insertion of Feeding Device into Stomach, Percutaneous Approach (ICD-10-PCS; 2019-05-31)
PROC: 0B110F4 Bypass Trachea to Cutaneous with Tracheostomy Device, Open Approach (ICD-10-PCS; 2019-06-04)
DX: T17.890A Other foreign object in other parts of respiratory tract causing asphyxiation, initial encounter (principal); A41.9 Sepsis, unspecified organism; L89.153 Pressure ulcer of sacral region, stage 3; I21.A1 Myocardial infarction type 2; N17.0 Acute kidney failure with tubular necrosis; E43 Unspecified severe protein-calorie malnutrition; K72.00 Acute and subacute hepatic failure without coma; G92 Toxic encephalopathy; J69.0 Pneumonitis due to inhalation of food and vomit; J96.02 Acute respiratory failure with hypercapnia; J96.01 Acute respiratory failure with hypoxia; J15.6 Pneumonia due to other Gram-negative bacteria; D68.59 Other primary thrombophilia; E87.0 Hyperosmolality and hypernatremia; G91.2 (Idiopathic) normal pressure hydrocephalus; N39.0 Urinary tract infection, site not specified; D61.818 Other pancytopenia; I82.622 Acute embolism and thrombosis of deep veins of left upper extremity; I42.9 Cardiomyopathy, unspecified; G81.94 Hemiplegia, unspecified affecting left nondominant side; E87.3 Alkalosis; E83.42 Hypomagnesemia; E83.39 Other disorders of phosphorus metabolism; E11.9 Type 2 diabetes mellitus without complications; D69.6 Thrombocytopenia, unspecified; E11.65 Type 2 diabetes mellitus with hyperglycemia; Z98.2 Presence of cerebrospinal fluid drainage device; Z87.440 Personal history of urinary (tract) infections; Z87.01 Personal history of pneumonia (recurrent); Z79.899 Other long term (current) drug therapy; Z79.4 Long term (current) use of insulin; Z74.01 Bed confinement status; Z79.84 Long term (current) use of oral hypoglycemic drugs; R13.10 Dysphagia, unspecified; K52.9 Noninfective gastroenteritis and colitis, unspecified; D63.8 Anemia in other chronic diseases classified elsewhere; E87.5 Hyperkalemia; E26.9 Hyperaldosteronism, unspecified; B37.9 Candidiasis, unspecified; F03.90 Unspecified dementia, unspecified severity, without behavioral disturbance, psychotic disturbance, mood disturbance, and anxiety; I25.10 Atherosclerotic heart disease of native coronary artery without angina pectoris; I27.20 Pulmonary hypertension, unspecified; I10 Essential (primary) hypertension; K57.30 Diverticulosis of large intestine without perforation or abscess without bleeding; J39.8 Other specified diseases of upper respiratory tract; I70.0 Atherosclerosis of aorta; F09 Unspecified mental disorder due to known physiological condition; E86.0 Dehydration; X58.XXXA Exposure to other specified factors, initial encounter; Y92.9 Unspecified place or not applicable; R91.1 Solitary pulmonary nodule; R29.810 Facial weakness; E87.70 Fluid overload, unspecified; E86.1 Hypovolemia; E87.6 Hypokalemia; I48.0 Paroxysmal atrial fibrillation; K76.9 Liver disease, unspecified
CPT/HCPCS: 31720; 36415; 36569; 36600; 43246; 70450-TC; 71045-TC; 74018; 80048-TC; 80053-TC; 80061-TC; 80074; 80076-TC; 81000-TC; 82140-TC; 82272-TC; 82533; 82728-TC; 82784; 82803-TC; 82962-TC; 83540-TC; 83615-TC; 83690-TC; 83735-TC; 84100-TC; 84155; 84165; 84439-TC; 84443-TC; 84484-TC; 85025-TC; 85396; 85610-TC; 85730-TC; 86334; 86706; 86850-TC; 86921-TC; 87040-TC; 87070-TC; 87081-TC; 87086-TC; 87186-TC; 87340; 92526; 92611-TC; 93307-TC; 94002-TC; 94003-TC; 94640-TC; 94668-TC; 94760-TC; 94762-TC; 99082-TC; A4216; A4623; A6253; A7526; G0378; J0330; J0690; J1160; J1650; J1815; J2185; J2248; J2250; J2270; J2405; J2543; J2704; J2765; J3475; J3480; J3490; J7030; J7042; J7050; J7060; J7070; P9016-BL; P9034-BL; Q9963